=== PATIENT | female | born 1945 | race Caucasian/White ===

== ENCOUNTER → 2019-04-11 00:23 | Outpatient (CLI) | payer MEDICARE, MEDICAID, SELFPAY ==
[2019-04-11 01:01] LABS: Adenovirus F 40/41, stool Not Detected (NotDetected); Astrovirus Not Detected (NotDetected); Campylobacter Not Detected (NotDetected); Clostridium Difficile A/B, PCR Not Detected (NotDetected); Cryptosporidium Not Detected (NotDetected); Cyclospora Cayetanesis Not Detected (NotDetected); Entamoeba histolytica Not Detected (NotDetected); Enteroaggregative E coli Not Detected (NotDetected); Enteropathogenic E coli Not Detected (NotDetected); Enterotoxigenic E coli Not Detected (NotDetected); Giardia lamblia Not Detected (NotDetected); Norovirus Not Detected (NotDetected); Plesimonas Shigalloides, PCR Not Detected (NotDetected); Rotavirus A Not Detected (NotDetected); Salmonella, PCR Not Detected (NotDetected); Sapovirus Not Detected (NotDetected); Shiga-like toxin E coli Not Detected (NotDetected); Shigella Enterovasive E coli Not Detected (NotDetected); Vibrio Cholerae Not Detected (NotDetected); Vibrio, PCR Not Detected (NotDetected); Yersinia Entercolitica, PCR Not Detected (NotDetected)
== END ==
PROVIDERS: PCP Emergency Medicine; Visit Provider Emergency Medicine
DX: R19.7 Diarrhea, unspecified (principal)
CPT/HCPCS: 87275; 87276; 87506

== ENCOUNTER → 2019-08-08 09:52 | Outpatient (CLI) | payer MEDICARE, MEDICAID, SELFPAY ==
--- NOTE | 2019-08-08 09:54 | MM_ITS ---
PROCEDURE: MM DIG SCREENING MAMM BI W/CAD DIGITAL BREAST TOMOSYNTHESIS INCLUDED Patient Age:73Y CLINICAL INDICATION: SCREENING but no hormones but no new complaints. Noncontributory family history. COMPARISON: No exams were available for comparisonPrevious studies over 10 years ago have been purged from [facility].. TECHNIQUE: Standard CC and MLO images were obtained. R2 CAD reviewed. Bilateral digital breast tomosynthesis included. FINDINGS: Generalized fatty replacement. Low-density breast. Of mammography is most optimal in breast of this character, and lower density.. No areas of concern. No dominant mass nor suspicious calcifications.. Previous studies have been purged from [facility]. CAD highlights no significant areas of concern. Scattered benign calcifications bilaterally observed. . Tomosynthesis images show no discrete areas of concern either. Low-density breast IMPRESSION: Unremarkable negative bilateral mammogram. Diffuse the the the the the fatty replacement/low-density breast. No areas concern. Bilateral follow-up 1 year recommended BI-RAD Category: 1 Negative FOLLOW-UP: 1YR 1 Year Follow-up (A letter has been sent to the patient regarding results of the study.) Dictated by: Cordell Castellano MD 08/11/2019 09:50 Electronically signed by Cordell Castellano MD in [place] 08/11/2019 09:50
== END ==
PROVIDERS: PCP Emergency Medicine; Visit Provider Emergency Medicine
DX: Z12.31 Encounter for screening mammogram for malignant neoplasm of breast (principal)
CPT/HCPCS: 77063; 77067

== ENCOUNTER → 2019-10-24 14:29 | Outpatient (CLI) | payer MEDICARE, MEDICAID, SELFPAY ==
[2019-10-24 14:35] LABS: Adenovirus F 40/41, stool Not Detected (NotDetected); Astrovirus Not Detected (NotDetected); Campylobacter Not Detected (NotDetected); Clostridium Difficile A/B, PCR Not Detected (NotDetected); Cryptosporidium Not Detected (NotDetected); Cyclospora Cayetanesis Not Detected (NotDetected); Entamoeba histolytica Not Detected (NotDetected); Enteroaggregative E coli Not Detected (NotDetected); Enteropathogenic E coli Not Detected (NotDetected); Enterotoxigenic E coli Not Detected (NotDetected); Giardia lamblia Not Detected (NotDetected); Norovirus Not Detected (NotDetected); Plesimonas Shigalloides, PCR Not Detected (NotDetected); Rotavirus A Not Detected (NotDetected); Salmonella, PCR Not Detected (NotDetected); Sapovirus Not Detected (NotDetected); Shiga-like toxin E coli Not Detected (NotDetected); Shigella Enterovasive E coli Not Detected (NotDetected); Vibrio Cholerae Not Detected (NotDetected); Vibrio, PCR Not Detected (NotDetected); Yersinia Entercolitica, PCR Not Detected (NotDetected)
== END ==
PROVIDERS: Visit Provider Emergency Medicine
DX: R19.7 Diarrhea, unspecified (principal)
CPT/HCPCS: 87506

== ENCOUNTER 2020-03-05 14:09 | Emergency (ER) | payer MEDICARE, MEDICAID, SELFPAY ==
[2020-03-05 14:10] VITALS: BP 125/90; PULSE 89; RESP 16; TEMP 36.5; O2SAT 98; BMI 31.3
--- NOTE | 2020-03-05 14:29 | XR_ITS ---
PROCEDURE: XR HIP BI W PEL1V CLINICAL INDICATION: fall COMPARISON: No exams were available for comparison FINDINGS: No fracture or dislocation is evident. There is prominent osteophytic spurring right-sided at the L4-5 level. There is a transitional vertebrae lumbosacral junction with unilateral pseudoarthrosis on the left side. Both hips are normally articulated with no significant arthritic change either side. The SI joints and symphysis pubis appear normal. 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 Francisco Shell MD 03/05/2020 15:26 Dr. Francisco Shell MD in [place] 03/05/2020 15:26
--- NOTE | 2020-03-05 14:29 | CT_ITS ---
PROCEDURE: CT LUMBAR SPINE WO CON Referring Doctor: Chavez Engel Patient Age:74Y CLINICAL HISTORY: fall lumbar pain fell 2 days ago with pain low back and coccyx area but of COMPARISON: CR XR HIP BI W PEL1V from 03/05/2020 TECHNIQUE: no IV contrast Axial images obtained with sagittal and coronal reformats. All CT scans at the facility use one or more dose reduction, viz: automated exposure control, ma/kV adjustment per patient size (including targeted exams where dose is matched to indication, i.e. head), or iterative reconstruction technique. FINDINGS: A scanning performed from inferior T10 through S5 sacral vertebra. The coccyx is not included but the sacrum appears intact through this level down to the sacral coccygeal junction. SI joints appear intact with minor degenerative change but L5 is transitional vertebra with sacralization to the left aspect of L5 of there is narrowed L5/S1 disc space due to his transitional nature L4/5.. Degenerative disc space narrowing; diffuse disc bulge with mild posterior ridging. Facet hypertrophy most pronounced to the right. Features combine 2 yield moderate pronounced right recess and right foraminal encroachment . Mild left recess and foraminal encroachment. L3/4. Mild disc space narrowing. Diffuse disc bulge. Mild degenerative anterior listhesis of L3 on L4 3-4 mm here to the left. The diffuse disc bulge most evident towards the left foramen. Prominent facet hypertrophy bilaterally most severe on the left. Combination of features yields moderate central canal stenosis and prominent left foraminal and recess encroachment. Facet hypertrophy indents the thecal sac to the left. Moderate right foraminal encroachment L2/3. Mild diffuse disc bulge There is a minimal inferior endplate fracture/compression fracture at L2. This is most convincing on the axial images, 53 52 51 50. A fracture line can be seen passing along the left aspect of the vertebral body with mild cortical step-off laterally on axial image 51. There also is likely some mild transverse fracture line extending to the posterior cortex on image 53 and 52. I believe we do see some mild edema overlying this fracture on the left on these images as well. . Also note on the sagittal images there is subtle retropulsion at the inferior posterior margin of L2, best seen on sagittal image 34 . This feature does diffusely indent the thecal sac,. Most notable just to the right of midline. Above fracture was not reported on the V preliminary report thus I notified maribel in the ER of these findings and he will have the patient follow-up with orthopedics. L1/2. Mild disc space narrowing posteriorly T12/L1 disc space well maintained T11/12 a degenerative disc space narrowing with scant bulge. T10-11 degenerative disc space narrowing. Anterior marginal osteophytes are most evident lower thoracic spine and minimal at the thoracic Atherosclerotic calcification origin of the renal arteries but no additional retroperitoneal findings transverse processes intact IMPRESSION: 1..Mild acute compression fracture at the inferior aspect of L2 vertebral body . With this there is slight retropulsion of the inferior posterior corner of L2 but this only slightly indents the thecal sac. 2..--Multilevel degenerative changes lumbar spine: .. L3/4. Spinal stenosis and foraminal/recess encroachment most pronounced to the left. Mild degenerative anterolisthesis of L3 on 4. Exuberant facet hypertrophy most pronounced to the left, along with diffuse disc bulge more evident than left yield a left foraminal recess encroachment along with spinal stenosis ..L4/5: Degenerated disc w
[2020-03-05 14:39] VITALS: BP 125/90; PULSE 85; O2SAT 93
[2020-03-05 15:09] VITALS: BP 110/63; PULSE 82
--- NOTE | 2020-03-05 15:39 | PC.NURSE ---
Patient gone to radiology
--- NOTE | 2020-03-05 15:58 | PC.NURSE ---
pt returned from rad
--- NOTE | 2020-03-05 16:13 | HMH.EDFALL ---
ED Disposition Clinical Impression: Chronic back pain Qualifiers: Back pain location: low back pain Back pain laterality: midline Sciatica presence: without sciatica Qualified Code(s): M54.5 - Low back pain; G89.29 - Other chronic pain Disposition: Xfer SNF Condition on Discharge: Good Instructions: DI for Chronic Pain -- Adult Additional Instructions: Recommend Tylenol and ibuprofen for chronic back pain. Would not recommend opiates for managing this pain and further follow-up should be with primary care. Referrals: Zaheer Buchanan MD [Primary Care Provider] - - Critical Care Critical Care Time: No Attestation: On 03/05/20, the high probability of a clinically significant, sudden or life threatening deterioration of the following system(s) required my full and direct attention, intervention and personal management. The time I documented below is in addition to time spent performing reported procedures but includes the following listed in this critical care notation. Medical Decision Making - Paramjit Inquiry Pt receiving controlled substance: No Vital Signs: 03/05/20 14:10 03/05/20 14:39 03/05/20 15:09 Temperature 97.7 F Temperature Source Oral Pulse Rate [Radial] 89 85 82 Respiratory Rate 16 Blood Pressure [Right Arm] 125/90 125/90 110/63 Blood Pressure Mean [Right Arm] 101 101 78 Blood Pressure Source [Right Arm] Automatic Cuff Automatic Cuff Blood Pressure Position [Right Arm] Sitting Sitting Sitting 02 Sat by Pulse Oximetry 98 93 L Oxygen Delivery Method Room Air Room Air Orders (Tests/Meds): ED MEDICATIONS Discontinued Medications Generic Name Dose Route Start Last Admin Trade Name Freq PRN Reason Stop Dose Admin Acetaminophen 650 mg 03/05/20 14:31 03/05/20 15:58 Acetaminophen 325mg Tab PO 03/05/20 14:32 650 mg ONCE ONE Administration Ibuprofen 400 mg 03/05/20 14:31 03/05/20 15:58 Ibuprofen 400 Mg Tablet PO 03/05/20 14:32 400 mg ONCE ONE Administration ORDERS Category Date Time Status CT lumbar spine wo con Stat Cat Scan 03/05/20 14:29 Taken - Radiology Data #1 Image(s): Pelvis, Hip Image Reviewed: Yes I reviewed the patient's radiology image, Yes I have reviewed radiologist's interpretation Preliminary Findings: Normal/NAD - CT Data CT Scan: L-Spine Time Received: 16:[address] Reviewed: Yes: I have viewed the radiologist's interpretation Preliminary Findings: Normal/NAD Medical Decision Narrative: 74-year-old female who presents for reevaluation from a fall that happened on 1221. Patient is well-appearing and nontoxic on initial examination has no compressive symptoms and no focal neurologic deficits. Hip x-rays and pelvic x-rays will be ordered as well as a lumbar spine CT. Patient is given Tylenol and ibuprofen for pain. X-rays were reviewed demonstrating no acute abnormalities. CT spine demonstrates no acute fracture or other abnormalities. Patient will be discharged back to custodial facility. Fall HPI - General Chief Complaint: Fall Stated Complaint: PAIN Time Seen by Provider: 03/05/20 14:15 Mode of Arrival: EMS Source of Information: Patient, EMS Limitations: No Limitations Description of Symptoms (Recalled from ER Triage Doc. by RN): TO ED PER SQUAD WITH C/O FALL 02/27 WITH CONTINUED LATRELL HIP PAIN SINCE NEG. XRAYS. PT OUT OF TYLENOL #3 LAST DOSE 03/03. - History of Present Illness HPI Narrative: 74-year-old fall from nursing facility fell on the was evaluated with x-rays and sent back. She is continued to have severe lower back pain and was sent back for further evaluation including CT scan. Patient states that the pain is sharp and is similar to chronic back pain. Denies head trauma related to the fall denies headache at this time denies fever, chills, body aches. Denies difficulty with urination, weakness of the legs, saddle anesthesia. Has not fallen since that first fall on the . - Related Data
--- NOTE | 2020-03-05 16:44 | PC.NURSE ---
[facility] called to transfer pt back to [facility]
--- NOTE | 2020-03-05 16:44 | PC.NURSE ---
report called to rudy
[2020-03-05 17:11] VITALS: BP 112/70; PULSE 70; RESP 16; TEMP 36.8; O2SAT 98
== END 2020-03-05 17:12 ==
PROVIDERS: Emergency Provider Student in an Organized Health Care Education/Training Program; PCP Emergency Medicine
DX: S32.049A Unspecified fracture of fourth lumbar vertebra, initial encounter for closed fracture (principal); W01.0XXA Fall on same level from slipping, tripping and stumbling without subsequent striking against object, initial encounter; Y92.019 Unspecified place in single-family (private) house as the place of occurrence of the external cause; G89.29 Other chronic pain; E03.9 Hypothyroidism, unspecified; F03.90 Unspecified dementia, unspecified severity, without behavioral disturbance, psychotic disturbance, mood disturbance, and anxiety; E11.9 Type 2 diabetes mellitus without complications; F41.8 Other specified anxiety disorders; I10 Essential (primary) hypertension; E78.5 Hyperlipidemia, unspecified; Z79.899 Other long term (current) drug therapy
CPT/HCPCS: 72131; 73521; 99283

== ENCOUNTER → 2020-03-08 08:39 | Outpatient (POV) | payer MEDICARE, MEDICAID, SELFPAY ==
[2020-03-08 08:51] VITALS: BP 133/78; PULSE 74; RESP 18; O2SAT 98; BMI 31.5
--- NOTE | 2020-03-08 09:16 | HMH.PMCON ---
Assessment and Plan (1) Compression fracture Status: Acute Category: Medical (2) Low back pain Status: Acute Category: Medical Code(s): M54.5 - Low back pain - Assessment and plan all Dx Assessment and Plan for all problems:: Patient recently had a fall. She is having worsening pain in her left low back area and left buttock. The CT scan was performed on her lumbar spine, however, did not review her coccyx. She is having coccygeal pain as well. We will send the patient for an MRI of her lumbar spine along with her coccyx. She is on Plavix therapy if she does need to undergo any type of procedures in the future. She is on Plavix for a history of strokes. Patient and I did discuss that we will not be able to provide her with any type of oral medications. She will need to seek medication management with in her long-term care facility provider recommendation. We did give the patient a position brace for her back today to wear until her next appointment for follow-up of her MRI. She has been encouraged to wear the brace while awake and when out of bed. Patient CT scan did note an L2 compression fracture, however, she is not complaining of any pain in this area. We will see her back to discuss her MRI. She has been instructed to contact clinic if she has any concerns for next morning. The patient and I specifically discussed risk factors for COVID19. These risks include, but are not limited to age greater than 60, heart or lung disease, diabetes, immunosuppression, and travel. We also discussed NSAIDs may worsen COVID19 infection or symptoms. Patient should not use NSAIDs to treat COVID19 signs or symptoms. Patient was also informed that any type of corticosteroid of any form (oral or injection) will decrease the patient's immune system response and may increase the likelihood of COVID19 infection and symptoms. And HPI - Data of Consult Patient: new to practice Consult date: 03/08/20 Requesting Physician: Dinora Patterson APRN Primary Care Provider: Zaheer Buchanan MD - Consult Narrative Reason for consult: Low back pain, left buttock pain History of present illness: Ms. David is a 74 year old female who is a resident of a local long-term care facility. Patient recently had a fall at the long-term care facility. Immediately after, she developed severe left low back pain with radiation into her left buttock. The pain is nonradiating into her lower extremities. Patient says she did not have any type of back pain prior to the fall. She says that she fell on her tailbone . She says that is where most of her pain is at. She does sit in a wheelchair mostlu through the day and says this does worsen her pain. She has difficulty with ambulation. She says her pain is a 9 out of 10 while sitting. She has been taking Tylenol 3 in the facility, however, she will not have enough to get her through the week end. She is accompanied by a employee of the long-term care facility today. Per the long-term care facility employee, Dr. Buchanan is on vacation and cannot prescribe her medication. I did discuss with the employee that someone should be process control tech for the patient through the weekend to discuss a further plan of care for medication management. Unfortunately, the patient and I did discuss that we will not be able to provide her with any type of oral medication. She did have a CT scan in the emergency room. The patient did go to the emergency room following the fall. We will review her CT scan today. CC: Dinora Patterson APRN [facility] History I have reviewed the patient's past medical history: Yes Medical History: Reports:: Anxiety, Cerebrovascular Accident, Dementia, Depression, Hyperlipidemia, Hypertension Denies:: Cancer, Diabetes Mellitus Type 1, Diabetes Mellitus Type 2, MRSA *Have you ever received a pneumonia vaccine?: Yes *Have you received a flu vaccine this season?: Yes Other Medical History: Reports: Cataracts, Hy
== END ==
PROVIDERS: PCP Emergency Medicine; Visit Provider Clinical Nurse Specialist Family Health
DX: T14.8XXA Other injury of unspecified body region, initial encounter; W19.XXXA Unspecified fall, initial encounter; Z79.01 Long term (current) use of anticoagulants
CPT/HCPCS: 99202

== ENCOUNTER → 2020-03-14 09:32 | Outpatient (CLI) | payer MEDICARE, MEDICAID, SELFPAY | PROVIDERS: PCP Emergency Medicine; Visit Provider Clinical Nurse Specialist Family Health | DX: M54.5 Low back pain (principal) ==

== ENCOUNTER → 2020-03-22 10:26 | Outpatient (POV) | payer MEDICARE, MEDICAID, SELFPAY ==
[2020-03-22 11:16] VITALS: BP 138/85; PULSE 89; RESP 18; TEMP 36.9; O2SAT 98; BMI 36.1
--- NOTE | 2020-03-22 14:54 | P.CONS_ITS ---
[facility] Pain Management SOAP Note Subjective:: Patient is a pleasant 74-year-old white female who presents today for follow-up. Patient is having a lot of left hip and back pain. Patient has pain over her SI joint. She has a positive Saul test SI joint compression test Craig's test on the left side along with left hip pain. Patient has no radiation of the pain at this time. Patient does not have low back pain at this time patient had a recent fall and this contributed to her pain. Patient and I discussed a SI joint injection she is interested in pursuing this. She is currently a residential resident. ROS General: no recent weight change, no fever, no sleep disturbances Respiratory: no cough, no shortness of air, no recurring pulmonary infections Cardiovascular/Peripheral Vascular: No chest pain, No palpitations, no edema, no shortness of breath. Gastrointestinal: no new onset incontinence, normal bowel movements reported Genitourinary: no new onset incontinence Musculoskeletal: Back pain, SI joint pain The left side Psychiatric: normal mood/ affect Neurological: [denies new onset weakness in extremities], [denies new onset balance issues] Objective:: Physical Exam General: Alert and oriented x3, no acute distress, pleasant and cooperative, [on room air] Lungs: Resps E/U, Symmetrical chest expansion, Eyes: PERRL Musculoskeletal: Flexion and extension of lumbar spine somewhat guarded secondary to pain, deep tendon reflexes normal, strength in upper and lower extremities [5/5], [abnormal gait noted] Neurological: speech clear, cancer program coordinator equal, no gross sensory deficits Assessment:: Sacroiliitis Plan:: We will schedule the patient for left SI joint injection. I will follow-up with her after her injection reassess her symptoms at that time she has been instructed to call the office if she has any issues prior to her next appointment. Patient was ordered an MRI however she was unable to complete it due to pain. Dr. Delgado has reviewed this note and agrees with this plan of care. This note was dictated using voice recognition software and may contain errors or omissions [facility] History I have reviewed the patient's past medical history: Yes Medical History: Reports:: Anxiety, Cerebrovascular Accident, Dementia, Depression, Hyperlipidemia, Hypertension Denies:: Cancer, Diabetes Mellitus Type 1, Diabetes Mellitus Type 2, MRSA *Have you ever received a pneumonia vaccine?: Yes *Have you received a flu vaccine this season?: Yes Other Medical History: Reports: Cataracts, Hypothyroidism, Thyroid Disease Amputation: No Fractures: No - *Social History Smoking Status: Never smoker Alcohol Intake: never *Occupational Status:: other Housing: house Household Members: other *Travel in the last 8 weeks: None - Psychiatric History Pschychiatric History:: Reports:: Anxiety, Depression Family Hx:: No significant family history
== END ==
PROVIDERS: Visit Provider Clinical Nurse Specialist Family Health
DX: M46.1 Sacroiliitis, not elsewhere classified (principal)
CPT/HCPCS: 99212; G0463

== ENCOUNTER → 2020-04-13 10:06 | Day surgery (SDC) | payer MEDICARE, MEDICAID, SELFPAY ==
[2020-04-13 10:14] VITALS: BP 149/96; PULSE 110; RESP 20; TEMP 36.3; O2SAT 98; BMI 35.2
--- NOTE | 2020-04-13 10:41 | P.PCN_ITS ---
- Procedure Date: 04/13/20 Time: 10:41 Anesthesiologist:: Dylan Delgado MD Complications:: None Pre-procedure Diagnosis:: Sacroiliitis Post-procedure Diagnosis:: Same Indications for Procedure:: Patient is a pleasant 74-year-old white female who we are treating for left- sided hip pain. She is tender over the left SI joint. She does have a positive Craig's test on the left side. She is positive Saul test on left side. She is positive SI joint compression test on left side. Will do left SI joint injection under fluoroscopy today to help with her pain symptoms. Procedure Details:: Left SI joint injection under fluoroscopy Informed consent was obtained and the risks and benefits of the procedure was explained to the patient. Patient was taken to the procedure room. Patient was placed prone on the procedure table. The left hip was prepped using ChloraPrep. The skin and subcutaneous tissues were anesthetized using lidocaine. I placed a 22-gauge spinal needle into the inferior aspect of the left SI joint. Needle placement was confirmed with dye. After this we injected 5 mL bupivacaine 0.25% and Depo-Medrol 40 mg into the left SI joint. The patient tolerated the procedure well with no complication. Plan and Disposition:: We will follow-up with her in 2 weeks. Will reevaluate her symptoms at that time.
[2020-04-13 10:43] VITALS: BP 132/85; PULSE 85; RESP 18
[2020-04-13 10:44] VITALS: BP 128/89; PULSE 85; RESP 18; O2SAT 99
[2020-04-13 10:51] VITALS: BP 140/90; PULSE 99; RESP 18; O2SAT 98
== END | disposition home or self-care (01) ==
PROVIDERS: PCP Emergency Medicine; Visit Provider Anesthesiology
DX: M46.1 Sacroiliitis, not elsewhere classified (principal); I10 Essential (primary) hypertension; E78.5 Hyperlipidemia, unspecified; Z88.8 Allergy status to other drugs, medicaments and biological substances; Z87.448 Personal history of other diseases of urinary system; E07.9 Disorder of thyroid, unspecified
CPT/HCPCS: 27096; G0260; J1040; Q9966

== ENCOUNTER → 2020-05-10 11:30 | Outpatient (POV) | payer MEDICARE, MEDICAID, SELFPAY ==
[2020-05-10 11:46] VITALS: BP 133/78; PULSE 85; RESP 18; O2SAT 98; BMI 43.0
--- NOTE | 2020-05-10 12:04 | HMH.PAINSOAP ---
[facility] Pain Management SOAP Note Subjective:: Patient is a pleasant 74-year-old white female who presents today for follow-up after a left SI joint injection. Patient says that she got up to 70% relief for about a month after the injection. Her pain has returned. She says that the pain is radiating into her left low back left buttock and left hip. She rates her pain a 7 out of 10 today. She would like to follow-up with her repeat Christopher injection. Review of Systems General: No recent weight changes, no fever, no sleep disturbances Respiratory: No cough, no shortness of air, no recurring pulmonary infections Cardiovascular/peripheral vascular: No chest pain, no palpitations, no edema, no shortness of breath Gastrointestinal: No new onset incontinence, normal bowel movements reported Genitourinary: No new onset incontinence Musculoskeletal: Left low back pain radiating into left buttock and left hip and left leg Psychiatric: Normal mood/affect Neurological: [Denies weakness in extremities], [denies balance issues] Objective:: Physical exam General: Alert and oriented x3, no acute distress, pleasant and cooperative, [on room air] Lungs: Respirations even and unlabored, symmetrical chest expansion Eyes: PERRL Musculoskeletal: Flexion and extension of lumbar spine somewhat guarded secondary to pain, deep tendon reflexes normal, strength in upper and lower extremities [5/5], [abnormal gait noted], positive Craig's test, positive compression test, positive distraction test Neurological: Speech clear, prep person equal, no gross sensory deficit Assessment:: Sacroiliitis left side, low back pain Plan:: We will schedule the patient for repeat left SI joint injection. She did get 70% relief for about a month. We will plan to see her back in the clinic after injection to reevaluate her symptoms. She will continue with a home stretching program. She has been instructed to contact clinic if she has any concerns before her next appointment. Risks and benefits of the procedure have been explained to the patient. Patient would like to proceed with the procedure. The patient and I specifically discussed risk factors for COVID19. These risks include, but are not limited to age greater than 60, heart or lung disease, diabetes, immunosuppression, and travel. We also discussed NSAIDs may worsen COVID19 infection or symptoms. Patient should not use NSAIDs to treat COVID19 signs or symptoms. Patient was also informed that any type of corticosteroid of any form (oral or injection) will decrease the patient's immune system response and may increase the likelihood of COVID19 infection and symptoms[address] Dr. Delgado has reviewed this note and agrees with this plan of care. This note was dictated using voice recognition software and make contain errors or omissions. [facility] History I have reviewed the patient's past medical history: Yes Medical History: Reports:: Anxiety, Cerebrovascular Accident, Dementia, Depression, Diabetes Mellitus Type 2, Hyperlipidemia, Hypertension Denies:: Cancer, Diabetes Mellitus Type 1, Internal Pacemaker, MRSA, Seizures *Have you ever received a pneumonia vaccine?: Yes *Have you received a flu vaccine this season?: Yes Other Medical History: Reports: Cataracts, Hypothyroidism, Thyroid Disease Other Surgeries: No: Pacemaker Amputation: No Fractures: No - *Social History Smoking Status: Never smoker Alcohol Intake: never *Occupational Status:: other Housing: assisted living facility Household Members: other *Travel in the last 8 weeks: None - Psychiatric History Pschychiatric History:: Reports:: Anxiety, Depression Family Hx:: No significant family history
== END ==
PROVIDERS: PCP Emergency Medicine; Visit Provider Clinical Nurse Specialist Family Health
DX: M46.1 Sacroiliitis, not elsewhere classified (principal); M54.5 Low back pain
CPT/HCPCS: 99212; G0463

== ENCOUNTER 2020-05-18 10:33 | Day surgery (SDC) | payer MEDICARE, MEDICAID, SELFPAY ==
[2020-05-18 11:37] VITALS: BP 102/67; PULSE 79; RESP 18; TEMP 36.1; O2SAT 93; BMI 28.8
[2020-05-18 12:05] VITALS: BP 125/78; PULSE 74; RESP 18
[2020-05-18 12:06] VITALS: BP 132/78; PULSE 74; RESP 18; O2SAT 98
--- NOTE | 2020-05-18 12:11 | HMH.PMPROC ---
- Procedure Date: 05/18/20 Time: 12:11 Anesthesiologist:: Dylan Delgado MD Complications:: None Pre-procedure Diagnosis:: Sacroiliitis Post-procedure Diagnosis:: Same Indications for Procedure:: This patient is a pleasant 74-year-old white female who we are treating for left-sided hip pain. She is tender over the left SI joint. She is positive Craig's test on the left side. She is positive Saul test on left side. She has positive SI joint compression test on the left side. She has a positive distraction test on the left side. She is done well with previous SI joint injections on the left side. She was 70 to 80% better for a couple months after her last injection. Her pain is now returned we will do a repeat left SI joint injection under fluoroscopy today. Procedure Details:: Left SI joint injection under fluoroscopy Informed consent was obtained and the risks and benefits of the procedure was explained to the patient. Patient was taken to the procedure room. Patient was placed prone on the procedure table. The left hip was prepped using ChloraPrep. The skin and subcutaneous tissues were anesthetized using lidocaine. I placed a 22-gauge spinal needle into the inferior aspect of the left SI joint. Needle placement was confirmed with dye. After this we injected 5 mL bupivacaine 0.25% and Depo-Medrol 40 mg into the left SI joint. The patient tolerated the procedure well with no complication. Plan and Disposition:: We will follow-up with her in 2 weeks. Will reevaluate symptoms at that time.
[2020-05-18 12:35] VITALS: BP 109/64; PULSE 72; RESP 20; O2SAT 93
== END 2020-05-18 12:20 | disposition home or self-care (01) ==
LOC: SC.PAINP 10:35
PROVIDERS: PCP Emergency Medicine; Visit Provider Anesthesiology
DX: M46.1 Sacroiliitis, not elsewhere classified (principal); I10 Essential (primary) hypertension; F32.9 Major depressive disorder, single episode, unspecified; Z86.73 Personal history of transient ischemic attack (TIA), and cerebral infarction without residual deficits; E78.5 Hyperlipidemia, unspecified; K21.9 Gastro-esophageal reflux disease without esophagitis; E07.9 Disorder of thyroid, unspecified
CPT/HCPCS: 27096; G0260; J1040; Q9966

== ENCOUNTER → 2020-06-21 10:43 | Outpatient (POV) | payer MEDICARE, MEDICAID, SELFPAY ==
[2020-06-21 11:23] VITALS: BP 125/71; PULSE 69; RESP 18; TEMP 37; O2SAT 98; BMI 34.4
--- NOTE | 2020-06-21 11:24 | P.CONS_ITS ---
[facility] Pain Management SOAP Note Subjective:: Patient is a pleasant 74-year-old white female who presents today for follow-up after her left SI joint injection. Patient rates her pain a 0 out of 10 she is doing extremely well. Patient states that her pain has resolved since the injection. She states she is resting better. Patient is in a facility for assisted living. ROS General: no recent weight change, no fever, no sleep disturbances Respiratory: no cough, no shortness of air, no recurring pulmonary infections Cardiovascular/Peripheral Vascular: No chest pain, No palpitations, no edema, no shortness of breath. Gastrointestinal: no new onset incontinence, normal bowel movements reported Genitourinary: no new onset incontinence Musculoskeletal: Back pain at times Psychiatric: normal mood/ affect Neurological: [denies new onset weakness in extremities], [denies new onset balance issues] Objective:: Physical Exam General: Alert and oriented x3, no acute distress, pleasant and cooperative, [on room air] Lungs: Resps E/U, Symmetrical chest expansion, Eyes: PERRL Musculoskeletal: Flexion and extension of lumbar spine somewhat guarded secondary to pain, deep tendon reflexes normal, strength in upper and lower extremities [5/5], utilizes wheelchair Neurological: speech clear, switchboard operator helper equal, no gross sensory deficits Assessment:: Sacroiliitis Plan:: We will see the patient back in 3 months reassess her symptoms at that time. I did write notes to her care facility to encourage them to call our office if she needs injections prior to this. Dr. Delgado has reviewed this note and agrees with this plan of care. This note was dictated using voice recognition software and may contain errors or omissions [facility] History I have reviewed the patient's past medical history: Yes Medical History: Reports:: Anxiety, Cerebrovascular Accident, Dementia, Depression, Diabetes Mellitus Type 2, Hyperlipidemia, Hypertension Denies:: Cancer, Diabetes Mellitus Type 1, Internal Pacemaker, MRSA, Seizures *Have you ever received a pneumonia vaccine?: Yes *Have you received a flu vaccine this season?: Yes Other Medical History: Reports: Cataracts, Hypothyroidism, Thyroid Disease Other Surgeries: Yes: No Previous Surgery. No: Pacemaker Amputation: No Fractures: No - *Social History Smoking Status: Never smoker Alcohol Intake: never *Occupational Status:: other Housing: assisted living facility Household Members: caregiver *Travel in the last 8 weeks: None - Psychiatric History Pschychiatric History:: Reports:: Anxiety, Depression Family Hx:: No significant family history
== END ==
PROVIDERS: Visit Provider Clinical Nurse Specialist Family Health
DX: M46.1 Sacroiliitis, not elsewhere classified (principal)
CPT/HCPCS: 99212; G0463

== ENCOUNTER → 2020-08-08 10:48 | Outpatient (CLI) | payer MEDICARE, MEDICAID, SELFPAY ==
--- NOTE | 2020-08-08 10:49 | MM_ITS ---
PROCEDURE INFORMATION: Exam: MG Screening 3D Mammography Exam date and time: 08/08/2020 10:49 AM Age: 74 years old Clinical indication: Encounter for screening mammogram for malignant neoplasm of breast TECHNIQUE: Imaging protocol: Screening tomosynthesis and 2D mammography including computer-aided detection (CAD) when performed. COMPARISON: MG MM DIG SCREENING MAMM BI W/CAD 08/08/2019 9:55 AM FINDINGS: MAMMOGRAPHY: Breast composition: The breasts are almost entirely fatty. Mass: None. Architectural distortion: None. Calcifications: No suspicious calcifications. Asymmetric density: None. Skin thickening: None. Axillary adenopathy: None. IMPRESSION: No mammographic evidence of malignancy. Annual screening is recommended unless otherwise clinically indicated. ASSESSMENT: BI-RADS Category 1: Negative
== END ==
PROVIDERS: PCP Emergency Medicine; Visit Provider Emergency Medicine
DX: Z12.31 Encounter for screening mammogram for malignant neoplasm of breast (principal)
CPT/HCPCS: 77063; 77067

== ENCOUNTER → 2020-09-27 10:10 | Outpatient (POV) | payer MEDICARE, MEDICAID, SELFPAY ==
[2020-09-27 10:36] VITALS: PULSE 70; RESP 18; O2SAT 99; BMI 40.0
--- NOTE | 2020-09-27 13:39 | P.CONS_ITS ---
[facility] Pain Management SOAP Note Subjective:: Patient is a pleasant 75-year-old white female for follow-up. She has been treated in the past in the clinic for left sacroiliitis. Her pain is a 0 out of 10 today. She is doing well with no significant changes. She says that she is much more functional since having her injections. Her injection was performed in June 2020. Review of Systems General: No recent weight changes, no fever, no sleep disturbances Respiratory: No cough, no shortness of air, no recurring pulmonary infections Cardiovascular/peripheral vascular: No chest pain, no palpitations, no edema, no shortness of breath Gastrointestinal: No new onset incontinence, normal bowel movements reported Genitourinary: No new onset incontinence Musculoskeletal: No pain Psychiatric: Normal mood/affect Neurological: [Denies weakness in extremities], [denies balance issues] Objective:: Physical exam General: Alert and oriented x3, no acute distress, pleasant and cooperative, [on room air] Lungs: Respirations even and unlabored, symmetrical chest expansion Eyes: PERRL Musculoskeletal: Flexion and extension of [] spine nonguarded, deep tendon reflexes normal, strength in upper and lower extremities [5/5], [abnormal gait noted] Neurological: Speech clear, vegetable preparer equal, no gross sensory deficit Assessment:: Sacroiliitis left Plan:: Patient is doing well overall. We will plan to follow-up with her in 6 months for reevaluation of symptoms. She has been instructed to contact the clinic if she has any concerns before next appointment. Patient has been instructed to contact the clinic with any concerns before the next appointment. Dr. Delgado has reviewed this note and agrees with this plan of care. This note was dictated using voice recognition software and make contain errors or omissions. [facility] History I have reviewed the patient's past medical history: Yes Medical History: Reports:: Anxiety, Cerebrovascular Accident, Dementia, Depression, Diabetes Mellitus Type 2, Hyperlipidemia, Hypertension Denies:: Cancer, Diabetes Mellitus Type 1, Internal Pacemaker, MRSA, Seizures *Have you ever received a pneumonia vaccine?: Yes *Have you received a flu vaccine this season?: Yes Other Medical History: Reports: Cataracts, Hypothyroidism, Thyroid Disease Other Surgeries: Yes: No Previous Surgery. No: Pacemaker Amputation: No Fractures: No - *Social History Smoking Status: Never smoker Alcohol Intake: never *Occupational Status:: unemployed Housing: assisted living facility Household Members: caregiver *Travel in the last 8 weeks: None - Psychiatric History Pschychiatric History:: Reports:: Anxiety, Depression Family Hx:: No significant family history
== END ==
PROVIDERS: Visit Provider Clinical Nurse Specialist Family Health
DX: M46.1 Sacroiliitis, not elsewhere classified (principal)
CPT/HCPCS: 99212; G0463

== ENCOUNTER 2021-01-07 13:09 | Emergency (ER) | payer MEDICARE, MEDICAID, SELFPAY ==
[2021-01-07 13:09] VITALS: BP 106/45; PULSE 79; RESP 20; TEMP 36.4; O2SAT 98; BMI 28.1
--- NOTE | 2021-01-07 13:14 | CT_ITS ---
PROCEDURE: CT HEAD/BRAIN WO CON CLINICAL INDICATION: trauma Head injury with headache/pain, contusion, abrasion or hematoma COMPARISON: CT HEADWO CT head/brain wo con from 06/25/[address] head/brain wo con from 07/13/2017 TECHNIQUE: Axial images obtained. All CT scans at the facility use one or more dose reduction, viz: automated exposure control, ma/kV adjustment per patient size (including targeted exams where dose is matched to indication, i.e. head), or iterative reconstruction technique. FINDINGS: No midline shift, mass effect, intracranial hemorrhage, hydrocephalus, or extra-axial fluid collection is evident. There is generalized atrophy with hypoattenuation of the periventricular white matter consistent with microangiopathic changes. 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 Old lacunar infarctions involve the left basal ganglia. No acute calvarial fracture. No mastoid effusion or sinus air-fluid level. 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 Dictated by: Shayne Zhao MD 01/07/2021 14:01 Shayne Zhao MD in [facility] 01/07/2021 14:01
--- NOTE | 2021-01-07 13:23 | ECG_ITS ---
APPROVED REPORT Exam: Resting ECG HR:82 bpm ECG Measurements Heart Rate 82 AXES OK 166 P 44 QRSd 88 QRS 50 QT 418 T 72 QTc 488 Conclusion Sinus rhythm with premature atrial complexes with aberrant conduction Low voltage QRS Borderline ECG Electronically signed by : Trent Buchanan MD 01/07/2021 20:20:40
[2021-01-07 13:37] LABS: Basophils # 0.1 K/mm3 (0-0.2); Basophils % 0.7 % (0.1-2.0); Eosinophils # 0.3 K/mm3 (0.0-0.4); Eosinophils % 3.1 % (0.1-12.0); Hematocrit 35.9 % (37.0-47.0); Hemoglobin 11.3 g/dL (12.2-16.2); Lymphocytes # 4.2 K/mm3 (0.7-4.5); Lymphocytes % 44.5 % (10-50); Mean Corpuscular HGB Conc 31.4 g/dL (31.8-35.4); Mean Corpuscular Hemoglobin 29.6 pg (27.0-31.2); Mean Corpuscular Volume 94.2 fl (81-99); Monocytes # 0.4 K/mm3 (0.1-1.0); Monocytes % 4.1 % (1.7-9.3); Neutrophils # 4.5 K/mm3 (1.8-7.8); Neutrophils % 47.7 % (37.0-80.0); Platelet Count 256 K/mm3 (142-424); Red Blood Count 3.81 M/mm3 (4.20-5.40); Red Cell Distribution Width 13.9 % (11.5-17.5); White Blood Count 9.5 K/mm3 (4.8-10.8)
[2021-01-07 13:42] LABS: Chloride 104 mmol/L (98-107); Potassium 4.8 mmoL/L (3.5-5.1)
[2021-01-07 13:43] LABS: Sodium 140 mmol/L (136-145)
[2021-01-07 13:45] LABS: Blood Urea Nitrogen 23 mg/dl (7-17); Creatinine Clearance Estimated 40 mL/min (50-200); Estimated Glomerular Filt Rate 32 ml/min (>60); GFR (African American) 38 ML/MIN (>60)
[2021-01-07 13:46] LABS: Glucose 141 mg/dl (74-100)
[2021-01-07 13:47] LABS: Anion Gap 16.8 mEq/L (5-15); Calcium 8.5 mg/dl (8.4-10.2); Carbon Dioxide 24 mmol/L (22.0-30.0); INR 0.97 (0.9-1.1)
--- NOTE | 2021-01-07 14:09 | HMH.EDGENADL ---
ED Disposition Clinical Impression: Fall Qualifiers: Encounter type: initial encounter Qualified Code(s): W19.XXXA - Unspecified fall, initial encounter Disposition: Home, Self-Care Condition on Discharge: Good Additional Instructions: No acute findings. Possible aneurysm appreciated on CT. You cannot have a contrasted CT study because of your kidney function. Recommend outpatient MRA. Your PCP will have to order this. Referrals: Provider,Referral, [Primary Care Provider] - (1 to 2 days PCP) Time of Disposition: 14:13 - Critical Care Critical Care Time: No Attestation: On 01/07/21, the high probability of a clinically significant, sudden or life threatening deterioration of the following system(s) required my full and direct attention, intervention and personal management. The time I documented below is in addition to time spent performing reported procedures but includes the following listed in this critical care notation. Medical Decision Making - Medical Records Medical records reviewed: Yes: I reviewed the patient's medical records. - Paramjit Inquiry Pt receiving controlled substance: No Vital Signs: 01/07/21 13:09 Temperature 97.6 F Temperature Source Oral Pulse Rate [Left Radial] 79 Respiratory Rate 20 Blood Pressure [Right Arm] 106/45 L Blood Pressure Mean [Right Arm] 65 Blood Pressure Source [Right Arm] Automatic Cuff Blood Pressure Position [Right Arm] Sitting 02 Sat by Pulse Oximetry 98 Oxygen Delivery Method Room Air - Lab Data Lab results reviewed: Yes: I reviewed the patient's lab results. Lab Results 01/07/21 13:30: WBC 9.5, RBC 3.81 L, Hgb 11.3 L, Hct 35.9 L, MCV 94.2, MCH 29.6, MCHC 31.4 L, RDW 13.9, Plt Count 256, MPV 9.0, Neut % (Auto) 47.7, Lymph % (Auto) 44.5, [place] % (Auto) 4.1, Eos % (Auto) 3.1, Baso % (Auto) 0.7, Neut # (Auto) 4.5, Lymph # (Auto) 4.2, [place] # (Auto) 0.4, Eos # (Auto) 0.3, Baso # (Auto) 0.1 01/07/21 13:30: PT 11.0, INR 0.97 01/07/21 13:30: Sodium 140, Potassium 4.8, Chloride 104, Carbon Dioxide 24, Anion Gap 16.8 H, BUN 23 H, Creatinine 1.60 H, Estimated Creat Clear 40, Estimated GFR 32 L, Est GFR ( Amer) 38 L, Glucose 141 H, Calcium 8.5 Result diagrams: 01/07/21 13:30 01/07/21 13:30 - CT Data CT Scan: Head Time Received: 14:[address] Reviewed: Yes: I have viewed the radiologist's interpretation Preliminary Findings: Abnormal Findings Narrative: No acute intracranial finding 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 - ECG Data Tracing #1 I reviewed this ECG and interpreted as documented below: Sinus rhythm with occasional PAC. [address] elevation or depression. Normal intervals. ECG initial impression date: 01/07/21 ECG initial impression time: 13:24 Medical Decision Narrative: 75yo F evaluated for bumping her head on the wall. Patient no acute distress on initial evaluation. CT obtained and reviewed as above. They do recommend a CTA versus MRA. Patient's creatinine function is such that she cannot have a CTA. Patient can have MRA arranged outpatient. No acute findings on today's evaluation. General Adult HPI - General Chief complaint: Head Injury Stated complaint: injury to head Time Seen by Provider: 01/07/21 14:00 Mode of Arrival: EMS Limitations: No Limitations Description of Symptoms (Recalled from ER Triage Doc. by RN): pt hit her head on the wall when getting out of bed at the half-way. Pt denies any issues at this time. No loc - History of Present Illness HPI narrative: 75yo F presents the emergency department from half-way after bumping her head on the wall. Patient reports she stood up bumped her head on the wall and then sat back down in the bed. Denies any headache, visual change, nausea or vomiting. No history of intracranial bleed. Takes Plavix. Denies any other acute concerns at this time. - Related Data Home Medications Medication Instructions Recor
[2021-01-07 14:23] VITALS: BP 118/56; PULSE 80; RESP 20; TEMP 36.4; O2SAT 98
--- NOTE | 2021-01-07 14:27 | PC.NURSE ---
called report to ruyd that pt was returning
== END 2021-01-07 14:26 | disposition home or self-care (01) ==
PROVIDERS: Emergency Provider Family Medicine
DX: S00.90XA Unspecified superficial injury of unspecified part of head, initial encounter (principal); W18.00XA Striking against unspecified object with subsequent fall, initial encounter; Y92.122 Bedroom in nursing home as the place of occurrence of the external cause; F41.8 Other specified anxiety disorders; E78.5 Hyperlipidemia, unspecified; I10 Essential (primary) hypertension; E03.9 Hypothyroidism, unspecified; Z79.01 Long term (current) use of anticoagulants
CPT/HCPCS: 70450; 80048; 85025; 85610; 93005; 99283

== ENCOUNTER → 2021-01-16 15:47 | Outpatient (CLI) | payer MEDICARE, MEDICAID, SELFPAY ==
--- NOTE | 2021-01-16 15:50 | MR_ITS ---
PROCEDURE: MR ANGIO HEAD WO CON CLINICAL INDICATION: BASILAR TIP ANEURYSM COMPARISON: No exams were available for comparison TECHNIQUE: 3D [id number] images are obtained with multi slab reformats. FINDINGS: There is tortuosity with minimal ectasia of the basilar artery. There is no evidence of basilar tip aneurysm. The abnormality noted on the CT scan represents some tortuosity of the left posterior cerebral artery.. There is a small focal area of protrusion involving the posterior aspect of the suprasellar portion of the right internal carotid artery. This measures approximately 2.5 mm in with at its base and 2 mm in AP dimension. 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 This is best demonstrated on the left the right C0 W MIP images. No other significant anomalies are evident. No AVM or major intracranial occlusive process. IMPRESSION: 1. No evidence of basilar tip aneurysm. 2. Small outpouching along the posterior aspect of the suprasellar portion of the right internal carotid artery consistent with a small infundibulum of the PICA. Suggest 6 month follow-up to confirm short term stability. A small aneurysm would be included in the differential diagnosis. Dictated by: Shayne Zhao MD 01/17/2021 07:33 Shayne Zhao MD in [facility] 01/17/2021 07:33
== END ==
PROVIDERS: Visit Provider Emergency Medicine
DX: S09.90XA Unspecified injury of head, initial encounter (principal); W19.XXXA Unspecified fall, initial encounter
CPT/HCPCS: 70544

== ENCOUNTER → 2021-03-07 16:01 | Outpatient (CLI) | payer MEDICARE, MEDICAID, SELFPAY ==
[2021-03-07 16:11] LABS: Adenovirus,PCR Not Detected (NotDetected); Bordetella Pertussis Not Detected (NotDetected); Chlamydophila Pneumoniae, PCR Not Detected (NotDetected); Coronavirus 19, PCR Not Detected (NotDetected); Coronavirus 229E Not Detected (NotDetected); Coronavirus NL63 Not Detected (NotDetected); Coronavirus OC43 Not Detected (NotDetected); Coronovirus HKU1,PCR Not Detected (NotDetected); Human Metapneumovirus Not Detected (NotDetected); Influenza A, PCR Not Detected (NotDetected); Influenza AH1, 2009 Not Detected (NotDetected); Influenza AH1, PCR Not Detected (NotDetected); Influenza AH3,PCR Not Detected (NotDetected); Influenza B, PCR Not Detected (NotDetected); Mycoplasma Pneumoniae, PCR Not Detected (NotDetected); Parainfluenza 1, PCR Not Detected (NotDetected); Parainfluenza 2, PCR Not Detected (NotDetected); Parainfluenza 3, PCR Not Detected (NotDetected); Parainfluenza 4, PCR Not Detected (NotDetected); Respiratory Syncytial Virus Not Detected (NotDetected); Rhinovirus/Enterovirus Not Detected (NotDetected)
== END ==
PROVIDERS: Visit Provider Emergency Medicine
DX: Z20.822 Contact with and (suspected) exposure to COVID-19 (principal)
CPT/HCPCS: 87581; 87632; 87798; C9803; U0003; U0005

== ENCOUNTER → 2021-03-29 13:38 | Outpatient (CLI) | payer MEDICARE, MEDICAID, SELFPAY ==
[2021-03-29 13:45] LABS: Adenovirus,PCR Not Detected (NotDetected); Bordetella Pertussis Not Detected (NotDetected); Chlamydophila Pneumoniae, PCR Not Detected (NotDetected); Coronavirus 229E Not Detected (NotDetected); Coronavirus NL63 Not Detected (NotDetected); Coronavirus OC43 Not Detected (NotDetected); Coronovirus HKU1,PCR Not Detected (NotDetected); Human Metapneumovirus Not Detected (NotDetected); Influenza A, PCR Not Detected (NotDetected); Influenza AH1, 2009 Not Detected (NotDetected); Influenza AH1, PCR Not Detected (NotDetected); Influenza AH3,PCR Not Detected (NotDetected); Influenza B, PCR Not Detected (NotDetected); Mycoplasma Pneumoniae, PCR Not Detected (NotDetected); Parainfluenza 1, PCR Not Detected (NotDetected); Parainfluenza 2, PCR Not Detected (NotDetected); Parainfluenza 3, PCR Not Detected (NotDetected); Respiratory Syncytial Virus Not Detected (NotDetected); Rhinovirus/Enterovirus Not Detected (NotDetected)
[2021-03-29 19:18] LABS: Parainfluenza 4, PCR Detected (NotDetected)
== END ==
PROVIDERS: Visit Provider Emergency Medicine
DX: R55 Syncope and collapse (principal); R53.1 Weakness; B34.8 Other viral infections of unspecified site; R05.9 Cough, unspecified
CPT/HCPCS: 87486; 87581; 87632; 87798

== ENCOUNTER 2021-03-30 09:29 | Observation (INO) | payer MEDICARE, MEDICAID, SELFPAY ==
[2021-03-30] VITALS (12 sets, daily range): BP systolic 80–170; BP diastolic 48–100; PULSE 66–85; RESP 16–24; TEMP 36.7–37.6; O2SAT 92–99; BMI 30.1; BMI 32.3
--- NOTE | 2021-03-30 09:36 | PC.NURSE ---
09:36; MD at bedside.
--- NOTE | 2021-03-30 09:40 | HMH.EDGENADL ---
ED Disposition Clinical Impression: Community acquired pneumonia Disposition: Admitted as Observation Condition on Discharge: Fair - Critical Care Critical Care Time: No Attestation: On 03/30/21, the high probability of a clinically significant, sudden or life threatening deterioration of the following system(s) required my full and direct attention, intervention and personal management. The time I documented below is in addition to time spent performing reported procedures but includes the following listed in this critical care notation. Medical Decision Making - Paramjit Inquiry Pt receiving controlled substance: No Vital Signs: 03/30/21 09:29 03/30/21 10:45 03/30/21 11:00 Temperature 98.3 F Temperature Source Oral Pulse Rate 76 83 Pulse Rate [Right] 81 Respiratory Rate 18 24 20 Blood Pressure 90/48 L 80/56 L Blood Pressure [Right Arm] 170/100 H Blood Pressure Mean 63 Blood Pressure Mean [Right Arm] 123 Blood Pressure Source Blood Pressure Source [Right Arm] Automatic Cuff Blood Pressure Position Blood Pressure Position [Right Arm] Sitting 02 Sat by Pulse Oximetry 97 97 96 Oxygen Delivery Method Room Air 03/30/21 11:30 03/30/21 12:00 03/30/21 12:31 Temperature Temperature Source Pulse Rate 66 80 74 Pulse Rate [Right] Respiratory Rate 16 16 20 Blood Pressure 86/58 L 100/51 L 85/50 L Blood Pressure [Right Arm] Blood Pressure Mean 65 57 58 Blood Pressure Mean [Right Arm] Blood Pressure Source Blood Pressure Source [Right Arm] Blood Pressure Position Blood Pressure Position [Right Arm] 02 Sat by Pulse Oximetry 97 99 98 Oxygen Delivery Method 03/30/21 13:00 03/30/21 13:30 03/30/21 14:41 Temperature 99.6 F Temperature Source Oral Pulse Rate 85 80 Pulse Rate [Right] 85 Respiratory Rate 20 16 21 Blood Pressure 99/71 L 99/61 L Blood Pressure [Right Arm] 99/62 L Blood Pressure Mean 80 70 Blood Pressure Mean [Right Arm] 74 Blood Pressure Source Blood Pressure Source [Right Arm] Automatic Cuff Blood Pressure Position Blood Pressure Position [Right Arm] Supine 02 Sat by Pulse Oximetry 96 92 L Oxygen Delivery Method Room Air 03/30/21 14:43 Temperature 98.3 F Temperature Source Oral Pulse Rate 80 Pulse Rate [Right] Respiratory Rate 16 Blood Pressure 99/60 L Blood Pressure [Right Arm] Blood Pressure Mean Blood Pressure Mean [Right Arm] Blood Pressure Source Automatic Cuff Blood Pressure Source [Right Arm] Blood Pressure Position Sitting Blood Pressure Position [Right Arm] 02 Sat by Pulse Oximetry Oxygen Delivery Method Room Air - Lab Data Lab Results 03/30/21 09:32: Sodium 142, Potassium 3.8, Chloride 106, Carbon Dioxide 25, Anion Gap 14.8, BUN 27 H, Creatinine 1.90 H, Estimated Creat Clear 34, Estimated GFR 26 L, Est GFR ( Amer) 31 L, Glucose 217 H, Calcium 8.1 L, Total Bilirubin 0.2, AST 28, ALT 17, Alkaline Phosphatase 96, Troponin I < 0.01, Total Protein 6.0 L, Albumin 3.4 L, Globulin 2.6, Albumin/Globulin Ratio 1.3 03/30/21 09:32: WBC 9.3, RBC 3.99 L, Hgb 11.6 L, Hct 37.4, MCV 93.8, MCH 29.2, MCHC 31.1 L, RDW 14.4, Plt Count 239, MPV 8.2, Neut % (Auto) 56.4, Lymph % (Auto) 34.9, [place] % (Auto) 4.0, Eos % (Auto) 4.1, Baso % (Auto) 0.7, Neut # (Auto) 5.3, Lymph # (Auto) 3.3, [place] # (Auto) 0.4, Eos # (Auto) 0.4, Baso # (Auto) 0.1 03/30/21 09:32: Lipase 43 03/30/21 09:32: SARS-CoV-2 (PCR) Not detected, Influenza A Untype (PCR) Not detected, Influenza Type B (PCR) Not detected 03/30/21 09:32: Magnesium 1.8 Result diagrams: 03/30/21 09:32 03/30/21 09:32 Orders (Tests/Meds): ED MEDICATIONS Generic Name Dose Route Start Last Admin Trade Name Freq PRN Reason Stop Dose Admin Acetaminophen 650 mg 03/30/21 15:03 Acetaminophen 325mg Tab PO 04/29/21 14:24 Q4HP PRN Fever or Mild Pain Docusate Sodium 100 mg 03/31/21 09:00 Docusate Sodium 100 Mg Capsule PO 04/29/21 14:29
--- NOTE | 2021-03-30 09:46 | CT_ITS ---
PROCEDURE INFORMATION: Exam: CT Head Without Contrast Exam date and time: 03/30/2021 9:46 AM Age: 75 years old Clinical indication: Syncope and collapse TECHNIQUE: Imaging protocol: Computed tomography of the head without contrast. Radiation optimization: All CT scans at this facility use at least one of these dose optimization techniques: automated exposure control; mA and/or kV adjustment per patient size (includes targeted exams where dose is matched to clinical indication); or iterative reconstruction. COMPARISON: CT HEAD/BRAIN WO CON 01/07/2021 1:36 PM FINDINGS: Brain: There are low-attenuation foci in the periventricular and subcortical white matter of both hemispheres. This is a nonspecific finding which likely represents microangiopathic change in a patient of this age. There are chronic infarcts with encephalomalacia in the left frontal lobe and right parietal lobe. There are chronic lacunar infarcts in the basal ganglia bilaterally. There is no evidence of acute territorial infarction, hemorrhage, mass, mass effect, or midline shift. There are no abnormal intra-axial or extra-axial fluid collections. Cerebral ventricles: The sulci, cisterns, and ventricles are prominent, consistent with diffuse volume loss. Paranasal sinuses: There is mucosal thickening and fluid levels in both maxillary sinuses. There is fluid in the sphenoid sinus on the right, and multiple ethmoid air cells. There is fluid in both frontal recesses. Mastoid air cells: Visualized mastoid air cells are well aerated. Bones/joints: Unremarkable. No acute fracture. Soft tissues: Unremarkable. IMPRESSION: 1. No evidence of acute intracranial abnormality. 2. Chronic infarcts with encephalomalacia in the left frontal and right parietal lobes. 3. Chronic lacunar infarcts in the basal ganglia bilaterally. 4. Non-specific white matter change and volume loss as described. 5. Paranasal sinus opacification with air-fluid levels as described. Clinical correlation for acute on chronic sinusitis is recommended. 6. If there is strong clinical concern for acute intracranial abnormality, then an MRI examination of the brain should be considered for further evaluation. However, if there are no deficits on neurological exam, then follow-up imaging could be considered on a nonemergent outpatient basis as clinically warranted.
--- NOTE | 2021-03-30 09:46 | XR_ITS ---
PROCEDURE INFORMATION: Exam: XR Chest Exam date and time: 03/30/2021 9:46 AM Age: 75 years old Clinical indication: Shortness of breath; Additional info: Increased cough, hypoxia TECHNIQUE: Imaging protocol: XR of the chest. Views: 1 view. COMPARISON: CR CXR2 XR chest AP 07/13/2017 9:51 PM FINDINGS: Lungs: Hypoinflation with interstitial prominence , chronic granulomatous disease, and trace basilar airspace disease. Pleural spaces: No pleural effusion. Heart/Mediastinum: No cardiomegaly. Bones/joints: Degenerative change. IMPRESSION: Hypoinflation with interstitial prominence , chronic granulomatous disease, and trace basilar airspace disease.
--- NOTE | 2021-03-30 10:29 | ECG_ITS ---
APPROVED REPORT Exam: Resting ECG HR:84 bpm ECG Measurements Heart Rate 84 AXES VA 168 P 17 QRSd 87 QRS 31 QT 396 T 68 QTc 437 Conclusion SINUS RHYTHM WITH FREQUENT VENTRICULAR PREMATURE COMPLEXEs ISOLATED Q IN III Electronically signed by : Trent Buchanan MD 03/31/2021 14:06:21
[2021-03-30 10:46] LABS: Coronavirus 19, PCR Not Detected (NotDetected); Influenza A, PCR Not Detected (NotDetected); Influenza B, PCR Not Detected (NotDetected)
[2021-03-30 10:48] LABS: Basophils # 0.1 K/mm3 (0-0.2); Basophils % 0.7 % (0.1-2.0); Eosinophils # 0.4 K/mm3 (0.0-0.4); Eosinophils % 4.1 % (0.1-12.0); Hematocrit 37.4 % (37.0-47.0); Hemoglobin 11.6 g/dL (12.2-16.2); Lymphocytes # 3.3 K/mm3 (0.7-4.5); Lymphocytes % 34.9 % (10-50); Mean Corpuscular HGB Conc 31.1 g/dL (31.8-35.4); Mean Corpuscular Hemoglobin 29.2 pg (27.0-31.2); Mean Corpuscular Volume 93.8 fl (81-99); Mean Platelet Volume 8.2 fl (7.4-10.4); Monocytes # 0.4 K/mm3 (0.1-1.0); Neutrophils # 5.3 K/mm3 (1.8-7.8); Neutrophils % 56.4 % (37.0-80.0); Platelet Count 239 K/mm3 (142-424); Red Blood Count 3.99 M/mm3 (4.20-5.40); Red Cell Distribution Width 14.4 % (11.5-17.5); White Blood Count 9.3 K/mm3 (4.8-10.8)
[2021-03-30 10:54] LABS: Chloride 106 mmol/L (98-107); Potassium 3.8 mmoL/L (3.5-5.1); Sodium 142 mmol/L (136-145)
[2021-03-30 10:56] LABS: Lipase 43 U/L (23-300)
[2021-03-30 10:57] LABS: Alanine Aminotransferase 17 U/L (12-78); Albumin Level 3.4 g/dl (3.5-5.0); Albumin/Globulin Ratio 1.3 (1.1-1.8); Alkaline Phosphatase 96 U/L (38-126); Anion Gap 14.8 mEq/L (5-15); Aspartate Amino Transferase 28 U/L (14-36); Bilirubin,Total 0.2 mg/dl (0.2-1.3); Blood Urea Nitrogen 27 mg/dl (7-17); Carbon Dioxide 25 mmol/L (22.0-30.0); Creatinine Clearance Estimated 34 mL/min (50-200); Estimated Glomerular Filt Rate 26 ml/min (>60); GFR (African American) 31 ML/MIN (>60); Globulin 2.6 g/dL (1.3-3.2)
[2021-03-30 10:58] LABS: Calcium 8.1 mg/dl (8.4-10.2); Glucose 217 mg/dl (74-100)
--- NOTE | 2021-03-30 11:08 | PC.NURSE ---
11:09; Patient in CT
[2021-03-30 11:12] LABS: Troponin I < 0.01 ng/ml (0.00-0.034)
--- NOTE | 2021-03-30 11:19 | HMH.ITSTN ---
GFR on blood work was 26-- unable to give contrast-- brain/head CT without was done
[2021-03-30 11:28] LABS: Magnesium 1.8 mg/dl (1.6-2.3)
--- NOTE | 2021-03-30 11:36 | PC.NURSE ---
11:36; Patient on bedpan
--- NOTE | 2021-03-30 11:45 | PC.NURSE ---
11:45; patient is off the bedpan, she was unable to urinate.
--- NOTE | 2021-03-30 12:15 | PC.NURSE ---
12:15; Patient is resting comfortably at this time.
--- NOTE | 2021-03-30 14:02 | PC.NURSE ---
Report given to STEPHANIE Beltre at this time
--- NOTE | 2021-03-30 15:20 | HMH.HP ---
*Admission Date: 03/30/21 *Chief complaint: weakness *History of present illness: 75 yo female presents via ems from [facility] for weakness. Patient reports she was in shower this morning and got lightheaded which she describes as unsteady and then lost consciousness, was lowered slowly to ground by staff. per EMS noted o2 sat 88% on RA, improved on NC. pt states she has been feeling more weak than usual over last few days with increased nasal congestion,n/v and cough.Tested positive for parainfluenza virus yesterday at care home. Pt has w/ hx HTN, HLD, CVA, MDD, DM. Pt admitted for further work up, labs show THERESA, with creatinine 1.9. BUN/Cr ratio>20. CXR with right lower opacity. Will cover pneumonia with antibiotics [facility] History I have reviewed the patient's past medical history: Yes Medical History: Reports:: Anxiety, Cerebrovascular Accident, Dementia, Depression, Diabetes Mellitus Type 2, Hyperlipidemia, Hypertension Denies:: Cancer, Diabetes Mellitus Type 1, Internal Pacemaker, MRSA, Seizures *Have you ever received a pneumonia vaccine?: Yes *Have you received a flu vaccine this season?: Yes Other Medical History: Reports: Cataracts, Hypothyroidism, Thyroid Disease Other Surgeries: Yes: No Previous Surgery. No: Pacemaker Amputation: No Fractures: No - *Social History Smoking Status: Never smoker Alcohol Intake: never *Occupational Status:: unemployed Housing: assisted living facility Household Members: caregiver *Travel in the last 8 weeks: None - Psychiatric History Pschychiatric History:: Reports:: Anxiety, Depression Family Hx:: No significant family history Review of Systems - Review of Systems Review of systems:: pertinent systems reviewed and negative unless documented below - Constitutional Reports body ache(s), Reports fatigue, Reports malaise, Denies fever(s) - Eyes Denies change in vision - ENT Denies dizziness - *Cardiovascular Denies chest pain at rest - *Respiratory Reports chest congestion, Reports cough, Denies shortness of breath - *Gastrointestinal Reports nausea, Reports vomiting, Denies abdominal pain - *Genitourinary Denies urinary urgency - *Musculoskeletal Denies joint pain - Integumentary/Breasts Denies rash - *Neurologic Reports fainting - Psychiatric Denies lack of enjoyment - Endocrine Denies excessive sweating - Hematologic/Lymphatic Denies easy bruising - Allergic/Immunologic Denies GI upset with certain foods Meds Home Medications Medication Instructions Recorded Confirmed Type acetaminophen 500 mg tablet 1,000 mg PO Q6H PRN 05/01/17 06/11/20 History aspirin 81 mg chewable tablet 81 mg PO DAILY tab 05/01/17 06/11/20 History atorvastatin 40 mg tablet 40 mg PO DAILY tab 05/01/17 06/11/20 History bisacodyl 10 mg rectal suppository 10 mg [place] .every 3 days each 05/01/17 06/11/20 History clopidogrel 75 mg tablet 75 mg PO DAILY tab 05/01/17 06/11/20 History donepezil 10 mg tablet 10 mg PO QHS 05/01/17 06/11/20 History glipizide 5 mg tablet 2.5 mg PO BID tab 05/01/17 06/11/20 History guaifenesin 100 mg/5 mL oral liquid 200 mg PO ONCE PRN 05/01/17 06/11/20 History hydrochlorothiazide 25 mg tablet 25 mg PO DAILY tab 05/01/17 06/11/20 History lactulose 10 gram/15 mL oral 30 ml PO QHS PRN 05/01/17 06/11/20 History solution levothyroxine 75 mcg capsule 75 mcg PO DAILY cap 05/01/17 06/11/20 History lisinopril 40 mg tablet 40 mg PO DAILY tab 05/01/17 06/11/20 History loperamide 2 mg capsule 2 mg PO Q4H PRN 05/01/17 06/11/20 History memantine 10 mg tablet 10 mg PO BID 05/01/17 06/11/20 History metformin 500 mg tablet 500 mg PO BID 05/01/17 06/11/20 History mirtazapine 15 mg tablet 15 mg PO QHS 05/01/17 06/11/20 History risperidone 0.5 mg tablet 0.5 mg PO DAILY tab 05/01/17 06/11/20 History sennosides 8.6 mg tablet 8.6 mg PO DAILY tab 05/01/17 06/11/20 History solifenacin 5 mg tablet 5 mg PO DAILY tab 05/01/17 06/11/20 History venlafaxine 150 m
--- NOTE | 2021-03-30 19:18 | PC.NURSE ---
Pt. has rested peacefully since arriving to the floor from the ED. Vitals have been stable, pt. with no complaints at this time. Report given to Sabrina Rosa RN
[2021-03-31 04:00] VITALS: BP 110/59; PULSE 84; RESP 16; TEMP 36.9; O2SAT 93
[2021-03-31 06:00] VITALS: BMI 33.8
[2021-03-31 07:30] LABS: Basophils # 0.1 K/mm3 (0-0.2); Eosinophils # 0.4 K/mm3 (0.0-0.4); Eosinophils % 4.9 % (0.1-12.0); Hematocrit 34.9 % (37.0-47.0); Lymphocytes # 3.2 K/mm3 (0.7-4.5); Lymphocytes % 40.1 % (10-50); Mean Corpuscular HGB Conc 31.4 g/dL (31.8-35.4); Mean Corpuscular Hemoglobin 29.2 pg (27.0-31.2); Mean Corpuscular Volume 93.1 fl (81-99); Mean Platelet Volume 8.3 fl (7.4-10.4); Monocytes # 0.4 K/mm3 (0.1-1.0); Monocytes % 4.8 % (1.7-9.3); Neutrophils # 3.9 K/mm3 (1.8-7.8); Neutrophils % 49.2 % (37.0-80.0); Platelet Count 201 K/mm3 (142-424); Red Blood Count 3.75 M/mm3 (4.20-5.40); Red Cell Distribution Width 14.3 % (11.5-17.5); White Blood Count 7.9 K/mm3 (4.8-10.8)
[2021-03-31 07:45] LABS: Anion Gap 13.1 mEq/L (5-15); Blood Urea Nitrogen 31 mg/dl (7-17); Calcium 8.4 mg/dl (8.4-10.2); Carbon Dioxide 27 mmol/L (22.0-30.0); Chloride 106 mmol/L (98-107); Creatinine Clearance Estimated 34 mL/min (50-200); Estimated Glomerular Filt Rate 24 ml/min (>60); GFR (African American) 30 ML/MIN (>60); Glucose 106 mg/dl (74-100); Potassium 5.1 mmoL/L (3.5-5.1); Sodium 141 mmol/L (136-145)
[2021-03-31 08:00] VITALS: BP 99/63; PULSE 79; RESP 18; TEMP 36.8; O2SAT 95
--- NOTE | 2021-03-31 09:07 | HMH.ACPN2 ---
Internal Medicine - PN: Subj *Date: 03/31/21 *Time: 09:07 Interval history: cough and sob with abn cxr from e[facility] Exam Vital signs and Labs for Last 24 Hours: Temp Pulse Resp BP Pulse Ox 98.5 F 84 16 110/59 L 93 L 03/31/21 04:00 03/31/21 04:00 03/31/21 04:00 03/31/21 04:00 03/31/21 04:00 Laboratory Results - last 24 hr 03/30/21 09:32: Sodium 142, Potassium 3.8, Chloride 106, Carbon Dioxide 25, Anion Gap 14.8, BUN 27 H, Creatinine 1.90 H, Estimated Creat Clear 34, Estimated GFR 26 L, Est GFR ( Amer) 31 L, Glucose 217 H, Calcium 8.1 L, Total Bilirubin 0.2, AST 28, ALT 17, Alkaline Phosphatase 96, Troponin I < 0.01, Total Protein 6.0 L, Albumin 3.4 L, Globulin 2.6, Albumin/Globulin Ratio 1.3 03/30/21 09:32: WBC 9.3, RBC 3.99 L, Hgb 11.6 L, Hct 37.4, MCV 93.8, MCH 29.2, MCHC 31.1 L, RDW 14.4, Plt Count 239, MPV 8.2, Neut % (Auto) 56.4, Lymph % (Auto) 34.9, [place] % (Auto) 4.0, Eos % (Auto) 4.1, Baso % (Auto) 0.7, Neut # (Auto) 5.3, Lymph # (Auto) 3.3, [place] # (Auto) 0.4, Eos # (Auto) 0.4, Baso # (Auto) 0.1 03/30/21 09:32: Lipase 43 03/30/21 09:32: SARS-CoV-2 (PCR) Not detected, Influenza A Untype (PCR) Not detected, Influenza Type B (PCR) Not detected 03/30/21 09:32: Magnesium 1.8 03/31/21 06:50: WBC 7.9, RBC 3.75 L, Hgb 11.0 L, Hct 34.9 L, MCV 93.1, MCH 29.2, MCHC 31.4 L, RDW 14.3, Plt Count 201, MPV 8.3, Neut % (Auto) 49.2, Lymph % (Auto) 40.1, [place] % (Auto) 4.8, Eos % (Auto) 4.9, Baso % (Auto) 1.0, Neut # (Auto) 3.9, Lymph # (Auto) 3.2, [place] # (Auto) 0.4, Eos # (Auto) 0.4, Baso # (Auto) 0.1 03/31/21 06:50: Sodium 141, Potassium 5.1 D, Chloride 106, Carbon Dioxide 27, Anion Gap 13.1, BUN 31 H, Creatinine 2.00 H, Estimated Creat Clear 34, Estimated GFR 24 L, Est GFR ( Amer) 30 L, Glucose 106 H D, Calcium 8.4 I & O for Last 24 hours: Intake & Output 03/28/21 03/29/21 03/30/21 03/31/21 11:59 11:59 11:59 11:59 Intake Total 360 / 360 Output Total 0 / 0 Balance 360 / 360 Weight 181 lb 191 lb 3.2 oz - Constitutional no acute distress, obese - *Routine HEENT Exam Head: Present: normocephalic Eye: Present: EOMI, PERRL ENT: Present: mucous membranes dry - *Routine Neck Exam Absent: JVD - *Routine Respiratory Exam Present: decreased breath sounds - *Routine Cardiovascular Exam Present: RRR - *Routine Abdominal Exam Present: soft - *Routine Extremities Exam Absent: calf tenderness - *Routine Skin Exam Present: intact - *Routine Neurological Exam Present: alert, oriented X3, CN II-XII intact - Routine Psychiatric Exam Present: normal affect Assessment and Plan (1) Acute kidney injury Status: Acute Category: Medical Code(s): N17.9 - Acute kidney failure, unspecified (2) Fall Status: Acute Qualifiers: Encounter type: initial encounter Qualified Code(s): W19.XXXA - Unspecified fall, initial encounter Category: Medical Code(s): W19.XXXA - Unspecified fall, initial encounter (3) Pre-syncope Status: Acute Category: Medical Code(s): R55 - Syncope and collapse (4) Essential (primary) hypertension Status: Chronic Category: Medical Code(s): I10 - Essential (primary) hypertension (5) Hyperlipidemia, unspecified Status: Chronic Qualifiers: Hyperlipidemia type: other hyperlipidemia Category: Medical Code(s): E78.5 - Hyperlipidemia, unspecified (6) Hypothyroidism, unspecified Status: Chronic Qualifiers: Hypothyroidism type: other Qualified Code(s): E03.8 - Other specified hypothyroidism Category: Medical Code(s): E03.9 - Hypothyroidism, unspecified (7) Major depressive disorder, recurrent, unspecified Status: Chronic Category: Medical Code(s): F33.9 - Major depressive disorder, recurrent, unspecified (8) Type 2 diabetes mellitus without complications Status: Chronic Qualifiers: Diabetes mellitus rn documentation insulin use: unspecified rn documentation insulin use status Qualified Code(s): E11.9 - Typ
[2021-03-31 10:24] VITALS: BMI 33.8
[2021-03-31 13:58] VITALS: PULSE 65; PULSE 67; PULSE 69; RESP 18; O2SAT 96
--- NOTE | 2021-03-31 13:58 | PC.NURSE ---
Sputum induced, pt has nonproductive cough. Specimen cup left at bedside.
--- NOTE | 2021-03-31 14:25 | P.CONPHA_ITS ---
[facility] Pharmacy VTE Monitoring - Patient Demographics Admission date: 03/30/21 Report Date: 03/31/21 Time: 14:25 Allergies/Adverse Reactions: Patient Allergies diphenhydramine [From BENADRYL] Allergy (Unknown, Verified 06/11/20 09:43) Height: 1.6 m Weight: 86.7 kg Patient Problems: Current Active Problems Pre-syncope (Acute) Fall (Acute) Community acquired pneumonia (Acute) Acute kidney injury (Acute) Obesity (BMI 30-39.9) (Acute) HCAP (healthcare-associated pneumonia) (Acute) Essential (primary) hypertension (Chronic) Major depressive disorder, recurrent, unspecified (Chronic) Hyperlipidemia, unspecified (Chronic) Type 2 diabetes mellitus without complications (Chronic) Hypothyroidism, unspecified (Chronic) Vascular dementia with behavioral disturbance (Chronic) - VTE Risk Labs: VTE Related Lab Results Hgb 11.0 g/dL (12.2-16.2) L 03/31/21 06:50 Hct 34.9 % (37.0-47.0) L 03/31/21 06:50 Plt Count 201 K/mm3 (142-424) 03/31/21 06:50 BUN 31 mg/dl (7-17) H 03/31/21 06:50 Creatinine 2.00 mg/dl (0.52-1.04) H 03/31/21 06:50 Estimated Creat Clear 34 mL/min (50-200) 03/31/21 06:50 VTE Score: 3 VTE Risk Level: Low Risk - Prophylaxis VTE Prophylaxis Ordered?: Yes Types of VTE Prophylaxis: TEDS Knee High Location of Applied Device: Bilateral Lower Extremeties
[2021-03-31 16:00] VITALS: BP 155/59; PULSE 81; RESP 28; TEMP 36.7; O2SAT 94
--- NOTE | 2021-03-31 16:08 | HMH.PHAINT ---
MEDICATION RECONCILIATION COMPLETED ON PATIENT USING MAR FROM [facility]. -FREDIS NARVAEZ, DICKD
[2021-03-31 20:00] VITALS: BP 105/55; PULSE 87; RESP 20; TEMP 36.6; O2SAT 95
[2021-03-31 20:41] VITALS: PULSE 61; PULSE 66
[2021-04-01] VITALS (10 sets, daily range): BP systolic 108–147; BP diastolic 55–89; PULSE 48–115; RESP 16–18; TEMP 36.6–37.1; O2SAT 91–98; BMI 33.0
[2021-04-01 07:16] LABS: Basophils % 0.2 % (0.1-2.0); Hematocrit 36.7 % (37.0-47.0); Hemoglobin 11.4 g/dL (12.2-16.2); Lymphocytes # 3.5 K/mm3 (0.7-4.5); Lymphocytes % 29.2 % (10-50); Mean Corpuscular HGB Conc 31.1 g/dL (31.8-35.4); Mean Corpuscular Volume 93.3 fl (81-99); Monocytes # 0.1 K/mm3 (0.1-1.0); Monocytes % 0.9 % (1.7-9.3); Neutrophils # 8.3 K/mm3 (1.8-7.8); Neutrophils % 69.7 % (37.0-80.0); Platelet Count 240 K/mm3 (142-424); Red Blood Count 3.94 M/mm3 (4.20-5.40); Red Cell Distribution Width 14.1 % (11.5-17.5); White Blood Count 11.9 K/mm3 (4.8-10.8)
[2021-04-01 07:32] LABS: Anion Gap 16.2 mEq/L (5-15); Blood Urea Nitrogen 43 mg/dl (7-17); Calcium 8.6 mg/dl (8.4-10.2); Carbon Dioxide 21 mmol/L (22.0-30.0); Chloride 108 mmol/L (98-107); Creatinine Clearance Estimated 37 mL/min (50-200); Estimated Glomerular Filt Rate 28 ml/min (>60); GFR (African American) 33 ML/MIN (>60); Glucose 186 mg/dl (74-100); Potassium 5.2 mmoL/L (3.5-5.1); Sodium 140 mmol/L (136-145)
--- NOTE | 2021-04-01 08:11 | SW/DCPLANNER ---
Addendum entered by Kiersten Mueller 04/03/21 10:39: [facility] lee/ [facility] stated they will transport this patient. Addendum entered by Kiersten Mueller 04/03/21 09:33: The plan is for this patient to discharge back to [facility] under I[facility] level of care. No COVID swab is needed prior to discharge. Addendum entered by Kiersten Mueller 04/02/21 10:04: Updated patient information has been faxed to [facility]athi lee/ [facility]. Patient will not require a COVID swab prior to returning. Discharge date is unknown at this time. Original Note: This patient currently resides at [facility]. Per [facility] care. I will continue to follow up with Malathi until patient is medically stable for discharge.
--- NOTE | 2021-04-01 08:12 | CA_ITS ---
APPROVED REPORT EXAM: Comprehensive 2D, Doppler, and color-flow Echocardiogram Group President: Nayana Felder RT(R) Ht: 5 ft 2 in Wt: 186lbs BSA: 1.85 BP: 147/84 mmHg Indications: THERESA, bradycardia, HTN, DM, hyperlipidemia, hx CVA, pre syncope M-Mode Dimensions RVDd 2.85 cm (0.9-2.6) LA Diam 2.94 cm (1.9-4.0) LVDd 5.60 cm (3.5-5.7) Ao Diam 3.48 cm (2.0-3.7) LVDs 4.28 cm (3.5-5.7) IVSd 0.89 cm (0.6-1.1) PWd 0.64 cm (0.6-1.1) EF (Teich) 46.50% FS 23.60% EDV (Teich) 153.70 mL ESV (Teich) 82.20 mL LV Diastology E Decel Time 220.00 (160-240 msec) E/A Ratio 0.9 MED E' 8.80 (< 7 cm/sec) E'/MED E' Ratio 11.67 (>14) LAT E' 10.20 (<10 cm/sec) E/LAT E' Ratio 10.07 (>14) Mitral Valve MV E Max Bakari. 103.00 (40-130 cm/s) MV A Velocity 115.00 (40-130 cm/s) E/A Ratio 0.89 MV Decel. Time 220.00 (160-240 ms) MV PHT 64.00 ms Left Ventricle Left atrium is mildly enlarged, left ventricle is normal size, mild concentric left ventricular hypertrophy, visually estimated ejection fraction 55% with no regional wall motion abnormality, grade 1 diastolic dysfunction seen without tissue Doppler evidence of raise left atrial pressure. Right Ventricle Right atrium and right ventricle are mildly enlarged with normal contractility. Aortic Valve Aortic valve is minimally thickened and fibrosed, there is no aortic stenosis or aortic insufficiency. Mitral Valve Mitral valve grossly normal, there is trace mitral regurgitation. Tricuspid Valve Tricuspid grossly normal, there is trace tricuspid regurgitation, tricuspid regurgitation jet velocity is inadequate for calculation of the right ventricular systolic pressure. Pulmonic Valve Pulmonic valve is poorly visualized. Great Vessels Aortic root is normal size. Inferior vena cava is poorly visualized. Pericardium No significant pericardial effusion noted. Conclusion 1. Mild biatrial enlargement, normal left ventricular size, mild concentric left ventricular hypertrophy, visually estimated ejection fraction 55% with no regional wall motion abnormality, grade 1 diastolic dysfunction seen without tissue Doppler evidence of raise left atrial pressure. 2. Mildly enlarged right ventricle with normal contractility. 3. Trace mitral and tricuspid regurgitation. 4. No significant pericardial effusion noted. 5. Inferior vena cava is poorly visualized. Electronically signed by : George Jimenez MD 04/01/2021 17:19:54
[2021-04-01 08:26] LABS: Creatine Kinase 48 U/L (30-135)
[2021-04-01 08:36] LABS: CKMB Relative Index 1.7 U/L (0-4.0); Creatine Kinase MB 0.8 ng/ml (0.0-2.03)
[2021-04-01 08:44] LABS: Troponin I < 0.01 ng/ml (0.00-0.034)
--- NOTE | 2021-04-01 09:31 | HMH.ACPN2 ---
Internal Medicine - PN: Subj *Date: 04/01/21 *Time: 08:10 Interval history: pt states anxious this am, states she was woke up and was startled, pt coughing states she will be ok once she calms down Exam Vital signs and Labs for Last 24 Hours: Temp Pulse Resp BP Pulse Ox 98.1 F 115 H 18 140/89 95 04/01/21 08:00 04/01/21 08:00 04/01/21 08:00 04/01/21 08:00 04/01/21 08:00 Laboratory Results - last 24 hr 04/01/21 06:19: WBC 11.9 H D, RBC 3.94 L, Hgb 11.4 L, Hct 36.7 L, MCV 93.3, MCH 29.0, MCHC 31.1 L, RDW 14.1, Plt Count 240, MPV 8.0, Neut % (Auto) 69.7, Lymph % (Auto) 29.2, [place] % (Auto) 0.9 L, Eos % (Auto) 0.0 L, Baso % (Auto) 0.2, Neut # (Auto) 8.3 H, Lymph # (Auto) 3.5, [place] # (Auto) 0.1, Eos # (Auto) 0.0, Baso # (Auto) 0.0 04/01/21 06:19: Sodium 140, Potassium 5.2 H, Chloride 108 H, Carbon Dioxide 21 L, Anion Gap 16.2 H, BUN 43 H D, Creatinine 1.80 H, Estimated Creat Clear 37, Estimated GFR 28 L, Est GFR ( Amer) 33 L, Glucose 186 H D, Calcium 8.6 04/01/21 06:19: Total Creatine Kinase 48, CK-MB (CK-2) 0.8, CK-MB (CK-2) Rel Index 1.7, Troponin I < 0.01 I & O for Last 24 hours: Intake & Output 03/29/21 03/30/21 03/31/21 04/01/21 11:59 11:59 11:59 11:59 Intake Total 480 / 480 600 / 600 Output Total 0 / 0 Balance 480 / 480 600 / 600 Weight 181 lb 191 lb 2.252 oz 186 lb 9.6 oz - Constitutional no acute distress, chronically ill appearing - *Routine HEENT Exam Head: Present: normocephalic Eye: Present: PERRL ENT: Present: mucous membranes moist - *Routine Neck Exam Present: supple. Absent: lymphadenopathy - *Routine Respiratory Exam Present: rhonchi - *Routine Cardiovascular Exam Present: RRR - *Routine Abdominal Exam Present: soft, normoactive bowel sounds. Absent: tenderness - *Routine Extremities Exam Absent: cyanosis, clubbing, edema - *Routine Skin Exam Present: warm. Absent: rash - *Routine Neurological Exam Present: alert, oriented X3 - Routine Psychiatric Exam Present: anxious Assessment and Plan (1) Acute kidney injury Status: Acute Category: Medical Code(s): N17.9 - Acute kidney failure, unspecified (2) Fall Status: Acute Qualifiers: Encounter type: initial encounter Qualified Code(s): W19.XXXA - Unspecified fall, initial encounter Category: Medical Code(s): W19.XXXA - Unspecified fall, initial encounter (3) Pre-syncope Status: Acute Category: Medical Code(s): R55 - Syncope and collapse (4) Essential (primary) hypertension Status: Chronic Category: Medical Code(s): I10 - Essential (primary) hypertension (5) Hyperlipidemia, unspecified Status: Chronic Qualifiers: Hyperlipidemia type: other hyperlipidemia Category: Medical Code(s): E78.5 - Hyperlipidemia, unspecified (6) Hypothyroidism, unspecified Status: Chronic Qualifiers: Hypothyroidism type: other Qualified Code(s): E03.8 - Other specified hypothyroidism Category: Medical Code(s): E03.9 - Hypothyroidism, unspecified (7) Major depressive disorder, recurrent, unspecified Status: Chronic Category: Medical Code(s): F33.9 - Major depressive disorder, recurrent, unspecified (8) Type 2 diabetes mellitus without complications Status: Chronic Qualifiers: 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
--- NOTE | 2021-04-01 10:54 | HMH.CNCARD ---
History of Present Illness Consult date: 04/01/21 Requesting physician: Zaheer Buchanan Chief complaint: weakness History of present illness: This is a 75-year-old white female who resides at [facility]. She presented to the emergency department with complaints of weakness and syncope. The patient was in the shower and got lightheaded and very unsteady. The staff had to lower her to the ground. The staff reported that the patient lost consciousness but there is no documentation about how long she lost consciousness. The patient states that she has been feeling more weak than usual. She did have some nasal congestion, nausea, vomiting and cough. She does have an upper respiratory infection with parainfluenza. She denies any chest pain or pressure. She denies any shortness of breath or edema. She denies any fever, chills, diarrhea, PND or orthopnea. Cardiology was consulted because on a pulse oximetry monitor her heart rate was 48 bpm, so cardiology was consulted for bradycardia. At the time of our evaluation the patient was tachycardic with a heart rate of 115. She was placed on a big data analytics lead and was found to be in ventricular bigeminy with a heart rate actually in the 80-90s. The patient states that she does feel fluttering of her heart intermittently but not all of the time. She states it feels as if her heart is skipping beats. [facility] History I have reviewed the patient's past medical history: Yes Medical History: Reports:: Anxiety, Cerebrovascular Accident, Dementia, Depression, Diabetes Mellitus Type 2, Hyperlipidemia, Hypertension Denies:: Cancer, Coronary Artery Disease, Diabetes Mellitus Type 1, Internal Pacemaker, MRSA, Seizures *Have you ever received a pneumonia vaccine?: No *Have you received a flu vaccine this season?: No Other Medical History: Reports: Arthritis, Cataracts, Hypothyroidism, Thyroid Disease Laterality Cases: Bilateral: Cataract Other Surgeries: Yes: No Previous Surgery. No: Pacemaker Amputation: No Fractures: No - *Social History Smoking Status: Never smoker Alcohol Intake: never *Occupational Status:: disabled Housing: skilled nursing Household Members: other *Travel in the last 8 weeks: None - Psychiatric History Pschychiatric History:: Reports:: Anxiety, Depression Family Hx:: No significant family history Meds Home Medications Medication Instructions Recorded Confirmed Type acetaminophen 500 mg tablet 1,000 mg PO Q6HP PRN 05/01/17 03/31/21 History aspirin 81 mg chewable tablet 81 mg PO DAILY tab 05/01/17 03/31/21 History bisacodyl 10 mg rectal suppository 10 mg W[place] DIRECTED PRN each 05/01/17 03/31/21 History clopidogrel 75 mg tablet 75 mg PO DAILY tab 05/01/17 03/31/21 History donepezil 10 mg tablet 10 mg PO HS 05/01/17 03/31/21 History lactulose 10 gram/15 mL oral 30 ml PO DAILYP PRN 05/01/17 03/31/21 History solution levothyroxine 75 mcg capsule 75 mcg PO DAILY cap 05/01/17 03/31/21 History loperamide 2 mg capsule 2 mg PO Q3HP PRN 05/01/17 03/31/21 History memantine 10 mg tablet 10 mg PO BID 05/01/17 03/31/21 History mirtazapine 15 mg tablet 15 mg PO HS 05/01/17 03/31/21 History sennosides 8.6 mg tablet 8.6 mg PO BID tab 05/01/17 03/31/21 History venlafaxine 150 mg 150 mg PO DAILY cap 05/01/17 03/31/21 History capsule,extended release 24 hr Acetaminophen with Codeine 1 tab PO BIDP PRN 03/31/21 03/31/21 History [Acetaminophen w/Codeine #3 Tablet] Atorvastatin Calcium [Lipitor 80mg 80 mg PO HS 03/31/21 03/31/21 History Tab] Fesoterodine Fumarate [Toviaz] 4 mg PO DAILY 03/31/21 03/31/21 History Ibuprofen 200 mg PO Q4HP PRN 03/31/21 03/31/21 History Insulin Detemir [Levemir 100 8 units SQ HS 03/31/21 03/31/21 History units/mL 10mL vial] LORazepam [Lorazepam 1mg Tablet] 0.5 mg PO 1600 03/31/21 03/31/21 History LORazepam [Lorazepam] 1 mg PO 1200,199903/31/21 03/31/21 History Linagliptin [Tradjenta 5mg tablet] 5 mg PO DAILY 03/31/21 03/31/21 History Марина
--- NOTE | 2021-04-01 11:44 | ECG_ITS ---
APPROVED REPORT Exam: Resting ECG HR:93 bpm ECG Measurements Heart Rate 93 AXES IL 191 P 11 QRSd 77 QRS 22 QT 337 T 20 QTc 388 Conclusion SINUS RHYTHM WITH FREQUENT ECTOPIC PREMATURE COMPLEXES LOW QRS VOLTAGE IN PRECORDIAL LEADS [QRS DEFLECTION < 1.0 mV IN CHEST LEADS] Old anterior changes ABNORMAL RHYTHM ECG UNCONFIRMED REPORT Electronically signed by : Trent Buchanan MD 04/01/2021 18:33:49
--- NOTE | 2021-04-01 12:48 | HMH.SLDYSPHA ---
Speech & Language Evaluation Speech/Language Dysphagia Evaluation Start: 04/01/21 12:35 Freq: ONCE Status: Active Protocol: Document 04/01/21 12:35 JAK (Rec: 04/01/21 12:48 JAK [id number]) Dysphagia Assess/Goals/Plan Assessment Date of Evaluation: 04/01/21 Evaluation Type Initial Certification Assessment/Problems Dysphagia Does Patient Qualify for Service No Qualify/Failure Comment Pt showed no overt signs of dysphagia. Diet modifications were made due to lack of dentition. Recommendations PHYSICIAN CERTIFICATION: The specified therapy services are required, authorized, and reviewed every 30 days. Diet Recommendations Chopped meats with gravy/sauce Liquid Type Recommendations Normal/Thin SL Swallow Guidelines Standard Aspiration Prec. Dysphagia Swallow Precautions/Strategies Sitting Upright (90 deg),Small Bites and Sips,Alternate Liquids/Solids Plan Pt/Guardian verbally ack understanding Yes: Rn notified of dx/prognosis/goals Pt/Guardian verbally ack understanding Yes of/consent to tx prog G -code Required No Speech & Language HPI Language Primary Language Kosovan General Information General Current Food Consistancy Regular,Thin Liquids Dentition Upper Only Oxygen Status Room Air Facial Symmetry Symmetrical Patient Orientation Person,Place,Time,Situation Ability to Follow Directions Excellent Communication Ability No Impairment Dysphagia:Food Presentation Evaluation Food Type Mechanical Soft,Regular,Liquid ,Pudding Dysphagia Evaluation Summary Pt was given the following consistencies; thins via straw and open cup, pudding, puree, mech soft, and regular. No overt signs of dysphagia at this time. Diet recommendations were made for a regular diet with chopped meats with gravy/sauce with thin liquids due to lack of dentition. Stroke Dysphagia Assessment PHYSICIAN CERTIFICATION: I certify the specified therapy services for Elizabeth David are required, authorized, and reviewed every 30 days.
[2021-04-02] VITALS (9 sets, daily range): BP systolic 100–128; BP diastolic 50–76; PULSE 55–84; RESP 18–28; TEMP 36.4–36.8; O2SAT 90–98; BMI 34.3
[2021-04-02 07:19] LABS: Basophils # 0.1 K/mm3 (0-0.2); Basophils % 0.9 % (0.1-2.0); Eosinophils # 0.1 K/mm3 (0.0-0.4); Eosinophils % 0.5 % (0.1-12.0); Hematocrit 35.7 % (37.0-47.0); Hemoglobin 10.9 g/dL (12.2-16.2); Lymphocytes # 3.3 K/mm3 (0.7-4.5); Lymphocytes % 30.1 % (10-50); Mean Corpuscular HGB Conc 30.5 g/dL (31.8-35.4); Mean Corpuscular Hemoglobin 28.5 pg (27.0-31.2); Mean Corpuscular Volume 93.3 fl (81-99); Mean Platelet Volume 7.8 fl (7.4-10.4); Monocytes # 0.2 K/mm3 (0.1-1.0); Monocytes % 2.2 % (1.7-9.3); Neutrophils # 7.3 K/mm3 (1.8-7.8); Neutrophils % 66.3 % (37.0-80.0); Platelet Count 231 K/mm3 (142-424); Red Blood Count 3.82 M/mm3 (4.20-5.40); Red Cell Distribution Width 14.5 % (11.5-17.5); White Blood Count 10.9 K/mm3 (4.8-10.8)
[2021-04-02 07:43] LABS: Anion Gap 11.6 mEq/L (5-15); Blood Urea Nitrogen 43 mg/dl (7-17); Calcium 8.6 mg/dl (8.4-10.2); Carbon Dioxide 23 mmol/L (22.0-30.0); Chloride 113 mmol/L (98-107); Creatinine Clearance Estimated 42 mL/min (50-200); Estimated Glomerular Filt Rate 32 ml/min (>60); GFR (African American) 38 ML/MIN (>60); Glucose 169 mg/dl (74-100); Potassium 4.6 mmoL/L (3.5-5.1); Sodium 143 mmol/L (136-145)
--- NOTE | 2021-04-02 09:25 | HMH.ACPN2 ---
Internal Medicine - PN: Subj *Date: 04/02/21 *Time: 09:25 Interval history: 75-year-old female patient resting quietly in bed she denies any chest pain or shortness of breath during the night. Her only complaint today is she is requesting a diet Pepsi, diet Pepsi was treated for her she was very appreciative. Current oxygenation status 95% on room air. After being started on bisoprolol 5 mg daily for ventricular bigeminy her heart rate is 60s to 70s and she denies any chest pain. Exam Vital signs and Labs for Last 24 Hours: Temp Pulse Resp BP Pulse Ox 97.6 F 84 19 120/58 L 98 04/02/21 12:00 04/02/21 17:17 04/02/21 12:00 04/02/21 12:00 04/02/21 12:00 Laboratory Results - last 24 hr 04/02/21 06:40: WBC 10.9 H, RBC 3.82 L, Hgb 10.9 L, Hct 35.7 L, MCV 93.3, MCH 28.5, MCHC 30.5 L, RDW 14.5, Plt Count 231, MPV 7.8, Neut % (Auto) 66.3, Lymph % (Auto) 30.1, [place] % (Auto) 2.2, Eos % (Auto) 0.5, Baso % (Auto) 0.9, Neut # (Auto) 7.3, Lymph # (Auto) 3.3, [place] # (Auto) 0.2, Eos # (Auto) 0.1, Baso # (Auto) 0.1 04/02/21 06:40: Sodium 143, Potassium 4.6, Chloride 113 H, Carbon Dioxide 23, Anion Gap 11.6, BUN 43 H, Creatinine 1.60 H, Estimated Creat Clear 42, Estimated GFR 32 L, Est GFR ( Amer) 38 L, Glucose 169 H, Calcium 8.6 04/02/21 06:40: Total Bilirubin 0.3, Direct Bilirubin 0.3, Conjugated Bilirubin 0.0, Indirect Bilirubin 0.0, Unconjugated Bilirubin 0.0, AST 38 H D, ALT 22 D, Alkaline Phosphatase 74, Total Protein 5.8 L, Albumin 3.3 L, Triglycerides 133, Cholesterol 122 L, LDL Cholesterol Direct 56.98 L, VLDL Cholesterol 27, HDL Cholesterol 37 L, Cholesterol/HDL Ratio 3.3 I & O for Last 24 hours: Intake & Output 03/30/21 03/31/21 04/01/21 04/02/21 23:59 23:59 23:59 23:59 Intake Total 360 / 360 720 / 720 1920 / 1920 480 / 480 Output Total 0 / 0 0 / 0 Balance 360 / 360 720 / 720 1920 / 1920 480 / 480 Weight 182 lb 9 oz 191 lb 2.252 oz 186 lb 9.6 oz 193 lb 14.4 oz - Constitutional no acute distress - *Routine HEENT Exam Head: Present: normocephalic Eye: Present: EOMI ENT: Present: mucous membranes moist - *Routine Neck Exam Present: trachea midline. Absent: tracheal deviation - *Routine Respiratory Exam Present: CTA bilaterally. Absent: accessory muscle use - *Routine Cardiovascular Exam Present: RRR - *Routine Abdominal Exam Present: soft, normoactive bowel sounds. Absent: tenderness, firm - *Routine Extremities Exam Present: full ROM, pulses intact. Absent: cyanosis, clubbing, calf tenderness - *Routine Skin Exam Present: intact, warm. Absent: cyanosis, erythema - *Routine Neurological Exam Present: alert, oriented X3. Absent: motor deficit - Routine Psychiatric Exam Present: normal affect, normal thought process. Absent: auditory hallucinations Assessment and Plan (1) PVCs (premature ventricular contractions) Status: Acute Category: Medical Code(s): I49.3 - Ventricular premature depolarization (2) Ventricular bigeminy Status: Acute Category: Medical Code(s): I49.8 - Other specified cardiac arrhythmias (3) Syncope Status: Acute Category: Medical Code(s): R55 - Syncope and collapse (4) Acute kidney injury Status: Acute Category: Medical Code(s): N17.9 - Acute kidney failure, unspecified (5) Essential (primary) hypertension Status: Chronic Category: Medical Code(s): I10 - Essential (primary) hypertension (6) Hyperlipidemia, unspecified Status: Chronic Qualifiers: Hyperlipidemia type: other hyperlipidemia Qualified Code(s): E78.49 - Other hyperlipidemia Category: Medical Code(s): E78.5 - Hyperlipidemia, unspecified (7) Hypothyroidism, unspecified Status: Chronic Qualifiers: Hypothyroidism type: other Qualified Code(s): E03.8 - Other specified hypothyroidism Category: Medical Code(s): E03.9 - Hypothyroidism, unspecified (8) Major depressive disorder, recurrent, unspecified Status: Chronic
--- NOTE | 2021-04-02 10:06 | HMH.ACPN2 ---
Internal Medicine - PN: Subj *Date: 04/02/21 *Time: 10:06 Exam Vital signs and Labs for Last 24 Hours: Temp Pulse Resp BP Pulse Ox 97.9 F 55 L 21 128/73 95 04/02/21 08:00 04/02/21 08:00 04/02/21 08:00 04/02/21 08:00 04/02/21 08:00 Laboratory Results - last 24 hr 04/02/21 06:40: WBC 10.9 H, RBC 3.82 L, Hgb 10.9 L, Hct 35.7 L, MCV 93.3, MCH 28.5, MCHC 30.5 L, RDW 14.5, Plt Count 231, MPV 7.8, Neut % (Auto) 66.3, Lymph % (Auto) 30.1, [place] % (Auto) 2.2, Eos % (Auto) 0.5, Baso % (Auto) 0.9, Neut # (Auto) 7.3, Lymph # (Auto) 3.3, [place] # (Auto) 0.2, Eos # (Auto) 0.1, Baso # (Auto) 0.1 04/02/21 06:40: Sodium 143, Potassium 4.6, Chloride 113 H, Carbon Dioxide 23, Anion Gap 11.6, BUN 43 H, Creatinine 1.60 H, Estimated Creat Clear 42, Estimated GFR 32 L, Est GFR ( Amer) 38 L, Glucose 169 H, Calcium 8.6 I & O for Last 24 hours: Intake & Output 03/30/21 03/31/21 04/01/21 04/02/21 23:59 23:59 23:59 23:59 Intake Total 360 / 360 720 / 720 1920 / 1920 240 / 240 Output Total 0 / 0 0 / 0 Balance 360 / 360 720 / 720 1920 / 1920 240 / 240 Weight 82.809 kg 86.7 kg 84.64 kg 87.952 kg Assessment and Plan (1) Ventricular bigeminy Status: Acute Category: Medical Code(s): I49.8 - Other specified cardiac arrhythmias (2) Syncope Status: Acute Category: Medical Code(s): R55 - Syncope and collapse (3) Acute kidney injury Status: Acute Category: Medical Code(s): N17.9 - Acute kidney failure, unspecified (4) Essential (primary) hypertension Status: Chronic Category: Medical Code(s): I10 - Essential (primary) hypertension (5) Hyperlipidemia, unspecified Status: Chronic Qualifiers: Hyperlipidemia type: other hyperlipidemia Category: Medical Code(s): E78.5 - Hyperlipidemia, unspecified (6) Hypothyroidism, unspecified Status: Chronic Qualifiers: Hypothyroidism type: other Qualified Code(s): E03.8 - Other specified hypothyroidism Category: Medical Code(s): E03.9 - Hypothyroidism, unspecified (7) Major depressive disorder, recurrent, unspecified Status: Chronic Category: Medical Code(s): F33.9 - Major depressive disorder, recurrent, unspecified (8) Type 2 diabetes mellitus without complications Status: Chronic Qualifiers: 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 Qualified Code(s): E11.9 - Type 2 diabetes mellitus without complications Category: Medical Code(s): E11.9 - Type 2 diabetes mellitus without complications (9) Vascular dementia with behavioral disturbance Status: Chronic Category: Medical Code(s): F01.51 - Vascular dementia with behavioral disturbance (10) Obesity (BMI 30-39.9) Status: Acute Category: Medical Code(s): E66.9 - Obesity, unspecified (11) HCAP (healthcare-associated pneumonia) Status: Acute Category: Medical Code(s): J18.9 - Pneumonia, unspecified organism The patient's infection will respond to the chosen ABx?: Yes (NO SPECIMANS PENDING, EMPIRIC PNEUMONIA COVERAGE) Is the patient receiving the right drug, dose, and route?: Yes Could a more targeted ABx be ordered?: No
--- NOTE | 2021-04-02 10:25 | HMH.PNCARD ---
Subjective Date: 04/02/21 Time: 10:00 Principal diagnosis: ventricular bigeminy/frequent PVCs Interval history: History of present illness: This is a 75-year-old white female who resides at [facility]. She presented to the emergency department with complaints of weakness and syncope. The patient was in the shower and got lightheaded and very unsteady. The staff had to lower her to the ground. The staff reported that the patient lost consciousness but there is no documentation about how long she lost consciousness. The patient states that she has been feeling more weak than usual. She did have some nasal congestion, nausea, vomiting and cough. She does have an upper respiratory infection with parainfluenza. She denies any chest pain or pressure. She denies any shortness of breath or edema. She denies any fever, chills, diarrhea, PND or orthopnea. Cardiology was consulted because on a pulse oximetry monitor her heart rate was 48 bpm, so cardiology was consulted for bradycardia. At the time of our evaluation the patient was tachycardic with a heart rate of 115. She was placed on a property assessment monitor and was found to be in ventricular bigeminy with a heart rate actually in the 80-90s. The patient states that she does feel fluttering of her heart intermittently but not all of the time. She states it feels as if her heart is skipping beats. [facility] History Exam Vital signs and Labs for Last 24 Hours: Temp Pulse Resp BP Pulse Ox 97.9 F 55 L 21 128/73 95 04/02/21 08:00 04/02/21 08:00 04/02/21 08:00 04/02/21 08:00 04/02/21 08:00 Laboratory Results - last 24 hr 04/02/21 06:40: WBC 10.9 H, RBC 3.82 L, Hgb 10.9 L, Hct 35.7 L, MCV 93.3, MCH 28.5, MCHC 30.5 L, RDW 14.5, Plt Count 231, MPV 7.8, Neut % (Auto) 66.3, Lymph % (Auto) 30.1, [place] % (Auto) 2.2, Eos % (Auto) 0.5, Baso % (Auto) 0.9, Neut # (Auto) 7.3, Lymph # (Auto) 3.3, [place] # (Auto) 0.2, Eos # (Auto) 0.1, Baso # (Auto) 0.1 04/02/21 06:40: Sodium 143, Potassium 4.6, Chloride 113 H, Carbon Dioxide 23, Anion Gap 11.6, BUN 43 H, Creatinine 1.60 H, Estimated Creat Clear 42, Estimated GFR 32 L, Est GFR ( Amer) 38 L, Glucose 169 H, Calcium 8.6 I & O for Last 24 hours: Intake & Output 03/30/21 03/31/21 04/01/21 04/02/21 23:59 23:59 23:59 23:59 Intake Total 360 / 360 720 / 720 1920 / 1920 240 / 240 Output Total 0 / 0 0 / 0 Balance 360 / 360 720 / 720 1920 / 1920 240 / 240 Weight 182 lb 9 oz 191 lb 2.252 oz 186 lb 9.6 oz 193 lb 14.4 oz Narrative: Telemetry strip shows sinus rhythm with PVCs. echo shows: 1. Mild biatrial enlargement, normal left ventricular size, mild concentric left ventricular hypertrophy, visually estimated ejection fraction 55% with no regional wall motion abnormality, grade 1 diastolic dysfunction seen without tissue Doppler evidence of raise left atrial pressure. 2. Mildly enlarged right ventricle with normal contractility. 3. Trace mitral and tricuspid regurgitation. 4. No significant pericardial effusion noted. 5. Inferior vena cava is poorly visualized. - Constitutional no acute distress, obese - *Routine HEENT Exam Head: Present: normocephalic, atraumatic Eye: Present: EOMI, PERRL ENT: Present: mucous membranes moist - *Routine Neck Exam Present: supple, full ROM, normal carotid upstroke. Absent: JVD, carotid bruit, lymphadenopathy - *Routine Respiratory Exam Present: CTA bilaterally - *Routine Cardiovascular Exam Present: RRR, Normal S1, Normal S2. Absent: murmur - *Routine Abdominal Exam Present: soft, normoactive bowel sounds. Absent: tenderness, distended - *Routine Extremities Exam Present: full ROM, pulses intact, normal capillary refill. Absent: cyanosis, clubbing, edema - *Routine Skin Exam Present: intact, warm. Absent: erythema, rash - *Routine Neurological Exam Present: alert, oriented X3, CN II-XII intact. Absent: sensory deficit, motor deficit Progress Note: A&P (1) P
[2021-04-02 11:07] LABS: Alanine Aminotransferase 22 U/L (12-78); Albumin Level 3.3 g/dl (3.5-5.0); Alkaline Phosphatase 74 U/L (38-126); Aspartate Amino Transferase 38 U/L (14-36); Bilirubin,Direct 0.3 mg/dl (0.0-0.4); Bilirubin,Total 0.3 mg/dl (0.2-1.3); Chol/HDL Ratio 3.3 (1-3.5); Cholesterol 122 mg/dl (140-200); HDL Cholesterol 37 mg/dl (40-60); Total Protein,Serum 5.8 g/dl (6.3-8.2); Triglycerides 133 mg/dl (30-150); VLDL Cholesterol 27 mg/dL (0-40)
--- NOTE | 2021-04-02 11:24 | HMH.PTEV ---
Physical Therapy Evaluation Rehab PT IP Evaluation Start: 04/02/21 10:15 Freq: .once Status: Active Protocol: Document 04/02/21 11:21 MELISSA (Rec: 04/02/21 11:24 MELISSA [id number]) Subjective/History History History 75 yo female presents via ems from [facility] for weakness. Patient reports she was in shower this morning and got lightheaded which she describes as unsteady and then lost consciousness, was lowered slowly to ground by staff. per EMS noted o2 sat 88 % on RA, improved on NC. pt states she has been feeling more weak than usual over last few days with increased nasal congestion,n/v and cough .Tested positive for parainfluenza virus yesterday at [facility]. Pt has w/ hx HTN, HLD, CVA, MDD, DM. Subjective Subjective Pt reports she needs to walk Rehab PT IP Eval Objective Appearance Patient Behavior Appropriate,Cooperative Patient Orientation Place,Name,Birthday Difficulty following instructions none Speech Pattern Appropriate Ambulation Patient Able to Ambulate Yes Ambulation Observation IP General Gait Pattern Observation No Deviations/Normal Ambulation Distance (feet) 75 Ambulation Assistive Device Rolling Walker Ambulation Ability Supervision/Stand by Balance Ability to Arise Able, uses arms to help Sitting Balance Steady, safe Standing Balance Steady, wide stance Dynamic Sitting Balance Ability Good Dynamic Standing Balance Ability Fair Transfers Chair Transfer Ability Independent Sit to Stand Chair Transfer Ability Supervision/Stand by Rehab PT IP prob,goals,plan Problems Date of Evaluation: 04/02/21 Rehab Potential Rehab Potential Innapropriate for Skilled Therapy Discharge Plan PT Discharge Plan Pt functionally safe to return to [facility] once medically stable - no skilled therapy needs at this time G -code Required Yes Eval Complexity Eval Charge Codes 55532 - Low Complexity G Codes PT Current Status Mobility PT Current Status Modifier CJ-At least 20% but less than 40%
[2021-04-02 11:26] LABS: Direct LDL Cholesterol 56.98 mg/dL (100-129)
--- NOTE | 2021-04-02 12:01 | HMH.OTEV ---
OT Inpatient Evaluation Rehab OT IP Evaluation Start: 04/02/21 10:16 Freq: ONCE Status: Complete Protocol: Document 04/02/21 11:55 [facility] (Rec: 04/02/21 12:01 [facility] [id number]) Rehab OT IP Assessment Subjective History Pt oriented x 3 on arrival. Pt agreeable to engage in therapy evaluation. Pt was admitted via ED on 03/30/20 due to weakness and SOB. The following information was copied from history and physical: 75 yo female presents via ems from [facility] for weakness. Patient reports she was in shower this morning and got lightheaded which she describes as unsteady and then lost consciousness, was lowered slowly to ground by staff. per EMS noted o2 sat 88 % on RA, improved on NC. pt states she has been feeling more weak than usual over last few days with increased nasal congestion,n/v and cough .Tested positive for parainfluenza virus yesterday at senior living. Pt has w/ hx HTN, HLD, CVA, MDD, DM. Pt admitted for further work up, labs show THERESA, with creatinine 1.9. BUN/Cr ratio>20. CXR with right lower opacity. Will cover pneumonia with antibiotics Pt reports prior to the hospital she lived at [facility]. Pt claims she was independent with all ADLs such as dressing, bathing, and feeding. Pt reports she depends on employees for completion of all IADLs. Pt does not use a walker during ambulation. Subjective I am doing fine I think. Pt resting in chair on arrival . Pt engaged in lower body dressing by kapil
[2021-04-03] VITALS: PULSE 80
[2021-04-03 04:00] VITALS: PULSE 60
[2021-04-03 04:09] VITALS: BP 109/59; PULSE 60; RESP 22; TEMP 36.7; O2SAT 94
[2021-04-03 05:00] VITALS: BMI 32.9
[2021-04-03 05:24] VITALS: PULSE 86; PULSE 88; O2SAT 97
--- NOTE | 2021-04-03 06:58 | PC.NURSE ---
Pt was initially very anxious at the beginning of the shift, she ambulated with staff to [facility] and tolerated well. Pt was able to sleep well during the night. Denies any n/v/d, soa, or dyspnea. Pt can have episode of confusion and anxiety but was able to be redirected.
[2021-04-03 07:30] LABS: Basophils # 0.1 K/mm3 (0-0.2); Basophils % 0.4 % (0.1-2.0); Hematocrit 33.3 % (37.0-47.0); Hemoglobin 10.3 g/dL (12.2-16.2); Lymphocytes # 4.1 K/mm3 (0.7-4.5); Lymphocytes % 27.1 % (10-50); Mean Corpuscular HGB Conc 31.1 g/dL (31.8-35.4); Mean Corpuscular Hemoglobin 28.8 pg (27.0-31.2); Mean Corpuscular Volume 92.9 fl (81-99); Mean Platelet Volume 8.1 fl (7.4-10.4); Monocytes # 0.5 K/mm3 (0.1-1.0); Monocytes % 3.5 % (1.7-9.3); Neutrophils # 10.4 K/mm3 (1.8-7.8); Platelet Count 245 K/mm3 (142-424); Red Blood Count 3.58 M/mm3 (4.20-5.40); Red Cell Distribution Width 14.2 % (11.5-17.5)
[2021-04-03 07:31] LABS: MANUAL DIFFERENTIAL MANUAL DIFFERENTIAL (MANUAL DIFF)
[2021-04-03 07:41] LABS: Blood Urea Nitrogen 42 mg/dl (7-17); Calcium 8.3 mg/dl (8.4-10.2); Carbon Dioxide 24 mmol/L (22.0-30.0); Chloride 112 mmol/L (98-107); Creatinine Clearance Estimated 42 mL/min (50-200); Estimated Glomerular Filt Rate 32 ml/min (>60); GFR (African American) 38 ML/MIN (>60); Glucose 222 mg/dl (74-100); Sodium 140 mmol/L (136-145)
[2021-04-03 08:00] VITALS: BP 160/74; PULSE 69; RESP 16; TEMP 36.6; O2SAT 98
[2021-04-03 08:20] LABS: Lymphocytes % 23 % (10-50); Monocytes % 4 % (2-9); Neutrophils % 72 % (42-76); Total Cells Counted 100
[2021-04-03 08:21] LABS: Anisocytosis 1+; Hypochromasia 1+; Macrocytosis 1+; Platelet Estimate Normal
--- NOTE | 2021-04-03 09:37 | HMH.DCSUM ---
General - General Admission date:: 03/30/21 Discharge date: 04/03/21 HPI HPI: 75 yo female presents via ems from [facility] for weakness. Patient reports she was in shower this morning and got lightheaded which she describes as unsteady and then lost consciousness, was lowered slowly to ground by staff. per EMS noted o2 sat 88% on RA, improved on NC. pt states she has been feeling more weak than usual over last few days with increased nasal congestion,n/v and cough.[facility]. Pt has w/ hx HTN, HLD, CVA, MDD, DM. Pt admitted for further work up, labs show THERESA, with creatinine 1.9. BUN/Cr ratio>20. CXR with right lower opacity. Will cover pneumonia with antibiotics Hospital Course Hospital Course: echo:Conclusion 1. Mild biatrial enlargement, normal left ventricular size, mild concentric left ventricular hypertrophy, visually estimated ejection fraction 55% with no regional wall motion abnormality, grade 1 diastolic dysfunction seen without tissue Doppler evidence of raise left atrial pressure. 2. Mildly enlarged right ventricle with normal contractility. 3. Trace mitral and tricuspid regurgitation. 4. No significant pericardial effusion noted. 5. Inferior vena cava is poorly visualized. Abnormal Lab Results 04/02/21 06:40: AST 38 H D, Total Protein 5.8 L, Albumin 3.3 L, Cholesterol 122 L, LDL Cholesterol Direct 56.98 L, HDL Cholesterol 37 L 04/03/21 06:38: WBC 15.0 H D, RBC 3.58 L, Hgb 10.3 L, Hct 33.3 L, MCHC 31.1 L, Eos % (Auto) 0.0 L, Neut # (Auto) 10.4 H 04/03/21 06:38: Chloride 112 H, BUN 42 H, Creatinine 1.60 H, Estimated GFR 32 L, Est GFR ( Amer) 38 L, Glucose 222 H D, Calcium 8.3 L Ordering Physician: Nicolas Pritchard MD Date of Service: 03/30/21 Procedure(s): XR chest portable Accession Number(s): [id number] cc: Provider,Referral MD; Nilo Berkowitz MD~ PROCEDURE INFORMATION: Exam: XR Chest Exam date and time: 03/30/2021 9:46 AM Age: 75 years old Clinical indication: Shortness of breath; Additional info: Increased cough, hypoxia TECHNIQUE: Imaging protocol: XR of the chest. Views: 1 view. COMPARISON: CR CXR2 XR chest AP 07/13/2017 9:51 PM FINDINGS: Lungs: Hypoinflation with interstitial prominence , chronic granulomatous disease, and trace basilar airspace disease. Pleural spaces: No pleural effusion. Heart/Mediastinum: No cardiomegaly. Bones/joints: Degenerative change. IMPRESSION: Hypoinflation with interstitial prominence , chronic granulomatous disease, and trace basilar airspace disease . Ordering Physician: Nicolas Pritchard MD Date of Service: 03/30/21 Procedure(s): CT head/brain wo con Accession Number(s): [id number] cc: Jose Mullen MD; Provider,Hafsa FUENTES; Nicolas Pritchard MD~ PROCEDURE INFORMATION: Exam: CT Head Without Contrast Exam date and time: 03/30/2021 9:46 AM Age: 75 years old Clinical indication: Syncope and collapse TECHNIQUE: Imaging protocol: Computed tomography of the head without contrast. Radiation optimization: All CT scans at this facility use at least one of these dose optimization techniques: automated exposure control; mA and/or kV adjustment per patient size (includes targeted exams where dose is matched to clinical indication); or iterative reconstruction. COMPARISON: CT HEAD/BRAIN WO CON 01/07/2021 1:36 PM FINDINGS: Brain: There are low-attenuation foci in the periventricular and subcortical white matter of both hemispheres. This is a nonspecific finding which likely represents microangiopathic change in a patient of this age. There are chronic infarcts with encephalomalacia in the left frontal lobe and right parietal lobe. There are chronic lacunar infarcts in the basal ganglia bilaterally. There is no evidence of acute territorial infarction, hemorrhage, mass, mass effect, or midline shift. There are no abnormal intra-ax
--- NOTE | 2021-04-03 10:33 | PC.NURSE ---
report called to rudy
== END 2021-04-03 13:30 ==
LOC: ER 09:44 → 2ND 13:08
PROVIDERS: Nurse Practitioner Family; Admitting Provider Emergency Medicine; Emergency Provider Student in an Organized Health Care Education/Training Program; Visit Provider Emergency Medicine
DX: N17.9 Acute kidney failure, unspecified (principal); Z79.899 Other long term (current) drug therapy; E03.9 Hypothyroidism, unspecified; I10 Essential (primary) hypertension; E78.5 Hyperlipidemia, unspecified; E11.9 Type 2 diabetes mellitus without complications; R55 Syncope and collapse; F33.9 Major depressive disorder, recurrent, unspecified; F01.51 Vascular dementia, unspecified severity, with behavioral disturbance; Z79.4 Long term (current) use of insulin; I49.3 Ventricular premature depolarization; J18.9 Pneumonia, unspecified organism; Z20.822 Contact with and (suspected) exposure to COVID-19
CPT/HCPCS: G0378; 36415; 70450; 71045; 80048; 80053; 80061; 80076; 82550; 82553; 83690; 83735; 84484; 85007; 85025; 92610; 93005; 93306; 94640; 96365; 96367; 96375; 97161; 97166; 99284; C9803; J0456; J0696; J2405; U0003; U0005

== ENCOUNTER → 2021-04-11 04:34 | Outpatient (REF) | payer MEDICARE, MEDICAID, SELFPAY ==
[2021-04-11 05:04] LABS: Basophils # 0.4 K/mm3 (0-0.2); Basophils % 3.2 % (0.1-2.0); Eosinophils # 0.4 K/mm3 (0.0-0.4); Eosinophils % 3.5 % (0.1-12.0); Hematocrit 35.2 % (37.0-47.0); Hemoglobin 10.8 g/dL (12.2-16.2); Lymphocytes # 3.2 K/mm3 (0.7-4.5); Lymphocytes % 29.6 % (10-50); Mean Corpuscular HGB Conc 30.8 g/dL (31.8-35.4); Monocytes # 0.5 K/mm3 (0.1-1.0); Monocytes % 4.1 % (1.7-9.3); Neutrophils # 6.5 K/mm3 (1.8-7.8); Neutrophils % 59.5 % (37.0-80.0); Platelet Count 261 K/mm3 (142-424); Red Blood Count 3.74 M/mm3 (4.20-5.40)
[2021-04-11 05:10] LABS: Chloride 113 mmol/L (98-107); Potassium 4.4 mmoL/L (3.5-5.1); Sodium 140 mmol/L (136-145)
[2021-04-11 05:13] LABS: Anion Gap 7.4 mEq/L (5-15); Blood Urea Nitrogen 17 mg/dl (7-17); Carbon Dioxide 24 mmol/L (22.0-30.0); Estimated Glomerular Filt Rate 40 ml/min (>60); GFR (African American) 49 ML/MIN (>60)
[2021-04-11 05:14] LABS: Calcium 8.2 mg/dl (8.4-10.2); Glucose 81 mg/dl (74-100)
== END ==
LOC: LAB.DROPOF 04:34
PROVIDERS: Visit Provider Emergency Medicine
DX: I10 Essential (primary) hypertension (principal); E78.5 Hyperlipidemia, unspecified; E03.9 Hypothyroidism, unspecified
CPT/HCPCS: 80048; 85025

== ENCOUNTER → 2021-04-14 06:11 | Outpatient (CLI) | payer MEDICARE, MEDICAID, SELFPAY ==
[2021-04-14 14:22] LABS: Basophils # 0.1 K/mm3 (0-0.2); Basophils % 0.8 % (0.1-2.0); Eosinophils # 0.3 K/mm3 (0.0-0.4); Eosinophils % 3.5 % (0.1-12.0); Hematocrit 34.7 % (37.0-47.0); Hemoglobin 10.8 g/dL (12.2-16.2); Lymphocytes # 3.8 K/mm3 (0.7-4.5); Lymphocytes % 42.3 % (10-50); Mean Corpuscular Hemoglobin 29.1 pg (27.0-31.2); Mean Corpuscular Volume 93.8 fl (81-99); Mean Platelet Volume 8.9 fl (7.4-10.4); Monocytes # 0.4 K/mm3 (0.1-1.0); Monocytes % 4.7 % (1.7-9.3); Neutrophils # 4.4 K/mm3 (1.8-7.8); Neutrophils % 48.7 % (37.0-80.0); Platelet Count 229 K/mm3 (142-424); Red Cell Distribution Width 14.8 % (11.5-17.5)
[2021-04-14 14:37] LABS: Chloride 110 mmol/L (98-107); Potassium 4.6 mmoL/L (3.5-5.1); Sodium 139 mmol/L (136-145)
[2021-04-14 14:40] LABS: Anion Gap 8.6 mEq/L (5-15); Blood Urea Nitrogen 20 mg/dl (7-17); Carbon Dioxide 25 mmol/L (22.0-30.0); Estimated Glomerular Filt Rate 37 ml/min (>60); GFR (African American) 45 ML/MIN (>60)
[2021-04-14 14:41] LABS: Glucose 82 mg/dl (74-100)
== END ==
PROVIDERS: PCP Emergency Medicine; Visit Provider Emergency Medicine
DX: I10 Essential (primary) hypertension (principal)
CPT/HCPCS: 80048; 85025

== ENCOUNTER → 2021-04-30 07:56 | Outpatient (CLI) | payer MEDICARE, MEDICAID, SELFPAY ==
--- NOTE | 2021-04-30 | CA_ITS ---
APPROVED REPORT Exam: Pharmacologic Technologist: iN Chandler, Ht: 5 ft 7 in Wt: 230 lbs BSA: 2.15 m2 HR: 49 bpm BP: 144/59 mmHg Rhythm: MARKED SINUS JUDIT, LATERAL T WAVE ABNS Medical History Medical History: HTN, Hyperlipidemia, Diabetes Medications: Lorazepam,,,,, Levothyroxine,,,,, Aspirin,,,,, Losartan,,,,, Atorvastatin,,,,, CloPIdogrel,,,,, Acetaminophen,,,,, DONEPEZIL,,,,, BisOPROLOL,,,,, Lactulose,,,,, Quetiapine,,,,, MeLATONIN,,,,, Allergies: DIPHENHYDRAMINE Cardiac Risk Factors: HTN, Hyperlipidemia, Diabetes Stress Test Details Test: LEXISCAN HR Resting HR: 49 bpm Max Heart Rate (APMHR): 147.819273 bpm Max HR Achieved: 71 bpm Target HR (85% APMHR): 124.496326 bpm % of APMHR: 48.30 Recovery HR: 58 bpm BP Resting BP: 144/59 mmHg Max BP: 148/59 mmHg Recovery BP: 138.0/67.0 mmHg ECG Resting ECG: MARKED SINUS JUDIT, LATERAL T WAVE ABNS Clinical Exercise duration: 04:03 min Highest Stage Achieved: Stress ECG Conclusion MILD SOA, NO CP. MODERATELY FREQUENT PVCS. NO SIGNIFICANT CHANGES. UNREMARKABLE LEXISCAN STRESS. MYOVIEW IMAGES REPORTED SEPARATELY. Electronically signed by : George Jimenez MD 05/01/2021 11:53:15
--- NOTE | 2021-04-30 08:02 | NM_ITS ---
APPROVED REPORT Exam: Nuclear Stress Test Indication: SOB, Syncope, HTN, DM Patient Location: Outpatient Stress Tech: Ni Chandler NM Tech:Bozena Bhatt, ARRT, RT (R)(N) Ht: 5 ft 7 in Wt: 230 lbs Bra Size: C HR: 49 bpm BP: 144/59 mmHg BSA: 2.15 m2 BMI: 36.0 History: SOB, Syncope, HTN, DM Procedure: Patient received a 0.4 mg of intravenous Lexiscan, resting heart rate 49 bpm, resting blood pressure 144/59 mmHg, with Lexiscan maximum heart rate achived was 71 bpm which is Less than 85 % of the maximum predicted heart rate and blood pressure was 148/59 mmHg. With Lexiscan, patient denied any complaint of chest pain. Electrocardiogram Resting electrocardiogram shows sinus rhythm, with Lexiscan there is less than 1.[address] segment depression noted from the baseline EKG. The EKG portion of the Lexiscan is nondiagnostic. Cardiac Stress and Resting SPECT Images: Cardiac Stress and Resting SPECT images were obtained using technetium 99m Myoview 30.0 mCi stress and 10.27 mCi at rest. Patient unable to lay on stomach for prone images. Gated SPECT for analysis of segmental wall motion and calculation of the ejection fraction also done. Cardiac stress and resting SPECT visual a fixed defect involving the inferior and inferior apical wall consistent with area of myocardial scarring, compared right ejection fraction is 41% with moderate inferior and apical wall hypokinesis. Right ventricle is normal size and contractility. Conclusion: 1. The EKG portion of the Lexiscan is nondiagnostic. 2. Scintigraphic evidence of myocardial scarring involving the inferior and apical wall without significant sondra-infarct ischemia, computer derived ejection fraction is 41% with segmental wall motion abnormality described above, right ventricle is normal size and contractility. 3. Abnormal Lexiscan Myoview study. Electronically signed by : George Jimenez MD 05/01/2021 17:36:11
--- NOTE | 2021-04-30 09:50 | HMH.ITSHM ---
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 []WUETIAPINE LORAZEPAM INSULIN ATORVASTATIN VENLAFAXINE ONDANSETRON MIRTAZAPINE MEMANTINE MELATONIN LOSARTAN LOPERAMIDE LINAGLIPTIN LEVOTHYROXINE LACTULOSE GUAIFENESIN FESOTERODINE DONEPEZIL CLOPIDOGREL BISOPROLOL BISACODYL ASA
== END ==
PROVIDERS: PCP Emergency Medicine; Visit Provider Urology
DX: E66.9 Obesity, unspecified (principal); I10 Essential (primary) hypertension; I49.3 Ventricular premature depolarization; I49.8 Other specified cardiac arrhythmias; R06.00 Dyspnea, unspecified; R55 Syncope and collapse; Z68.28 Body mass index [BMI] 28.0-28.9, adult
CPT/HCPCS: 78452; 93017; A9502; J2785

== ENCOUNTER → 2021-05-06 06:45 | Outpatient (REF) | payer MEDICARE, MEDICAID, SELFPAY | LOC: LAB.DROPOF 06:45 | PROVIDERS: Visit Provider Emergency Medicine | DX: U07.1 COVID-19 (principal) ==

== ENCOUNTER → 2021-05-06 06:52 | Outpatient (REF) | payer MEDICARE, MEDICAID, SELFPAY ==
[2021-05-06 08:13] LABS: Basophils # 0.1 K/mm3 (0-0.2); Basophils % 0.4 % (0.1-2.0); Eosinophils # 0.2 K/mm3 (0.0-0.4); Eosinophils % 1.5 % (0.1-12.0); Hematocrit 36.4 % (37.0-47.0); Hemoglobin 11.7 g/dL (12.2-16.2); Lymphocytes # 3.5 K/mm3 (0.7-4.5); Mean Corpuscular HGB Conc 32.3 g/dL (31.8-35.4); Mean Corpuscular Hemoglobin 29.1 pg (27.0-31.2); Mean Corpuscular Volume 90.4 fl (81-99); Mean Platelet Volume 7.8 fl (7.4-10.4); Monocytes # 0.6 K/mm3 (0.1-1.0); Monocytes % 4.8 % (1.7-9.3); Neutrophils # 8.3 K/mm3 (1.8-7.8); Neutrophils % 65.3 % (37.0-80.0); Platelet Count 206 K/mm3 (142-424); Red Blood Count 4.03 M/mm3 (4.20-5.40); Red Cell Distribution Width 14.2 % (11.5-17.5); White Blood Count 12.6 K/mm3 (4.8-10.8)
[2021-05-06 08:28] LABS: Chloride 106 mmol/L (98-107); Potassium 5.2 mmoL/L (3.5-5.1); Sodium 138 mmol/L (136-145)
[2021-05-06 08:31] LABS: Anion Gap 12.2 mEq/L (5-15); Blood Urea Nitrogen 34 mg/dl (7-17); Calcium 7.6 mg/dl (8.4-10.2); Carbon Dioxide 25 mmol/L (22.0-30.0); Estimated Glomerular Filt Rate 28 ml/min (>60); GFR (African American) 33 ML/MIN (>60); Glucose 100 mg/dl (74-100)
== END ==
LOC: LAB.DROPOF 06:52
PROVIDERS: Nurse Practitioner Family; Visit Provider Emergency Medicine
DX: E78.2 Mixed hyperlipidemia (principal); I10 Essential (primary) hypertension; I20.8 Other forms of angina pectoris; I49.3 Ventricular premature depolarization; I49.8 Other specified cardiac arrhythmias; I63.9 Cerebral infarction, unspecified; R06.02 Shortness of breath; R94.39 Abnormal result of other cardiovascular function study; Z01.812 Encounter for preprocedural laboratory examination; U07.1 COVID-19
CPT/HCPCS: 80048; 85025; C9803; U0003; U0005

== ENCOUNTER → 2021-05-22 12:24 | Outpatient (CLI) | payer MEDICARE, MEDICAID, SELFPAY ==
[2021-05-22 13:20] LABS: Basophils % 0.5 % (0.1-2.0); Eosinophils # 0.3 K/mm3 (0.0-0.4); Eosinophils % 3.8 % (0.1-12.0); Hematocrit 35.6 % (37.0-47.0); Lymphocytes # 2.5 K/mm3 (0.7-4.5); Lymphocytes % 33.8 % (10-50); Mean Corpuscular HGB Conc 30.9 g/dL (31.8-35.4); Mean Corpuscular Hemoglobin 28.8 pg (27.0-31.2); Mean Corpuscular Volume 93.2 fl (81-99); Mean Platelet Volume 8.2 fl (7.4-10.4); Monocytes # 0.4 K/mm3 (0.1-1.0); Neutrophils # 4.2 K/mm3 (1.8-7.8); Neutrophils % 56.8 % (37.0-80.0); Platelet Count 237 K/mm3 (142-424); Red Blood Count 3.82 M/mm3 (4.20-5.40); Red Cell Distribution Width 15.2 % (11.5-17.5); White Blood Count 7.4 K/mm3 (4.8-10.8)
[2021-05-22 13:37] LABS: Anion Gap 10.6 mEq/L (5-15); Blood Urea Nitrogen 28 mg/dl (7-17); Calcium 8.1 mg/dl (8.4-10.2); Carbon Dioxide 27 mmol/L (22.0-30.0); Chloride 108 mmol/L (98-107); Estimated Glomerular Filt Rate 32 ml/min (>60); GFR (African American) 38 ML/MIN (>60); Glucose 113 mg/dl (74-100); Potassium 4.6 mmoL/L (3.5-5.1); Sodium 141 mmol/L (136-145)
== END ==
LOC: LAB 12:25 → LAB.DROPOF 12:52
PROVIDERS: PCP Emergency Medicine; Visit Provider Emergency Medicine
DX: Z01.812 Encounter for preprocedural laboratory examination (principal); U07.1 COVID-19
CPT/HCPCS: 80048; 85025; C9803; U0003; U0005

== ENCOUNTER 2021-05-24 08:33 | Day surgery (SDC) | payer MEDICARE, MEDICAID, SELFPAY ==
[2021-05-24] VITALS (12 sets, daily range): BP systolic 99–131; BP diastolic 48–75; PULSE 51–57; RESP 18; TEMP 36.6; O2SAT 95–98; BMI 28.3
--- NOTE | 2021-05-24 07:06 | IR_ITS ---
APPROVED REPORT Patient Location: Outpatient PROCEDURES Catheter placement in the right subclavian artery Right subclavian artery retrograde angiogram Selective coronary angiogram INDICATION Abnormal Myoview, Angina pectoris Informed consent was obtained prior to the procedure. COMPLICATIONS None Estimated Blood Loss: Less than 10 mls TECHNIQUE One percent lidocaine used to anesthetize the right anterior aspect of the wrist. The right radial artery was accessed via the Seldinger technique. A 6 Canadian sheath was placed in the right radial artery. 2.5 mg of verapamil, 800 mcg of nitroglycerin, 1mg Lidocaine and 5000 U Heparin were given through the arterial sheath. The papa catheter and a 6 Canadian JL 3 guide catheter were also used to perform selective coronary angiogram. Retrograde angiography was performed due to significant tortuosity through the subclavian artery. This was a difficult case via radial procedure as the tortuosity continued to twist the catheter. Eventually the procedure was successfully performed and retrograde angiography was performed performed to determine if the tortuosity had an atheromatous component to it. At the end of the procedure the sheath was removed good hemostasis was achieved using Traclet band, patient was transferred to the postop holding area in stable condition. ANGIOGRAPHIC RESULTS The left main artery Normal BREANNA II flow The left anterior descending artery Normal BREANNA II flow The circumflex artery Normal BREANNA II flow The right coronary artery Dominant normal BREANNA II flow The APRTIDA ventriculogram reveals Not performed The left ventricular end-diastolic pressure Not measured The innominate artery is large widely patent with significant tortuosity into the right subclavian artery with no evidence of atherosclerosis IMPRESSION Normal coronary arteries accompanied by slow flow PLAN 1. Treatment of endothelial dysfunction as evidenced by BREANNA II flow throughout the coronary arteries 2. Formal echocardiogram to better evaluate ejection fraction Electronically signed by : Stu Santiago MD 05/24/2021 12:39:35
== END 2021-05-24 14:11 | disposition home or self-care (01) ==
LOC: CATHLAB 08:36
PROVIDERS: PCP Emergency Medicine; Visit Provider Internal Medicine
DX: I25.118 Atherosclerotic heart disease of native coronary artery with other forms of angina pectoris (principal); E78.2 Mixed hyperlipidemia; I10 Essential (primary) hypertension; I49.3 Ventricular premature depolarization; I49.8 Other specified cardiac arrhythmias; R06.02 Shortness of breath; R94.39 Abnormal result of other cardiovascular function study
CPT/HCPCS: 36225; 99152; 99153; C1725; C1769; J1644; Q9967

== ENCOUNTER → 2021-08-09 10:18 | Outpatient (CLI) | payer MEDICARE, MEDICAID, SELFPAY ==
--- NOTE | 2021-08-09 10:22 | MM_ITS ---
PROCEDURE INFORMATION: Exam: MG Bilateral Screening 3D Mammography Exam date and time: 08/09/2021 10:25 AM Age: 75 years old Clinical indication: Screening mammogram. TECHNIQUE: Imaging protocol: Bilateral Screening tomosynthesis and 2D mammography including computer-aided detection (CAD) when performed. Limited assessment due to difficulty positioning the patient in a wheelchair COMPARISON: 1. MG MM DIG SCREENING MAMM BI W/CAD 08/08/2020 10:57 AM 2. MG MM DIG SCREENING MAMM BI W/CAD 08/08/2019 9:55 AM FINDINGS: MAMMOGRAPHY: Breast composition: There are scattered areas of fibroglandular density. Mass: None. Architectural distortion: No new or suspicious architectural distortion. Calcifications: No new or suspicious calcifications are present Asymmetric density: No new or suspicious asymmetric density is present Skin thickening: None. Axillary adenopathy: None. IMPRESSION: No mammographic evidence of malignancy. Recommend annual screening mammography unless otherwise clinically indicated. ASSESSMENT: BI-RADS category 1: Negative
== END ==
PROVIDERS: PCP Emergency Medicine; Visit Provider Emergency Medicine
DX: Z12.31 Encounter for screening mammogram for malignant neoplasm of breast (principal)
CPT/HCPCS: 77063; 77067

== ENCOUNTER → 2022-08-19 10:09 | Outpatient (CLI) | payer MEDICARE, MEDICAID, SELFPAY ==
--- NOTE | 2022-08-19 10:10 | MM_ITS ---
PROCEDURE INFORMATION: Exam: MG Bilateral Screening 3D Mammography Exam date and time: 08/19/2022 10:09 AM Age: 76 years old Clinical indication: Screening examination TECHNIQUE: Imaging protocol: Bilateral Screening tomosynthesis and 2D mammography including computer-aided detection (CAD) when performed. COMPARISON: 1. MG MM DIG SCREENING MAMM BI W/CAD 08/09/2021 10:25 AM 2. MG MM DIG SCREENING MAMM BI W/CAD 08/08/2020 10:57 AM FINDINGS: MAMMOGRAPHY: Breast composition: The breasts are almost entirely fatty. Mass: None. Architectural distortion: None. Calcifications: No suspicious calcifications. Asymmetric density: None. Skin thickening: None. Axillary adenopathy: None. IMPRESSION: No mammographic evidence of malignancy. Annual screening is recommended unless otherwise clinically indicated. ASSESSMENT: BI-RADS Category 1: Negative
== END ==
PROVIDERS: PCP Emergency Medicine; Visit Provider Emergency Medicine
DX: Z12.31 Encounter for screening mammogram for malignant neoplasm of breast (principal)
CPT/HCPCS: 77063; 77067

== ENCOUNTER 2023-04-24 15:43 | Outpatient (CLI) | payer MEDICARE, MEDICAID, SELFPAY ==
[2023-04-24 19:42] LABS: Microscopic, Urine URINE MICROSCOPIC (MICROSCOPIC)
[2023-04-24 20:27] LABS: Appearance,Urine SL CLOUDY (Clear); Bilirubin,Urine Negative (Negative); Blood, Urine Negative (Negative); Color,Urine YELLOW (Yellow); Glucose,Urine (UA) 1+ (Negative); Ketones,Urine Negative (Negative); Leukocyte Esterase,Urine 1+ (Negative); Nitrate,Urine POSITIVE (Negative); Protein,Urine TRACE (Negative); Specific Gravity, Urine 1.025 (1.005-1.030); Urobilinogen,Urine 0.2 EU/dl (0.2)
[2023-04-24 21:14] LABS: Bacteria,Urine 3+ /lpf; RBC,Urine Occasional #/hpf (0-3)
== END 2023-04-24 23:59 ==
PROVIDERS: PCP Internal Medicine; Visit Provider Internal Medicine
DX: R30.0 Dysuria (principal); N39.0 Urinary tract infection, site not specified
CPT/HCPCS: 81001; 87086

== ENCOUNTER 2023-06-04 09:48 | Outpatient (CLI) | payer MEDICARE, MEDICAID, SELFPAY ==
[2023-06-04 10:12] LABS: Basophils # 0.1 K/mm3 (0-0.2); Basophils % 0.4 % (0.1-2.0); Eosinophils # 0.2 K/mm3 (0.0-0.4); Hematocrit 42.1 % (37.0-47.0); Hemoglobin 12.9 g/dL (12.2-16.2); Lymphocytes # 2.9 K/mm3 (0.7-4.5); Lymphocytes % 24.6 % (10-50); Mean Corpuscular HGB Conc 30.6 g/dL (31.8-35.4); Mean Corpuscular Hemoglobin 28.1 pg (27.0-31.2); Mean Corpuscular Volume 91.7 fl (81-99); Mean Platelet Volume 8.2 fl (7.4-10.4); Monocytes # 0.4 K/mm3 (0.1-1.0); Monocytes % 3.4 % (1.7-9.3); Neutrophils # 8.1 K/mm3 (1.8-7.8); Neutrophils % 69.6 % (37.0-80.0); Platelet Count 295 K/mm3 (142-424); Red Blood Count 4.59 M/mm3 (4.20-5.40); Red Cell Distribution Width 15.4 % (11.5-17.5); White Blood Count 11.6 K/mm3 (4.8-10.8)
[2023-06-04 11:09] LABS: Chloride 106 mmol/L (98-107); Potassium 4.2 mmoL/L (3.5-5.1); Sodium 141 mmol/L (136-145)
[2023-06-04 11:11] LABS: Blood Urea Nitrogen 19 mg/dl (7-17); Estimated Glomerular Filt Rate 37 ml/min (>60); GFR (African American) 44 ML/MIN (>60)
[2023-06-04 11:12] LABS: Alanine Aminotransferase 19 U/L (12-78); Albumin Level 3.3 g/dl (3.5-5.0); Alkaline Phosphatase 153 U/L (38-126); Anion Gap 11.2 mEq/L (5-15); Aspartate Amino Transferase 22 U/L (14-36); Bilirubin,Direct 0.2 mg/dl (0.0-0.4); Bilirubin,Total 0.2 mg/dl (0.2-1.3); Calcium 8.7 mg/dl (8.4-10.2); Carbon Dioxide 28 mmol/L (22.0-30.0); Cholesterol 122 mg/dl (140-200); Glucose 239 mg/dl (74-100); Total Protein,Serum 5.4 g/dl (6.3-8.2); Triglycerides 118 mg/dl (30-150); VLDL Cholesterol 24 mg/dL (0-40)
[2023-06-04 11:13] LABS: Chol/HDL Ratio 2.4 (1-3.5); HDL Cholesterol 50 mg/dl (40-60)
[2023-06-04 11:23] LABS: Direct LDL Cholesterol 53.31 mg/dL (100-129)
[2023-06-04 11:27] LABS: Free T4 (Free Thyroxine) 0.81 ng/dl (0.78-2.19)
[2023-06-04 11:43] LABS: Thyroid Stimulating Hormone 4.26 uIU/mL (0.465-4.68)
== END 2023-06-04 23:59 ==
LOC: LAB 09:48
PROVIDERS: PCP Internal Medicine; Visit Provider Nurse Practitioner Family
DX: E78.2 Mixed hyperlipidemia; I10 Essential (primary) hypertension; R06.00 Dyspnea, unspecified; K21.9 Gastro-esophageal reflux disease without esophagitis
CPT/HCPCS: 36415; 80048; 80061; 80076; 84439; 84443; 85025

== ENCOUNTER 2023-07-09 08:34 | Emergency (ER) | payer MEDICARE, MEDICAID, SELFPAY ==
[2023-07-09 08:34] VITALS: BP 111/67; PULSE 77; RESP 20; TEMP 36.6; O2SAT 96; BMI 30.9
[2023-07-09 09:00] VITALS: BP 117/64; PULSE 72; RESP 21; O2SAT 96
--- NOTE | 2023-07-09 09:06 | CT_ITS ---
FINAL REPORT TECHNIQUE: Thin section axial CT with sagittal reconstruction without contrast were obtained of the cervical spine. This study was performed with techniques to keep radiation doses as low as reasonably achievable, (ALARA). Individualized dose reduction techniques using automated exposure control or adjustment of mA and/or kV according to the patient's size were employed. CLINICAL HISTORY: fall COMPARISON: None FINDINGS: No fracture is seen. Alignment is normal. There is moderate diffuse degenerative disc disease and facet arthropathy. There is bony neuroforaminal narrowing at multiple levels in the mid and lower cervical spine. IMPRESSION: No fracture or malalignment Reviewed, Interpreted and Dictated by Ning Rojas MD Transcribed by Ling Ontiveros Authenticated and . [facility]
--- NOTE | 2023-07-09 09:06 | CT_ITS ---
FINAL REPORT CLINICAL HISTORY: fall COMPARISON: 03/30/2021 FINDINGS: There are old right parietal and left frontal cortical infarcts. There are small chronic lacunar infarcts of the left basal ganglia and thalamus. Advanced atrophy and chronic microvascular changes are noted. No cortical edema is present. There is no mass or hemorrhage. Ventricles are normal. Bone windows show no skull fracture or obvious obstructive lesion. IMPRESSION: Chronic changes without acute findings. Reviewed, Interpreted and Dictated by Ning Rojas MD Transcribed by Ling Ontiveros Authenticated and [facility]
--- NOTE | 2023-07-09 09:08 | ED_ITS ---
Discharge Plan Disposition Patient Disposition: [facility] Chief Complaint: Fall Prescriptions Prescriptions: No Action Tradjenta 5 mg tablet 5 mg PO DAILY levothyroxine 75 mcg tablet 75 mcg PO DAILY quetiapine 300 mg tablet extended release 24 hr 300 mg PO DAILY donepezil 10 mg tablet 10 mg PO HS venlafaxine 150 mg capsule,extended release 24hr 150 mg PO DAILY clopidogrel 75 mg tablet 75 mg PO DAILY acetaminophen [Tylenol Extra Strength] 500 mg tablet 1,000 mg PO Q6HP PRN (Reason: PAIN/FEVER) bisacodyl 10 mg suppository 10 mg SC DIRECTED PRN (Reason: Constipation) Rx Instructions: EVERY 3 DAYS NEEDED aspirin 81 mg tablet,chewable 81 mg PO DAILY memantine 10 mg tablet 10 mg PO BID loperamide 2 mg capsule 2 mg PO Q3HP PRN (Reason: Diarrhea) acetaminophen-codeine 300-30 mg tablet 1 tab PO BID PRN (Reason: Moderate Pain) Qty: 60 2RF guaifenesin [Robafen] 100 mg/5 mL liquid 200 mg PO QIDP PRN (Reason: cough) sennosides-docusate sodium [Senexon-S] 8.6-50 mg tablet 2 tab-cap PO DAILY PRN clonazepam 1 mg tablet 1 mg PO BID insulin glargine [Basaglar KwikPen U-100 Insulin] 100 unit/mL (3 mL) insulin pen 8 unit SQ HS Qty: 15 3RF atorvastatin 80 MG tablet 80 mg PO HS ondansetron HCl 4 MG tablet 4 mg PO Q6HP PRN (Reason: Nausea And Vomiting) melatonin 3 MG tablet 3 mg PO HS bisoprolol fumarate 5 MG tablet 5 mg PO DAILY 30 Days Qty: 30 0RF Referrals Follow up/Referrals: Provider,Referral, MD [Primary Care Provider] - See instructions Activity Restrictions/Add. Instructions Additional Instructions/Restrictions: At this time it was felt you are safe to be discharged home. If new or worsening symptoms please do not hesitate to return the emergency department. If symptoms persist please follow-up with your family doctor as you are able. Clinical Impressions Clinical Impression: Fall Discharge ED Provider: Ramon Mcguire General Adult HPI General Chief complaint: Fall Stated complaint: Fall Time Seen by Provider: 07/09/23 08:40 Mode of Arrival: EMS Source of Information: Patient, EMS and Medical Record Limitations: No Limitations Description of Symptoms (Recalled from ER Triage Doc. by RN): c/o bilateral hip, head and arm pain per long term nurse, nurse reports that pt fell out of bed again, no loc or bleeding. Pt states that she has upper back pain, no other pain at this time. PT states she was eating breakfast and was trying to get pick something up and the next thing she knows she is on the floor. History of Present Illness HPI narrative: Patient is a 77-year-old female with past medical history of multiple comorbidities who presents to the emergency department for evaluation of traumatic injury sustained in a fall at her long-term care facility. Patient fell out of her bed which is at a low height at baseline onto the ground striking her head, no loss of consciousness reported, patient is saying that her neck is a little sore however she does not hurt in any of her extremities, no other acute complaints at this time. Per chart review patient is not anticoagulated. 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 05/01/17 06/04/23 donepezil 10 mg tablet 10 mg PO HS DEMENTIA 05/01/17 06/04/23 loperamide 2 mg capsule 2 mg PO Q3HP PRN Diarrhea 05/01/17 06/04/23 memantine 10 mg tablet 10 mg PO BID DEMENTIA 05/01/17 06/04/23 venlafaxine 150 mg 150 mg PO DAILY MOOD 05/01/17 06/04/23 capsule,extended release 24 hr atorvastatin 80 mg tablet 80 mg PO HS Cholesterol 03/31/21 06/04/23 melatonin 3 mg tablet 3 mg PO HS SLEEP 03/31/21 06/04/23 ondansetron HCl 4 mg tablet 4 mg PO Q6HP PRN Nausea And 03/31/21 06/04/23 Vomiting linagliptin 5 mg tablet (Tradjenta) 5 mg PO DAILY 04/17/21 06/04/23 levothyroxine 75 mcg tablet 75 mcg PO DAILY 06/05/22 06/04/23 guaifenesin 100 mg/5 mL oral 200 mg PO QIDP PRN cough 02/13/23 06/04/23 liquid (Robafen) sennosides 8.6 mg-docusate sodium 2 tab-cap PO DAILY PRN 02/13/23 06/04/23 50 mg tablet (Senexon-S) clonazepam 1 mg tablet 1 mg PO BID 04/07/23 06/04/23 quetiapine 300 mg tablet,extended 300 mg PO DAILY 06/04/23 06/04/23 release 24 hr Previous Rx's Medication Instructions Recorded bisoprolol fumarate 5 mg tablet 5 mg PO DAILY 30 days #30 tabs 04/03/21 acetaminophen 300 mg-codeine 30 mg 1 tab PO BID PRN Moderate Pain #60 01/27/23 tablet tabs insulin glargine 100 unit/mL (3 8 unit (0.08 mL) SQ HS #15 mL 06/23/23 mL) subcutaneous pen (Basaglar KwikPen U-100 Insulin) Allergies Allergy/AdvReac Type Severity Reaction Status Date / Time diphenhydramine Allergy Unknown Verified 06/04/23 09:19 [From BENADRYL] [facility] Disclaimer: The information contained in this section may have been updated after the patient was seen, as this information can be updated by other users. Medical History Dementia Abnormal cardiovascular stress test Atypical angina Abnormal electrocardiogram [ECG] [EKG] Essential (primary) hypertension Syncope HCAP (healthcare-associated pneumonia) Obesity (BMI 30-39.9) Acute kidney injury Community acquired pneumonia Low back pain Compression fracture Chronic back pain Major depressive disorder, recurrent, unspecified Dizziness, nonspecific Pre-syncope Hypertension Sinusitis CVA (cerebral vascular accident) Hyperlipidemia, unspecified Type 2 diabetes mellitus without complications Unspecified cataract Social History Smoking Status: Never smoker second hand exposure: No alcohol intake: never substance use type: denies use current occupational status: retired Travel in the last 8 weeks: None household members: other housing: long term current occupational exposures/hazards: No caffeine: No ROS Obtained: Yes Systems reviewed as appropriate & no additional complaints except as documented Physical Exam General General appearance: alert and in no apparent distress Head Head exam: atraumatic and normocephalic Eye Eye exam: Present PERRL and EOMI ENT ENT exam: Present mucous membranes moist Neck Neck exam: Present normal inspection and tenderness (Diffuse cervical posterior) Chest Chest inspection: Present normal inspection and symmetric chest wall rise Respiratory Respiratory exam: Present normal lung sounds bilaterally; Absent respiratory distress Cardiovascular Cardiovascular exam: Present regular rate and normal rhythm Abdominal Exam Abdominal exam: Present soft; Absent tenderness Extremities Exam Extremities exam: Present normal inspection and other (No signs of trauma, no tenderness in all extremities, patient is able to range freely all joints.) Neurological Exam Neurological exam: Present alert; Absent motor sensory deficit Psychiatric Psychiatric exam: Present normal affect Skin Skin exam: Present warm and dry Medical Decision Making Paramjit Inquiry Pt receiving controlled substance: No Vital Signs: 07/09/23 08:34 07/09/23 09:00 Temperature 97.9 F Temperature Source Oral Pulse Rate 72 Pulse Rate [Left Radial] 77 Respiratory Rate 20 21 Blood Pressure 117/64 Blood Pressure [Right Arm] 111/67 Blood Pressure Mean [Right Arm] 81 Blood Pressure Source [Right Arm] Automatic Cuff Blood Pressure Position [Right Arm] Sitting 02 Sat by Pulse Oximetry 96 96 Oxygen Delivery Method Room Air Room Air Orders (Tests/Meds): ORDERS Category Date Time Status CT cervical spine wo con Stat Cat Scan 07/09/23 09:[address] head/brain wo con Stat Cat Scan 07/09/23 09:06 Completed Medical Decision Narrative: In summary patient is a 77-year-old female past medical history described above who presents emergency department for evaluation of traumatic injury sustained in a fall. Patient is hemodynamically stable nontoxic-appearing upon arrival, afebrile. Based on history and physical exam limited trauma survey will be conducted with noncontrasted CT scan of the head and cervical spine. Fingerstick will be obtained. CT imaging reviewed by me, no acute abnormality. Upon repeat evaluation patient was well-appearing, was cervical collar cleared. Patient is appropriate for discharge at this time and was given return precautions. Critical Care Critical Care Time Critical Care Time: No
--- NOTE | 2023-07-09 09:14 | PC.NURSE ---
GLUCOSE IS 128
[2023-07-09 10:00] VITALS: BP 113/68; RESP 18; O2SAT 96
[2023-07-09 10:30] VITALS: BP 123/64; PULSE 63; RESP 19; O2SAT 96
--- NOTE | 2023-07-09 10:57 | PC.NURSE ---
report called to [facility], spoke with [facility] nurse taking care of pt at that facility
--- NOTE | 2023-07-09 11:02 | PC.NURSE ---
[facility] notified of pt transfer back to [facility]
[2023-07-09 11:32] VITALS: BP 131/64; PULSE 69; RESP 20; TEMP 36.6; O2SAT 95
== END 2023-07-09 11:34 ==
PROVIDERS: Emergency Provider Emergency Medicine
DX: Z04.3 Encounter for examination and observation following other accident (principal); W06.XXXA Fall from bed, initial encounter
CPT/HCPCS: 70450; 72125; 99285

== ENCOUNTER 2023-08-17 16:28 | Emergency (ER) | payer MEDICARE, MEDICAID, SELFPAY ==
[2023-08-17 16:29] VITALS: BP 121/61; PULSE 73; RESP 16; TEMP 36.7; O2SAT 96; BMI 30.4
--- NOTE | 2023-08-17 16:31 | ED_ITS ---
<Statement entered by Ramon Mcguire MD - 08/17/23 21:22> I was consulted by the GLADIS, and we discussed the complexity of the problems being addressed. I approved the treatment and management plan for this patient's care in the emergency department, thus performing a substantive portion of the medical decision making. Ramon Mcguire MD Discharge Plan Disposition Patient Disposition: Home, Self-Care Condition: Good Prescriptions Prescriptions: No Action Tradjenta 5 mg tablet 5 mg PO DAILY levothyroxine 75 mcg tablet 75 mcg PO DAILY quetiapine 300 mg tablet extended release 24 hr 300 mg PO DAILY donepezil 10 mg tablet 10 mg PO HS venlafaxine 150 mg capsule,extended release 24hr 150 mg PO DAILY clopidogrel 75 mg tablet 75 mg PO DAILY acetaminophen [Tylenol Extra Strength] 500 mg tablet 1,000 mg PO Q6HP PRN (Reason: PAIN/FEVER) bisacodyl 10 mg suppository 10 mg NV DIRECTED PRN (Reason: Constipation) Rx Instructions: EVERY 3 DAYS NEEDED aspirin 81 mg tablet,chewable 81 mg PO DAILY memantine 10 mg tablet 10 mg PO BID loperamide 2 mg capsule 2 mg PO Q3HP PRN (Reason: Diarrhea) guaifenesin [Robafen] 100 mg/5 mL liquid 200 mg PO QIDP PRN (Reason: cough) sennosides-docusate sodium [Senexon-S] 8.6-50 mg tablet 2 tab-cap PO DAILY PRN clonazepam 1 mg tablet 1 mg PO BID insulin glargine [Basaglar KwikPen U-100 Insulin] 100 unit/mL (3 mL) insulin pen 8 unit SQ HS Qty: 15 3RF acetaminophen-codeine 300-30 mg tablet 1 tab PO BID PRN (Reason: Moderate Pain) Qty: 60 2RF calcium carbonate [Calcium Antacid] 200 mg calcium (500 mg) tablet,chewable 200 mg PO BID Qty: 180 3RF atorvastatin 80 MG tablet 80 mg PO HS ondansetron HCl 4 MG tablet 4 mg PO Q6HP PRN (Reason: Nausea And Vomiting) melatonin 3 MG tablet 3 mg PO HS bisoprolol fumarate 5 MG tablet 5 mg PO DAILY 30 Days Qty: 30 0RF Referrals Follow up/Referrals: Provider,Referral, MD [Primary Care Provider] - See instructions Activity Restrictions/Add. Instructions Additional Instructions/Restrictions: You may take Tylenol alternating every 4 hours with Motrin as needed for symptoms of pain. Follow-up with your PCP or return to ER for any worsening signs or symptoms. Clinical Impressions Clinical Impression: Lymphadenopathy Contusion of face Qualifiers: Encounter type: initial encounter Qualified Code(s): S00.83XA - Contusion of other part of head, initial encounter Accidental fall Qualifiers: Encounter type: initial encounter Qualified Code(s): W19.XXXA - Unspecified fall, initial encounter Instructions Patient Instructions: Contusion Discharge ED Provider: Ramon Mcguire General Adult HPI <COOPER Amaral - Last Filed: 08/17/23 19:35> General Chief complaint: Fall Stated complaint: Fall Time Seen by Provider: 08/17/23 16:31 History of Present Illness HPI narrative: Patient presents for evaluation after an accidental fall. Patient had a unwitnessed fall and notified staff of her fall. Patient is a resident of [facility] and she tells me that she was trying to reach for something on the ground and lost her balance and fell forward striking her face. She denies loss of consciousness neck pain back pain chest pain arm pain and has not no numbness or tingling of the extremities. She does have a sore forehead and has a visible hematoma. She denies chest pain shortness of breath fever chills hemoptysis hematochezia melena nausea vomit diarrhea. 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 05/01/17 07/28/23 donepezil 10 mg tablet 10 mg PO HS DEMENTIA 05/01/17 07/28/23 loperamide 2 mg capsule 2 mg PO Q3HP PRN Diarrhea 05/01/17 07/28/23 memantine 10 mg tablet 10 mg PO BID DEMENTIA 05/01/17 07/28/23 venlafaxine 150 mg 150 mg PO DAILY MOOD 05/01/17 07/28/23 capsule,extended release 24 hr atorvastatin 80 mg tablet 80 mg PO HS Cholesterol 03/31/21 07/28/23 melatonin 3 mg tablet 3 mg PO HS SLEEP 03/31/21 07/28/23 ondansetron HCl 4 mg tablet 4 mg PO Q6HP PRN Nausea And 03/31/21 07/28/23 Vomiting linagliptin 5 mg tablet (Tradjenta) 5 mg PO DAILY 04/17/21 07/28/23 levothyroxine 75 mcg tablet 75 mcg PO DAILY 06/05/22 07/28/23 guaifenesin 100 mg/5 mL oral 200 mg PO QIDP PRN cough 02/13/23 07/28/23 liquid (Robafen) sennosides 8.6 mg-docusate sodium 2 tab-cap PO DAILY PRN 02/13/23 07/28/23 50 mg tablet (Senexon-S) clonazepam 1 mg tablet 1 mg PO BID 04/07/23 07/28/23 quetiapine 300 mg tablet,extended 300 mg PO DAILY 06/04/23 07/28/23 release 24 hr Previous Rx's Medication Instructions Recorded bisoprolol fumarate 5 mg tablet 5 mg PO DAILY 30 days #30 tabs 04/03/21 insulin glargine 100 unit/mL (3 8 unit (0.08 mL) SQ HS #15 mL 06/23/23 mL) subcutaneous pen (Basaglar KwikPen U-100 Insulin) acetaminophen 300 mg-codeine 30 mg 1 tab PO BID PRN Moderate Pain #60 07/29/23 tablet tabs calcium carbonate (Calcium Antacid) 200 mg PO BID #180 tabs 08/05/23 Allergies Allergy/AdvReac Type Severity Reaction Status Date / Time diphenhydramine Allergy Unknown Verified 07/28/23 14:45 [From BENADRAFI] [facility] <COOPER Amaral - Last Filed: 08/17/23 19:35> [facility] Disclaimer: The information contained in this section may have been updated after the patient was seen, as this information can be updated by other users. Medical History Dementia Abnormal cardiovascular stress test Atypical angina Abnormal electrocardiogram [ECG] [EKG] Essential (primary) hypertension Syncope HCAP (healthcare-associated pneumonia) Obesity (BMI 30-39.9) Acute kidney injury Community acquired pneumonia Low back pain Compression fracture Chronic back pain Major depressive disorder, recurrent, unspecified Dizziness, nonspecific Pre-syncope Hypertension Sinusitis CVA (cerebral vascular accident) Hyperlipidemia, unspecified Type 2 diabetes mellitus without complications Unspecified cataract Social History Smoking Status: Former smoker second hand exposure: No alcohol intake: never substance use type: denies use current occupational status: retired Travel in the last 8 weeks: None household members: other housing: long term current occupational exposures/hazards: No caffeine: No <COOPER Amaral - Last Filed: 08/17/23 19:35> ROS Obtained: Yes Systems reviewed as appropriate & no additional complaints except as documented Physical Exam <COOPER Amaral - Last Filed: 08/17/23 19:35> General General appearance: alert and in no apparent distress Head Head exam: other (Patient has a hematoma in the center of the forehead and also more smaller 1 to the right side without any evidence of deformity) Eye Eye exam: Present normal appearance, PERRL and EOMI (No pain with extraocular movement) ENT ENT exam: Present normal exam and normal oropharynx Neck Neck exam: Present normal inspection; Absent tenderness Chest Chest inspection: Present normal inspection Respiratory Respiratory exam: Present normal lung sounds bilaterally Cardiovascular Cardiovascular exam: Present regular rate and normal rhythm Abdominal Exam Abdominal exam: Present soft and normal bowel sounds; Absent tenderness Extremities Exam Extremities exam: Present normal inspection; Absent tenderness Back Exam Back exam: Present normal inspection; Absent tenderness Neurological Exam Neurological exam: Present alert Psychiatric Psychiatric exam: Present normal affect and normal mood Medical Decision Making <COOPER Amaral - Last Filed: 08/17/23 19:35> Medical Records Medical records reviewed: Yes I reviewed the patient's medical records. Paramjit Inquiry Pt receiving controlled substance: No Vital Signs: 08/17/23 16:29 Temperature 98.0 F Temperature Source Oral Pulse Rate [Radial] 73 Respiratory Rate 16 Blood Pressure [Right Arm] 121/61 Blood Pressure Mean [Right Arm] 81 Blood Pressure Source [Right Arm] Automatic Cuff Blood Pressure Position [Right Arm] Supine 02 Sat by Pulse Oximetry 96 Oxygen Delivery Method Room Air Lab Data Lab results reviewed: Yes I reviewed the patient's lab results. Lab Results 08/17/23 16:47: WBC 9.4, RBC 4.51, Hgb 12.7, Hct 40.2, MCV 89.2, MCH 28.2, MCHC 31.6 L, RDW 15.7, Plt Count 282, MPV 7.9, Neut % (Auto) 54.4, Lymph % (Auto) 37.6, [place] % (Auto) 4.7, Eos % (Auto) 2.6, Baso % (Auto) 0.7, Neut # (Auto) 5.1, Lymph # (Auto) 3.5, [place] # (Auto) 0.4, Eos # (Auto) 0.2, Baso # (Auto) 0.1, Sodium 139, Potassium 4.3, Chloride 104, Carbon Dioxide 30, Anion Gap 9.3, BUN 25 H, Creatinine 1.40 H, Estimated Creat Clear 50, Estimated GFR 37 L, Est GFR ( Amer) 44 L, Glucose 133 H, Calcium 8.8, Magnesium 1.8, Total Bilirubin 0.2, AST 25, ALT 15, Alkaline Phosphatase 117, Troponin I < 0.01, Total Protein 5.9 L, Albumin 3.5, Globulin 2.4, Albumin/Globulin Ratio 1.5 08/17/23 16:47 08/17/23 16:47 Orders (Tests/Meds): ED MEDICATIONS Discontinued Medications Generic Name Dose Route Start Last Admin Trade Name Freq PRN Reason Stop Dose Admin Acetaminophen 1,000 mg 08/17/23 16:32 08/17/23 16:50 Acetaminophen 1,000mg/100ml Vial IV 08/17/23 16:33 1,000 mg ONCE ONE Administration Lactated Ringer's 1,000 mls @ 999 mls/hr 08/17/23 16:32 08/17/23 16:51 Lactated Ringer's 1000 Ml Bag IV 08/17/23 17:32 999 mls/hr .Q1H1M ONE Administration Iopamidol 180 ml 08/17/23 17:43 08/17/23 17:44 Iopamidol-370 (76%);100ml Bottle IV 08/17/23 17:44 180 ml ONCE ONE Administration Sodium Chloride 10 ml 08/17/23 17:43 08/17/23 17:44 Sodium Chloride 0.9% 10ml Syr (Rad Only) IV 08/17/23 17:44 10 ml ONCE ONE Administration Sodium Chloride 50 ml 08/17/23 17:43 08/17/23 17:44 0.9 % Sodium Chloride 50 Ml Vial IV 08/17/23 17:44 50 ml ONCE ONE Administration ORDERS Category Date Time Status CT angio abdomen pelvis Stat Cat Scan 08/17/23 16:[address] angio chest - dissection Stat Cat Scan 08/17/23 16:[address] angio head Stat Cat Scan 08/17/23 16:[address] angio neck Stat Cat Scan 08/17/23 16:[address] bony pelvis Stat Cat Scan 08/17/23 16:[address] cervical spine wo con Stat Cat Scan 08/17/23 16:[address] facial bones wo con Stat Cat Scan 08/17/23 16:[address] head/brain wo con Stat Cat Scan 08/17/23 16:[address] lumbar spine wo con Stat Cat Scan 08/17/23 16:[address] thoracic spine wo con Stat Cat Scan 08/17/23 16:33 Completed CBC w/Auto Diff [Complete Blood Count Auto Diff] Stat Lab 08/17/23 16:47 Completed CMP [Comprehensive Metabolic Panel] Stat Lab 08/17/23 16:47 Completed Magnesium Stat Lab 08/17/23 16:47 Completed Trop I [Troponin I] Stat Lab 08/17/23 16:47 Completed Troponin I Q3H Lab 08/17/23 19:45 Ordered Troponin I Q3H Lab 08/17/23 22:45 Ordered UA [Urinalysis and Microscopic] Stat Lab 08/17/23 16:32 Ordered Medical Decision Narrative: In summary patient is a 77-year-old female who presents to the emergency department for evaluation of a fall. Patient is hemodynamically stable upon arrival, afebrile. Physical exam is remarkable for a hematoma in the center of her forehead near the hairline and on the right side of her forehead. Differential diagnosis includes contusion versus skull fracture versus closed head injury versus C-spine injury etc. Initial workup will be conducted with hematologic labs and trauma scans. Initial interventions include Toradol Tylenol. Initial workup reviewed by me shows her hematologic labs are nonactionable and her imaging does not show any acute processes via my informal read. Upon repeat evaluation patient reports no worsening symptoms and is still mentating at her baseline.. Given this patient is appropriate for discharge back to [facility] Please follow-up with your PCP for further evaluation of the pelvic lymphadenopathy lymphadenopathy <Ramon Mcguire MD - Last Filed: 08/17/23 18:23> Vital Signs: 08/17/23 16:29 Temperature 98.0 F Temperature Source Oral Pulse Rate [Radial] 73 Respiratory Rate 16 Blood Pressure [Right Arm] 121/61 Blood Pressure Mean [Right Arm] 81 Blood Pressure Source [Right Arm] Automatic Cuff Blood Pressure Position [Right Arm] Supine 02 Sat by Pulse Oximetry 96 Oxygen Delivery Method Room Air Lab Data Lab Results 08/17/23 16:47: WBC 9.4, RBC 4.51, Hgb 12.7, Hct 40.2, MCV 89.2, MCH 28.2, MCHC 31.6 L, RDW 15.7, Plt Count 282, MPV 7.9, Neut % (Auto) 54.4, Lymph % (Auto) 37.6, [place] % (Auto) 4.7, Eos % (Auto) 2.6, Baso % (Auto) 0.7, Neut # (Auto) 5.1, Lymph # (Auto) 3.5, [place] # (Auto) 0.4, Eos # (Auto) 0.2, Baso # (Auto) 0.1, Sodium 139, Potassium 4.3, Chloride 104, Carbon Dioxide 30, Anion Gap 9.3, BUN 25 H, Creatinine 1.40 H, Estimated Creat Clear 50, Estimated GFR 37 L, Est GFR ( Amer) 44 L, Glucose 133 H, Calcium 8.8, Magnesium 1.8, Total Bilirubin 0.2, AST 25, ALT 15, Alkaline Phosphatase 117, Troponin I < 0.01, Total Protein 5.9 L, Albumin 3.5, Globulin 2.4, Albumin/Globulin Ratio 1.5 Orders (Tests/Meds): ED MEDICATIONS Discontinued Medications Generic Name Dose Route Start Last Admin Trade Name Freq PRN Reason Stop Dose Admin Acetaminophen 1,000 mg 08/17/23 16:32 08/17/23 16:50 Acetaminophen 1,000mg/100ml Vial IV 08/17/23 16:33 1,000 mg ONCE ONE Administration Lactated Ringer's 1,000 mls @ 999 mls/hr 08/17/23 16:32 08/17/23 16:51 Lactated Ringer's 1000 Ml Bag IV 08/17/23 17:32 999 mls/hr .Q1H1M ONE Administration Iopamidol 180 ml 08/17/23 17:43 08/17/23 17:44 Iopamidol-370 (76%);100ml Bottle IV 08/17/23 17:44 180 ml ONCE ONE Administration Sodium Chloride 10 ml 08/17/23 17:43 08/17/23 17:44 Sodium Chloride 0.9% 10ml Syr (Rad Only) IV 08/17/23 17:44 10 ml ONCE ONE Administration Sodium Chloride 50 ml 08/17/23 17:43 08/17/23 17:44 0.9 % Sodium Chloride 50 Ml Vial IV 08/17/23 17:44 50 ml ONCE ONE Administration ORDERS Category Date Time Status CT angio abdomen pelvis Stat Cat Scan 08/17/23 16:[address] angio chest - dissection Stat Cat Scan 08/17/23 16:[address] angio head Stat Cat Scan 08/17/23 16:[address] angio neck Stat Cat Scan 08/17/23 16:[address] bony pelvis Stat Cat Scan 08/17/23 16:[address] cervical spine wo con Stat Cat Scan 08/17/23 16:[address] facial bones wo con Stat Cat Scan 08/17/23 16:[address] head/brain wo con Stat Cat Scan 08/17/23 16:[address] lumbar spine wo con Stat Cat Scan 08/17/23 16:[address] thoracic spine wo con Stat Cat Scan 08/17/23 16:33 Completed CBC w/Auto Diff [Complete Blood Count Auto Diff] Stat Lab 08/17/23 16:47 Completed CMP [Comprehensive Metabolic Panel] Stat Lab 08/17/23 16:47 Completed Magnesium Stat Lab 08/17/23 16:47 Completed Trop I [Troponin I] Stat Lab 08/17/23 16:47 Completed Troponin I Q3H Lab 08/17/23 19:45 Ordered Troponin I Q3H Lab 08/17/23 22:45 Ordered UA [Urinalysis and Microscopic] Stat Lab 08/17/23 16:32 Ordered ECG Data Tracing #1: Independently interpreted by me, rate 72, rhythm is regular, axis is normal, no ST elevation in anatomical contiguous leads. QTc 476. Critical Care <COOPER Amaral - Last Filed: 08/17/23 19:35> Critical Care Time Critical Care Time: No
--- NOTE | 2023-08-17 16:33 | CT_ITS ---
PROCEDURE INFORMATION: Exam: CT Pelvis Without Contrast; Skeletal Exam date and time: 08/17/2023 5:39 PM Age: 77 years old Clinical indication: Injury or trauma; Fall; Blunt trauma (contusions or hematomas); Bilateral; Pelvic region; Additional info: Trauma, critical injury suspected TECHNIQUE: Imaging protocol: Computed tomography of the pelvis without contrast. Exam focused on the skeleton. Radiation optimization: All CT scans at this facility use at least one of these dose optimization techniques: automated exposure control; mA and/or kV adjustment per patient size (includes targeted exams where dose is matched to clinical indication); or iterative reconstruction. COMPARISON: CR XR HIP BI W PEL1V 03/05/2020 2:52 PM FINDINGS: Bones/joints: Diffuse osteopenia. No visible fracture or dislocation. Sacrum is unremarkable. Sacrococcygeal junction is intact. Femoral heads are well seated in the acetabula. Pubic rami are intact. Sacroiliac joints and pubic symphysis are congruent. Soft tissues: Unremarkable. Lymph nodes: Bilateral pelvic lymphadenopathy. IMPRESSION: 1. No visible fracture or dislocation. 2. Bilateral pelvic lymphadenopathy.
--- NOTE | 2023-08-17 16:33 | CT_ITS ---
PROCEDURE INFORMATION: Exam: CT Cervical Spine Without Contrast Exam date and time: 08/17/2023 5:32 PM Age: 77 years old Clinical indication: Injury or trauma; Fall; Blunt trauma; Additional info: Trauma, critical injury suspected TECHNIQUE: Imaging protocol: Computed tomography of the cervical spine without contrast. Radiation optimization: All CT scans at this facility use at least one of these dose optimization techniques: automated exposure control; mA and/or kV adjustment per patient size (includes targeted exams where dose is matched to clinical indication); or iterative reconstruction. COMPARISON: CT CERVICAL SPINE WO CON 07/09/2023 9:29 AM FINDINGS: Bones: No cervical spine fracture or listhesis. Moderate multilevel degenerative disc disease. Mild multilevel facet arthropathy. Mild multilevel neural foraminal stenosis. Mild C6-C7 spinal canal stenosis. Osteopenia. Lungs: Lung apices are normal. Soft tissues: Unremarkable. IMPRESSION: No cervical spine fracture or listhesis.
--- NOTE | 2023-08-17 16:33 | CT_ITS ---
PROCEDURE INFORMATION: Exam: CTA Chest With Contrast Exam date and time: 08/17/2023 5:47 PM Age: 77 years old Clinical indication: Injury or trauma; Fall; Blunt trauma (contusions or hematomas); Additional info: Trauma, critical injury suspected TECHNIQUE: Imaging protocol: Computed tomographic angiography of the chest with contrast. Exam focused on the arteries. 3D rendering (Not supervised by radiologist): MIP and/or 3D reconstructed images were created by the technologist. Radiation optimization: All CT scans at this facility use at least one of these dose optimization techniques: automated exposure control; mA and/or kV adjustment per patient size (includes targeted exams where dose is matched to clinical indication); or iterative reconstruction. Contrast material: ISO 370; Contrast volume: 80 ml; Contrast route: INTRAVENOUS (IV); COMPARISON: 1. CR XR CHEST PORTABLE 03/30/2021 9:50 AM 2. CR CXR2 XR chest AP 07/13/2017 9:51 PM 3. DX CXR2 XR chest AP 06/25/2017 1:21 PM FINDINGS: Pulmonary arteries: Normal. No pulmonary emboli. Aorta: Unremarkable. No aortic aneurysm. No aortic dissection. Lungs: Parenchymal consolidations at the bases could be on the basis of atelectasis but underlying infection is not completely excluded. There are scattered calcified granulomas in the lungs which most likely reflect prior granulomatous disease. Pleural spaces: Small right pleural effusion. Heart: Unremarkable. No cardiomegaly. No pericardial effusion. Lymph nodes: Unremarkable. No enlarged lymph nodes. Gallbladder and bile ducts: The patient is status post cholecystectomy. Pancreas: There is fatty replacement of the pancreas. Intraperitoneal space: Please see the dedicated interpretation of abdomen and pelvis for findings in that region. Bones/joints: Old inferolateral right rib fractures are noted. Soft tissues: Unremarkable. Other findings: Motion artifact mildly limits evaluation. IMPRESSION: 1. No acute traumatic injury is identified. 2. Small right pleural effusion. 3. Parenchymal consolidations at the bases could be on the basis of atelectasis but underlying infection is not completely excluded. 4. Please see the dedicated interpretation of abdomen and pelvis for findings in that region.
--- NOTE | 2023-08-17 16:33 | CT_ITS ---
PROCEDURE INFORMATION: Exam: CTA Neck With Contrast Exam date and time: 08/17/2023 5:42 PM Age: 77 years old Clinical indication: Injury or trauma; Fall; Blunt trauma; Head; Additional info: Trauma, critical injury suspected TECHNIQUE: Imaging protocol: Computed tomographic angiography of the neck with contrast. Exam focused on the cervical segments of the vasculature. 3D rendering (Not supervised by radiologist): MIP and/or 3D reconstructed images were created by the technologist. Radiation optimization: All CT scans at this facility use at least one of these dose optimization techniques: automated exposure control; mA and/or kV adjustment per patient size (includes targeted exams where dose is matched to clinical indication); or iterative reconstruction. Contrast material: ISO 370; Contrast volume: 100 ml; Contrast route: INTRAVENOUS (IV); COMPARISON: 1. CT CERVICAL SPINE WO CON 08/17/2023 5:[address] CERVICAL SPINE WO CON 07/09/2023 9:29 AM FINDINGS: Right common carotid artery: There is atherosclerotic disease of the right carotid bulb without significant stenosis of the internal carotid artery. Right internal carotid artery: No stenosis of the extracranial segment. No dissection or occlusion. Right external carotid artery: No occlusion or stenosis of the origin. Left common carotid artery: There is atherosclerotic disease of the left carotid bulb without significant stenosis of the internal carotid artery. Left internal carotid artery: No stenosis of the extracranial segment. No dissection or occlusion. Left external carotid artery: No occlusion or stenosis of the origin. Right vertebral artery: No stenosis. No dissection or occlusion. Left vertebral artery: No stenosis. No dissection or occlusion. Aorta: Ectatic but nonaneurysmal ascending thoracic aorta. Lymph nodes: There are mildly prominent but nonenlarged and nonspecific retroperitoneal nodes. Mildly prominent nodes in the central mesentery, nonspecific. Soft tissues: Normal. No significant soft tissue swelling. Bones/joints: No acute fracture. IMPRESSION: Atherosclerotic disease of the carotid bulbs without significant stenosis of the internal carotid arteries. No evidence for acute arterial injury. REFERENCES: NASCET CRITERIA. The degree of stenosis in the cervical segment of the internal carotid artery is based on NASCET criteria. Normal is no stenosis. Mild is less than 50% stenosis. Moderate is 50-69% stenosis. Severe is 70% to 99% stenosis. Total occlusion is no detectable patent lumen.
--- NOTE | 2023-08-17 16:33 | CT_ITS ---
PROCEDURE INFORMATION: Exam: CT Thoracic Spine Without Contrast Exam date and time: 08/17/2023 5:34 PM Age: 77 years old Clinical indication: Injury or trauma; Fall; Blunt trauma (contusions or hematomas); Additional info: Trauma, critical injury suspected TECHNIQUE: Imaging protocol: Computed tomography of the thoracic spine without contrast. Radiation optimization: All CT scans at this facility use at least one of these dose optimization techniques: automated exposure control; mA and/or kV adjustment per patient size (includes targeted exams where dose is matched to clinical indication); or iterative reconstruction. COMPARISON: CT CERVICAL SPINE WO CON 08/17/2023 5:32 PM FINDINGS: Bones/joints: Diffuse osteopenia. There is preservation of vertebral alignment. There is preservation of vertebral body heights. Anterior flowing osteophytes. Facet joints are aligned. No acute fracture. Soft tissues: Unremarkable. Lungs: Bibasilar subsegmental atelectasis noted. Pleural spaces: Small right pleural effusion. Heart: Cardiomegaly attributable to multi cardiac chamber enlargement. IMPRESSION: No acute fracture. No traumatic subluxation.
--- NOTE | 2023-08-17 16:33 | CT_ITS ---
PROCEDURE INFORMATION: Exam: CT Maxillofacial Without Contrast Exam date and time: 08/17/2023 5:28 PM Age: 77 years old Clinical indication: Injury or trauma; Fall; Blunt trauma (contusions or hematomas); Forehead; Additional info: Trauma, critical injury suspected TECHNIQUE: Imaging protocol: Computed tomography of the face without contrast. Radiation optimization: All CT scans at this facility use at least one of these dose optimization techniques: automated exposure control; mA and/or kV adjustment per patient size (includes targeted exams where dose is matched to clinical indication); or iterative reconstruction. COMPARISON: CT HEAD/BRAIN WO CON 07/09/2023 9:27 AM FINDINGS: Orbital cavities: Orbits are normal. Globes are unremarkable. Paranasal sinuses: Mild right maxillary sinus mucosal thickening. Bones: No acute fracture. Soft tissues: Mild right frontal scalp soft tissue swelling. IMPRESSION: Mild right frontal scalp soft tissue swelling. No fractures.
--- NOTE | 2023-08-17 16:33 | CT_ITS ---
PROCEDURE INFORMATION: Exam: CTA Abdomen and Pelvis With Contrast Exam date and time: 08/17/2023 5:47 PM Age: 77 years old Clinical indication: Injury or trauma; Fall; Blunt trauma; Other: Abd; Additional info: Trauma, critical injury suspected TECHNIQUE: Imaging protocol: Computed tomographic angiography of the abdomen and pelvis with contrast. Exam focused on the arteries. 3D rendering (Not supervised by radiologist): MIP and/or 3D reconstructed images were created by the technologist. Radiation optimization: All CT scans at this facility use at least one of these dose optimization techniques: automated exposure control; mA and/or kV adjustment per patient size (includes targeted exams where dose is matched to clinical indication); or iterative reconstruction. Contrast material: ISO 370; Contrast volume: 80 ml; Contrast route: INTRAVENOUS (IV); COMPARISON: CT BONY PELVIS 08/17/2023 5:39 PM FINDINGS: Tubes, catheters and devices: Status post atrial septal device closure Lungs: Bibasilar subsegmental atelectasis noted. no pulmonary contusion or laceration. No suspicious pulmonary lesions. Pleural spaces: Small right pleural effusion. Pulmonary arteries: No evidence of filling defects to suggest pulmonary emboli. Aorta: Click RY normal ascending aorta measures 4 point 3.6 cm. No intraluminal flap.Cardiomegaly attributable to multi cardiac chamber enlargement. Celiac trunk and mesenteric arteries: No occlusion or significant stenosis. Renal arteries: No occlusion or significant stenosis. Right iliac arteries: No occlusion or significant stenosis. Left iliac arteries: No occlusion or significant stenosis. Liver: No focal hepatic lesions. Gallbladder and bile ducts: There has been a cholecystectomy. Pancreas: No peripancreatic fluid stranding. No main pancreatic ductal dilation. Spleen: No splenomegaly. Adrenal glands: The adrenal glands are normal. Kidneys and ureters: Nephrograms are symmetric. No nephrolithiasis or hydroureteronephrosis on either side. No solid lesions. There is a simple cyst in the right kidney. Stomach and bowel: No bowel wall thickening or distention. Scattered colonic diverticula without acute inflammatory change. Appendix: No evidence of appendicitis. Intraperitoneal space: There is no evidence of free intraperitoneal or pelvic fluid. Lymph nodes: No evidence of mediastinal or hilar lymphadenopathy. Indeterminate retroperitoneal and pelvic lymphadenopathy. Urinary bladder: Unremarkable. No mass. Reproductive: Unremarkable as visualized. Bones/joints: No acute osseous abnormality. No acute rib fracture. Soft tissues: Unremarkable. Other findings: The RV/LV ratio is less than 1. IMPRESSION: 1. No acute traumatic injury in the chest abdomen or pelvis. 2. No evidence of filling defects to suggest pulmonary emboli. 3. Indeterminate retroperitoneal and pelvic lymphadenopathy.
--- NOTE | 2023-08-17 16:33 | CT_ITS ---
PROCEDURE INFORMATION: Exam: CT Lumbar Spine Without Contrast Exam date and time: 08/17/2023 5:36 PM Age: 77 years old Clinical indication: Injury or trauma; Fall; Blunt trauma (contusions or hematomas); Additional info: Trauma, critical injury suspected TECHNIQUE: Imaging protocol: Computed tomography of the lumbar spine without contrast. Radiation optimization: All CT scans at this facility use at least one of these dose optimization techniques: automated exposure control; mA and/or kV adjustment per patient size (includes targeted exams where dose is matched to clinical indication); or iterative reconstruction. COMPARISON: CT LUMBAR SPINE WO CON 03/05/2020 3:45 PM FINDINGS: Bones/joints: Anterolisthesis of L4 over L5, likely degenerative. There is preservation of vertebral body heights. Facet joints are aligned. No acute fracture. L1-L2: No significant disc bulge or herniation. No severe spinal canal stenosis. No significant neural foraminal narrowing. L2-L3: No significant disc bulge or herniation. No severe spinal canal stenosis. No significant neural foraminal narrowing. L3-L4: No significant disc bulge or herniation. No severe spinal canal stenosis. No significant neural foraminal narrowing. L4-L5: :Diffuse disc bulge and facet arthropathy noted. There is mild spinal canal stenosis. There is moderate bilateral neural foraminal narrowing. L5-S1: No significant spinal canal stenosis. There is moderate bilateral neural foraminal narrowing. Lymph nodes: There are nonspecific prominent retroperitoneal lymph nodes. Soft tissues: Unremarkable. IMPRESSION: 1. No acute fracture. No traumatic subluxation. 2. There are nonspecific prominent retroperitoneal lymph nodes.
--- NOTE | 2023-08-17 16:33 | CT_ITS ---
PROCEDURE INFORMATION: Exam: CTA Head With Contrast, Arteriography Exam date and time: 08/17/2023 5:42 PM Age: 77 years old Clinical indication: Injury or trauma; Fall; Blunt trauma; Head; Additional info: Trauma, critical injury suspected TECHNIQUE: Imaging protocol: Computed tomographic angiography of the head with contrast. Exam focused on the arteries. 3D rendering (Not supervised by radiologist): MIP and/or 3D reconstructed images were created by the technologist. Radiation optimization: All CT scans at this facility use at least one of these dose optimization techniques: automated exposure control; mA and/or kV adjustment per patient size (includes targeted exams where dose is matched to clinical indication); or iterative reconstruction. Contrast material: ISO 370; Contrast volume: 100 ml; Contrast route: INTRAVENOUS (IV); COMPARISON: 1. CT HEAD/BRAIN WO CON 08/17/2023 5:42 PM 2. MR ANGIO HEAD WO CON 01/16/2021 4:00 PM FINDINGS: ANTERIOR CIRCULATION: Right internal carotid artery: Intracranial segment is patent with no significant stenosis. No aneurysm. Right middle cerebral artery: No occlusion or significant stenosis. No aneurysm. Right anterior cerebral artery: No occlusion or significant stenosis. No aneurysm. Left internal carotid artery: Intracranial segment is patent with no significant stenosis. No aneurysm. Left middle cerebral artery: No occlusion or significant stenosis. No aneurysm. Left anterior cerebral artery: No occlusion or significant stenosis. No aneurysm. POSTERIOR CIRCULATION: Right vertebral artery: No occlusion or significant stenosis. No aneurysm. Left vertebral artery: No occlusion or significant stenosis. No aneurysm. Basilar artery: No occlusion or significant stenosis. No aneurysm. Right posterior cerebral artery: No occlusion or significant stenosis. No aneurysm. Left posterior cerebral artery: No occlusion or significant stenosis. No aneurysm. Brain: The brain parenchyma appears unremarkable, with no signs of acute intracranial hemorrhage or significant mass effect. There is hypodensity in the subcortical and periventricular white matter which is technically nonspecific but most often related to chronic microvascular disease. Cerebral ventricles: Mild ventricular enlargement consistent with age-related cerebral atrophy is noted. Paranasal sinuses: Paranasal sinuses show age-appropriate mucosal thickening. Bones/joints: There are no skull fractures or bony lesions. Soft tissues: Unremarkable. IMPRESSION: 1. Presumably age-related and chronic changes without acute intracranial abnormality. 2. No acute intracranial vascular anomaly.
--- NOTE | 2023-08-17 16:33 | CT_ITS ---
PROCEDURE INFORMATION: Exam: CT Head Without Contrast Exam date and time: 08/17/2023 5:42 PM Age: 77 years old Clinical indication: Injury or trauma; Fall; Blunt trauma (contusions or hematomas); Additional info: Trauma, critical injury suspected TECHNIQUE: Imaging protocol: Computed tomography of the head without contrast. Radiation optimization: All CT scans at this facility use at least one of these dose optimization techniques: automated exposure control; mA and/or kV adjustment per patient size (includes targeted exams where dose is matched to clinical indication); or iterative reconstruction. COMPARISON: CT ANGIO HEAD 08/17/2023 5:42 PM FINDINGS: Brain: Left posterior frontal lobe and right parietal lobe encephalomalacia. Old left basal ganglia lacunar infarct. Old left caudate head lacunar infarct. Moderate supratentorial white matter hypodensities are likely the sequela of chronic small vessel ischemic disease. Moderate atrophy. No hemorrhage, edema, or mass effect. Cerebral ventricles: Ventriculomegaly secondary to atrophy is unchanged. Paranasal sinuses: Visualized sinuses are unremarkable. No fluid levels. Mastoid air cells: Visualized mastoid air cells are well aerated. Bones: Unremarkable. No acute fracture. Soft tissues: Right frontal scalp soft tissue swelling. IMPRESSION: 1. Right frontal scalp soft tissue swelling. 2. No acute intracranial findings. 3. Chronic changes are unchanged.
[2023-08-17] MEDS: ACETAMINOPHEN 1,000MG/100ML VIAL 1000 MG IV (16:50)
[2023-08-17] MEDS: LACTATED RINGERS 1000ML 1,000 ML 999 ML IV (16:51)
[2023-08-17 17:18] LABS: Basophils # 0.1 K/mm3 (0-0.2); Basophils % 0.7 % (0.1-2.0); Eosinophils # 0.2 K/mm3 (0.0-0.4); Eosinophils % 2.6 % (0.1-12.0); Hematocrit 40.2 % (37.0-47.0); Hemoglobin 12.7 g/dL (12.2-16.2); Lymphocytes # 3.5 K/mm3 (0.7-4.5); Lymphocytes % 37.6 % (10-50); Mean Corpuscular HGB Conc 31.6 g/dL (31.8-35.4); Mean Corpuscular Hemoglobin 28.2 pg (27.0-31.2); Mean Corpuscular Volume 89.2 fl (81-99); Mean Platelet Volume 7.9 fl (7.4-10.4); Monocytes # 0.4 K/mm3 (0.1-1.0); Monocytes % 4.7 % (1.7-9.3); Neutrophils # 5.1 K/mm3 (1.8-7.8); Neutrophils % 54.4 % (37.0-80.0); Platelet Count 282 K/mm3 (142-424); Red Blood Count 4.51 M/mm3 (4.20-5.40); Red Cell Distribution Width 15.7 % (11.5-17.5); White Blood Count 9.4 K/mm3 (4.8-10.8)
[2023-08-17 17:23] LABS: Chloride 104 mmol/L (98-107); Sodium 139 mmol/L (136-145)
[2023-08-17 17:24] LABS: Potassium 4.3 mmoL/L (3.5-5.1)
[2023-08-17 17:26] LABS: Alanine Aminotransferase 15 U/L (12-78); Alkaline Phosphatase 117 U/L (38-126); Anion Gap 9.3 mEq/L (5-15); Aspartate Amino Transferase 25 U/L (14-36); Bilirubin,Total 0.2 mg/dl (0.2-1.3); Blood Urea Nitrogen 25 mg/dl (7-17); Calcium 8.8 mg/dl (8.4-10.2); Carbon Dioxide 30 mmol/L (22.0-30.0); Creatinine Clearance Estimated 50 mL/min (50-200); Estimated Glomerular Filt Rate 37 ml/min (>60); GFR (African American) 44 ML/MIN (>60); Glucose 133 mg/dl (74-100)
[2023-08-17 17:27] LABS: Albumin Level 3.5 g/dl (3.5-5.0); Albumin/Globulin Ratio 1.5 (1.1-1.8); Globulin 2.4 g/dL (1.3-3.2); Magnesium 1.8 mg/dl (1.6-2.3); Total Protein,Serum 5.9 g/dl (6.3-8.2)
[2023-08-17 17:44] LABS: Troponin I < 0.01 ng/ml (0.00-0.034)
[2023-08-17] MEDS: 0.9 % SODIUM CHLORIDE 50 ML VIAL IV (17:44)
[2023-08-17] MEDS: SODIUM CHLORIDE 0.9% 10ML SYR (RAD ONLY) 10 ML IV (17:44)
[2023-08-17] MEDS: IOPAMIDOL-370 (76%);100ML BOTTLE 180 ML IV (17:44)
--- NOTE | 2023-08-17 17:59 | ECG_ITS ---
APPROVED REPORT Exam: Resting ECG HR:72 bpm ECG Measurements Heart Rate 72 AXES ME 192 P 42 QRSd 95 QRS 55 QT 452 T 63 QTc 476 Conclusion SINUS RHYTHM WITH SINUS ARRHYTHMIA LOW QRS VOLTAGE IN EXTREMITY LEADS [QRS DEFLECTION < 0.5 mV IN LIMB LEADS] PROLONGED QT INTERVAL ABNORMAL ECG Electronically signed by : ENZO DELACRUZ, 08/17/2023 22:28:42
--- NOTE | 2023-08-17 19:09 | PC.NURSE ---
Report called to Courtney Miranda RN at [facility].
--- NOTE | 2023-08-17 19:40 | PC.NURSE ---
Pt is resting at this time. Pt is calling out however when this RN goes into the room, she states she doesn't want or need anything. Pt is waiting for transport back to [place].
--- NOTE | 2023-08-17 19:45 | PC.NURSE ---
After passing a swallow test, pt is eating a popsicle and drinking water.
[2023-08-17 20:58] VITALS: BP 161/80; PULSE 80; RESP 18; TEMP 36.6; O2SAT 95
== END 2023-08-17 21:00 | disposition home or self-care (01) ==
PROVIDERS: Physician Assistant; Emergency Provider Emergency Medicine
DX: S00.83XA Contusion of other part of head, initial encounter (principal); R59.0 Localized enlarged lymph nodes; W19.XXXA Unspecified fall, initial encounter; E11.65 Type 2 diabetes mellitus with hyperglycemia; I10 Essential (primary) hypertension; E78.5 Hyperlipidemia, unspecified; Z79.4 Long term (current) use of insulin; Z79.84 Long term (current) use of oral hypoglycemic drugs
CPT/HCPCS: 70450; 70486; 70496; 70498; 71275; 72125; 72128; 72131; 72192; 74174; 80053; 83735; 84484; 85025; 93005; 96361; 96374; 99285; J0131; J7120; Q9967

== ENCOUNTER 2023-08-19 09:43 | Observation (INO) | payer MEDICARE, MEDICAID, SELFPAY ==
[2023-08-19] VITALS (12 sets, daily range): BP systolic 110–167; BP diastolic 59–91; PULSE 62–95; RESP 14–21; TEMP 36.3–36.7; O2SAT 92–97; BMI 31.3
[2023-08-19] MEDS: NALOXONE 2MG/2ML SYRINGE 0.400000000000000022 MG IV (10:20)
--- NOTE | 2023-08-19 10:26 | CT_ITS ---
FINAL REPORT CLINICAL HISTORY: [facility] COMPARISON: 08/17/2023 FINDINGS: Axial images of the head were obtained without contrast. Coronal reformatted images were also obtained. This study was performed with techniques to keep radiation doses as low as reasonably achievable (ALARA). Individualized dose reduction techniques using automated exposure control or adjustment of mA and/or kV according to the patient's size were employed. There is generalized age-appropriate atrophy. Periventricular low-attenuation areas are seen consistent with moderate chronic ischemic changes. There is no evidence of intracranial hemorrhage or mass. There is a chronic left periventricular lacunar infarct. Right parietal encephalomalacia is identified. Findings are stable since previous. There is no evidence of acute infarct. There is no evidence of shift of the midline structures. No skull abnormality is seen on the bone window images. IMPRESSION: Atrophy and moderate periventricular chronic ischemic changes. No acute intracranial abnormality identified. Reviewed, Interpreted and Dictated by Epifanio Ayala III, MD Transcribed by Sandra Rodriguez Authenticated and [facility]
--- NOTE | 2023-08-19 10:28 | XR_ITS ---
FINAL REPORT CLINICAL HISTORY: dyspnea FINDINGS: SINGLE-VIEW CHEST The patient is rotated to the right. There is cardiomegaly. The mediastinum is normal. There is bibasilar atelectasis or pneumonia. There is no pneumothorax. IMPRESSION: Bibasilar atelectasis or pneumonia. Reviewed, Interpreted and Dictated by Epifanio Ayala III, MD Transcribed by Sandra Rodriguez Authenticated and . [facility]
--- NOTE | 2023-08-19 10:35 | ECG_ITS ---
APPROVED REPORT Exam: Resting ECG HR:73 bpm ECG Measurements Heart Rate 73 AXES [place] 129 P 46 QRSd 93 QRS 68 QT 432 T 90 QTc 457 Conclusion SINUS RHYTHM WITH FREQUENT VENTRICULAR PREMATURE COMPLEXES ABNORMAL RHYTHM ECG UNCONFIRMED REPORT Electronically signed by : Noel Cano, 08/19/2023 15:38:59
[2023-08-19] MEDS: RINGERS SOLUTION,LACTATED 500 ML 999 ML IV (10:44)
[2023-08-19 10:45] LABS: Basophils # 0.1 K/mm3 (0-0.2); Basophils % 0.6 % (0.1-2.0); Eosinophils # 0.2 K/mm3 (0.0-0.4); Eosinophils % 1.4 % (0.1-12.0); Hematocrit 42.2 % (37.0-47.0); Hemoglobin 13.2 g/dL (12.2-16.2); Lymphocytes # 2.4 K/mm3 (0.7-4.5); Lymphocytes % 20.7 % (10-50); Mean Corpuscular HGB Conc 31.3 g/dL (31.8-35.4); Mean Corpuscular Hemoglobin 28.2 pg (27.0-31.2); Mean Corpuscular Volume 90.4 fl (81-99); Mean Platelet Volume 7.4 fl (7.4-10.4); Monocytes # 0.4 K/mm3 (0.1-1.0); Monocytes % 3.7 % (1.7-9.3); Neutrophils # 8.5 K/mm3 (1.8-7.8); Neutrophils % 73.7 % (37.0-80.0); Platelet Count 257 K/mm3 (142-424); Red Blood Count 4.67 M/mm3 (4.20-5.40); Red Cell Distribution Width 15.6 % (11.5-17.5); White Blood Count 11.6 K/mm3 (4.8-10.8)
[2023-08-19 10:45] LABS: VBG Base Excess -0.4 mmol/L (-2.4-2.3); VBG HCO3 25.2 mmol/L (23-30); VBG Oxygen Saturation 73.4 % (50-70); VBG PCO2 46.2 mmol/L (35-51); VBG PH 7.35 mmol/L (7.31-7.41); VBG PO2 34.7 mmol/L (28-40); VBG Total CO2 26.6 mmol/L (23-27)
[2023-08-19] MEDS: LACTATED RINGERS 1000ML 500 ML 999 ML IV (10:45)
[2023-08-19 10:46] LABS: Chloride 104 mmol/L (98-107); Potassium 4.3 mmoL/L (3.5-5.1); Sodium 140 mmol/L (136-145)
--- NOTE | 2023-08-19 10:46 | HMH.EDGENADL ---
Discharge Plan Disposition Patient Disposition: Admitted Chief Complaint: Weakness Prescriptions Prescriptions: No Action Tradjenta 5 mg tablet 5 mg PO DAILY levothyroxine 75 mcg tablet 75 mcg PO DAILY quetiapine 300 mg tablet extended release 24 hr 300 mg PO DAILY donepezil 10 mg tablet 10 mg PO HS venlafaxine 150 mg capsule,extended release 24hr 150 mg PO DAILY clopidogrel 75 mg tablet 75 mg PO DAILY acetaminophen [Tylenol Extra Strength] 500 mg tablet 1,000 mg PO Q6HP PRN (Reason: PAIN/FEVER) bisacodyl 10 mg suppository 10 mg LA DIRECTED PRN (Reason: Constipation) Rx Instructions: EVERY 3 DAYS NEEDED aspirin 81 mg tablet,chewable 81 mg PO DAILY memantine 10 mg tablet 10 mg PO BID loperamide 2 mg capsule 2 mg PO Q3HP PRN (Reason: Diarrhea) guaifenesin [Robafen] 100 mg/5 mL liquid 200 mg PO QIDP PRN (Reason: cough) sennosides-docusate sodium [Senexon-S] 8.6-50 mg tablet 2 tab-cap PO DAILY PRN clonazepam 1 mg tablet 1 mg PO BID insulin glargine [Basaglar KwikPen U-100 Insulin] 100 unit/mL (3 mL) insulin pen 8 unit SQ HS Qty: 15 3RF acetaminophen-codeine 300-30 mg tablet 1 tab PO BID PRN (Reason: Moderate Pain) Qty: 60 2RF calcium carbonate [Calcium Antacid] 200 mg calcium (500 mg) tablet,chewable 200 mg PO BID Qty: 180 3RF atorvastatin 80 MG tablet 80 mg PO HS ondansetron HCl 4 MG tablet 4 mg PO Q6HP PRN (Reason: Nausea And Vomiting) melatonin 3 MG tablet 3 mg PO HS bisoprolol fumarate 5 MG tablet 5 mg PO DAILY 30 Days Qty: 30 0RF Referrals Follow up/Referrals: Provider,Referral, MD [Primary Care Provider] - See instructions Clinical Impressions Clinical Impression: Acute encephalopathy, Acute UTI Instructions Patient Instructions: DI for Altered Mental Status Discharge ED Provider: Clifton [facility] Adult HPI General Chief complaint: Weakness Stated complaint: AMS Time Seen by Provider: 08/19/23 10:10 Mode of Arrival: EMS Source of Information: Patient and EMS Limitations: No Limitations Description of Symptoms (Recalled from ER Triage Doc. by RN): 77 yo F presents to ED via EMS for lethargy. pt does not have any complaints. pt reports that she is just sleepy. pt is alert and orientated. History of Present Illness HPI narrative: Patient is a 77-year-old female presents today with altered mental status. She is very lethargic and somnolent and history is limited from her. She was recently in the emergency department after a fall and had obando traumatic scans which were unremarkable. detention states that she has been lethargic off of her baseline today. She is able to answer some questions and denies any specific complaints. She is on aspirin and Plavix. There is no evidence of any hemorrhaging on her head CT scan recently. No other specific complaints from intermediate or EMS. Related Data Home Medications Medication Instructions Recorded Confirmed acetaminophen 500 mg tablet 1,000 mg PO Q6HP PRN PAIN/FEVER 05/01/17 07/28/23 (Tylenol Extra Strength) aspirin 81 mg chewable tablet 81 mg PO DAILY Heart disease 05/01/17 07/28/23 bisacodyl 10 mg rectal suppository 10 mg LA DIRECTED PRN 05/01/17 07/28/23 Constipation clopidogrel 75 mg tablet 75 mg PO DAILY PLATELET INHIBITOR 05/01/17 07/28/23 donepezil 10 mg tablet 10 mg PO HS DEMENTIA 05/01/17 07/28/23 loperamide 2 mg capsule 2 mg PO Q3HP PRN Diarrhea 05/01/17 07/28/23 memantine 10 mg tablet 10 mg PO BID DEMENTIA 05/01/17 07/28/23 venlafaxine 150 mg 150 mg PO DAILY MOOD 05/01/17 07/28/23 capsule,extended release 24 hr atorvastatin 80 mg tablet 80 mg PO HS Cholesterol 03/31/21 07/28/23 melatonin 3 mg tablet 3 mg PO HS SLEEP 03/31/21 07/28/23 ondansetron HCl 4 mg tablet 4 mg PO Q6HP PRN Nausea And 03/31/21 07/28/23 Vomiting linagliptin 5 mg tablet (Tradjenta) 5 mg PO DAILY 04/17/21 07/28/23 levothyroxine 75 mcg tablet 75 mcg PO DAILY 06/05/22 07/28/23 guaifenesin 100 mg/5 mL oral 200 mg PO QIDP PRN cough 02/13/23 07/28/23 liquid (Robafen) sennosides 8.6 mg-docusate sodium 2 tab-cap PO DAILY PRN 02/13/23 07/28/23 50 mg tablet (Senexon-S) clonazepam 1 mg tablet 1 mg PO BID 04/07/23 07/28/23 quetiapine 300 mg tablet,extended 300 mg PO DAILY 06/04/23 07/28/23 release 24 hr Previous Rx's Medication Instructions Recorded bisoprolol fumarate 5 mg tablet 5 mg PO DAILY 30 days #30 tabs 04/03/21 insulin glargine 100 unit/mL (3 8 unit (0.08 mL) SQ HS #15 mL 06/23/23 mL) subcutaneous pen (Basaglar KwikPen U-100 Insulin) acetaminophen 300 mg-codeine 30 mg 1 tab PO BID PRN Moderate Pain #60 07/29/23 tablet tabs calcium carbonate (Calcium Antacid) 200 mg PO BID #180 tabs 08/05/23 Allergies Allergy/AdvReac Type Severity Reaction Status Date / Time diphenhydramine Allergy Unknown Verified 07/28/23 14:45 [From [facility]] [facility] Disclaimer: The information contained in this section may have been updated after the patient was seen, as this information can be updated by other users. Medical History Dementia Abnormal cardiovascular stress test Atypical angina Abnormal electrocardiogram [ECG] [EKG] Essential (primary) hypertension Syncope HCAP (healthcare-associated pneumonia) Obesity (BMI 30-39.9) Acute kidney injury Community acquired pneumonia Low back pain Compression fracture Chronic back pain Major depressive disorder, recurrent, unspecified Dizziness, nonspecific Pre-syncope Hypertension Sinusitis CVA (cerebral vascular accident) Hyperlipidemia, unspecified Type 2 diabetes mellitus without complications Unspecified cataract Social History Smoking Status: Former smoker second hand exposure: No alcohol intake: never substance use type: denies use current occupational status: retired Travel in the last 8 weeks: None household members: other housing: intermediate current occupational exposures/hazards: No caffeine: No ROS Obtained: Yes All systems reviewed & no additional complaints except as documented Physical Exam General General appearance: lethargic Head Head exam: other (Ecchymosis on the frontal aspect of her forehead) Eye Eye exam: Present other (Pinpoint pupils) Respiratory Respiratory exam: Present normal lung sounds bilaterally; Absent respiratory distress Cardiovascular Cardiovascular exam: Present regular rate and normal rhythm Abdominal Exam Abdominal exam: Present soft; Absent distention or tenderness Neurological Exam Neurological exam: Present alert and oriented X3 Expanded Neurological Exam Coma scale eye opening: To voice Coma scale motor response: Localizes to pain Coma scale verbal response: Confused Coma scale total: 12 Medical Decision Making Paramjit Inquiry Pt receiving controlled substance: No Vital Signs: 08/19/23 09:43 08/19/23 09:52 08/19/23 10:00 Temperature 97.4 F L Temperature Source Oral Pulse Rate 72 64 Pulse Rate [Left Radial] 95 H Respiratory Rate 18 14 17 Blood Pressure 112/72 128/66 Blood Pressure [Right Arm] 131/77 Blood Pressure Mean [Right Arm] 95 02 Sat by Pulse Oximetry 95 94 L 93 L Oxygen Delivery Method Room Air 08/19/23 10:30 08/19/23 11:28 08/19/23 11:31 Temperature Temperature Source Pulse Rate 70 65 81 Pulse Rate [Left Radial] Respiratory Rate 17 15 16 Blood Pressure 142/69 H 167/82 H 142/77 H Blood Pressure [Right Arm] Blood Pressure Mean [Right Arm] 02 Sat by Pulse Oximetry 96 94 L Oxygen Delivery Method Lab Data Lab results reviewed: Yes I reviewed the patient's lab results. Lab Results 08/19/23 09:40: WBC 11.6 H, RBC 4.67, Hgb 13.2, Hct 42.2, MCV 90.4, MCH 28.2, MCHC 31.3 L, RDW 15.6, Plt Count 257, MPV 7.4, Neut % (Auto) 73.7, Lymph % (Auto) 20.7, [place] % (Auto) 3.7, Eos % (Auto) 1.4, Baso % (Auto) 0.6, Neut # (Auto) 8.5 H, Lymph # (Auto) 2.4, [place] # (Auto) 0.4, Eos # (Auto) 0.2, Baso # (Auto) 0.1, Sodium 140, Potassium 4.3, Chloride 104, Carbon Dioxide 30, Anion Gap 10.3, BUN 24 H, Creatinine 1.40 H, Estimated Creat Clear 50, Estimated GFR 37 L, Est GFR ( Amer) 44 L, Glucose 206 H, Calcium 9.2, Total Bilirubin 0.2, AST 27, ALT 18, Alkaline Phosphatase 112, Troponin I < 0.01, Total Protein 6.0 L, Albumin 3.6, Globulin 2.4, Albumin/Globulin Ratio 1.5, TSH 3.77 08/19/23 10:25: Urine Opiates Screen Positive H, Urine Methadone Screen Negative, Ur Barbituates Screen Negative, Ur Phencyclidine Scrn Negative, Ur Amphetamines Screen Negative, U Benzodiazepines Scrn Negative, Urine Cocaine Screen Negative, U Marijuana (THC) Screen Negative 08/19/23 10:29: Urine Color Yellow, Urine Appearance Cloudy, Urine pH 5.5, Ur Specific [place] >= 1.030, Urine Protein 1+, Urine Glucose (UA) Negative, Urine Ketones Negative, Urine Blood Trace-i, Urine Nitrate Positive, Urine Bilirubin Negative, Urine Urobilinogen 0.2, Ur Leukocyte Esterase 1+ A, Urine RBC 3-5, Urine WBC 20-50, Ur Squamous Epith Cells 3-5, Urine Bacteria Trace 08/19/23 10:38: VBG pH 7.35, VBG pCO2 46.2, VBG pO2 34.7, VBG HCO3 25.2, VBG Total CO2 26.6, VBG O2 Saturation 73.4 H, VBG Base Excess -0.4, VBG Lactic Acid 2.9 H 08/19/23 10:53: Ammonia < 9 L 08/19/23 09:40 08/19/23 09:40 Orders (Tests/Meds): ED MEDICATIONS Generic Name Dose Route Start Last Admin Trade Name Freq PRN Reason Stop Dose Admin Ceftriaxone Sodium 1 gm/ 50 mls @ 100 mls/hr 08/19/23 11:30 08/19/23 11:33 Sodium Chloride IV 08/29/23 11:29 100 mls/hr Q24H AD Administration Discontinued Medications Generic Name Dose Route Start Last Admin Trade Name Freq PRN Reason Stop Dose Admin Lactated Ringer's 500 mls @ 999 mls/hr 08/19/23 10:30 08/19/23 10:45 Lactated Ringer's 1000 Ml Bag IV 08/19/23 11:00 999 mls/hr .Q31M AD Administration Lactated Ringer's 500 mls @ 999 mls/hr 08/19/23 10:42 08/19/23 10:44 Lactated Ringer's 500ml IV 08/19/23 11:12 999 mls/hr .Q31M ONE Administration Ceftriaxone Sodium 1 gm/ 50 mls @ 100 mls/hr 08/19/23 11:14 08/19/23 11:29 Sodium Chloride IV 08/19/23 11:43 Not Given ONCE ONE Naloxone HCl 0.4 mg 08/19/23 10:17 08/19/23 10:19 Naloxone 0.4mg/Ml Vial IV 08/19/23 10:18 Not Given ONCE ONE Naloxone HCl 0.4 mg 08/19/23 10:18 08/19/23 10:20 Naloxone 2mg/2ml Syringe IV 08/19/23 10:19 0.4 mg ONCE ONE Administration ORDERS Category Date Time Status CT head/brain wo con Stat Cat Scan 08/19/23 10:26 Taken CXR --portable [XR chest portable] Stat Exams 08/19/23 10:28 Taken Ammonia Stat Lab 08/19/23 10:53 Completed CBC w/Auto Diff [Complete Blood Count Auto Diff] Stat Lab 08/19/23 09:40 Completed CMP [Comprehensive Metabolic Panel] Stat Lab 08/19/23 09:40 Completed Lactate Venous Stat Lab 08/19/23 10:38 Ordered TSH [Thyroid Stimulating Hormone] Stat Lab 08/19/23 09:40 Completed Trop I [Troponin I] Stat Lab 08/19/23 09:40 Completed Troponin I Q3H Lab 08/19/23 13:30 Ordered Troponin I Q3H Lab 08/19/23 16:30 Ordered UA [Urinalysis and Microscopic] Stat Lab 08/19/23 10:29 Completed UDS [Drug Screen,Urine] Stat Lab 08/19/23 10:25 Completed Blood Culture Stat Micro 08/19/23 10:55 Received Urine Culture Stat Micro 08/19/23 10:29 Received Venous Blood Gas Stat RT 08/19/23 10:38 Completed ECG Data Tracing #1: I reviewed this ECG and interpreted as documented below: Ventricular rate of 73 frequent PVCs otherwise sinus rhythm no acute ischemic changes noted there is normal axis no significant conduction abnormality Medical Decision Narrative: 77-year-old female presented today with altered mental status very broad differential including stroke, intracranial hemorrhaging and delayed hemorrhaging from recent trauma, infection including urinary tract infection bacteremia pneumonia, metabolic abnormalities etc. Broad workup has been initiated and is pending. CT head performed which I personally interpreted shows no intracranial abnormality chest x-ray also performed which I first interpreted shows no acute cardiopulmonary abnormality Labs unremarkable reassessment patient remained stable Patient has urinary tract infection no evidence of sepsis or shock. Rocephin given I spoke with Dr. Shannon with hospital medicine who agreed admit the patient further evaluation and management. Critical Care Critical Care Time Critical Care Time: Yes Attestation: On 08/19/23, the high probability of a clinically significant, sudden or life threatening deterioration of the following system(s) required my full and direct attention, intervention and personal management. The time I documented below is in addition to time spent performing reported procedures but includes the following listed in this critical care notation. Total Time Total Critical Care Time: 35
[2023-08-19 10:47] LABS: Lactate Venous 2.9 mmol/L (0.4-2.0)
[2023-08-19 10:48] LABS: Blood Urea Nitrogen 24 mg/dl (7-17); Creatinine Clearance Estimated 50 mL/min (50-200); Estimated Glomerular Filt Rate 37 ml/min (>60); GFR (African American) 44 ML/MIN (>60)
[2023-08-19 10:49] LABS: Alanine Aminotransferase 18 U/L (12-78); Albumin Level 3.6 g/dl (3.5-5.0); Albumin/Globulin Ratio 1.5 (1.1-1.8); Alkaline Phosphatase 112 U/L (38-126); Anion Gap 10.3 mEq/L (5-15); Aspartate Amino Transferase 27 U/L (14-36); Bilirubin,Total 0.2 mg/dl (0.2-1.3); Calcium 9.2 mg/dl (8.4-10.2); Carbon Dioxide 30 mmol/L (22.0-30.0); Globulin 2.4 g/dL (1.3-3.2); Glucose 206 mg/dl (74-100)
[2023-08-19 10:52] LABS: Microscopic, Urine URINE MICROSCOPIC (MICROSCOPIC)
[2023-08-19 11:00] LABS: Appearance,Urine CLOUDY (Clear); Bilirubin,Urine Negative (Negative); Blood, Urine TRACE-I (Negative); Color,Urine YELLOW (Yellow); Glucose,Urine (UA) Negative (Negative); Ketones,Urine Negative (Negative); Leukocyte Esterase,Urine 1+ (Negative); Nitrate,Urine POSITIVE (Negative); PH,Urine 5.5 (5.0-8.5); Protein,Urine 1+ (Negative); Specific Gravity, Urine >= 1.030 (1.005-1.030); Urobilinogen,Urine 0.2 EU/dl (0.2)
[2023-08-19 11:02] LABS: Troponin I < 0.01 ng/ml (0.00-0.034)
[2023-08-19 11:13] LABS: Bacteria,Urine Trace /lpf; WBC,Urine 20-50 #/hpf (0-3)
[2023-08-19 11:13] LABS: Amphetamine/Metha Screen,Urine Negative ng/ml (<1000)
[2023-08-19 11:14] LABS: Ammonia < 9 umol/L (9-30)
[2023-08-19 11:14] LABS: Barbiturates Screen,Urine Negative ng/ml (<200)
[2023-08-19 11:15] LABS: Benzodiazepines Screen,Urine Negative ng/ml (<200); Cannabinoid Screen,Urine Negative ng/ml (<50)
[2023-08-19 11:16] LABS: Cocaine Screen,Urine Negative ng/ml (<300); Methadone Screen,Urine Negative ng/ml (<300)
[2023-08-19 11:17] LABS: Opiate Screen,Urine Positive ng/ml (<300)
[2023-08-19 11:18] LABS: Phencyclidine Screen,Urine Negative ng/ml (<25)
[2023-08-19 11:20] LABS: Thyroid Stimulating Hormone 3.77 uIU/mL (0.465-4.68)
[2023-08-19] MEDS: CEFTRIAXONE 1 GM 1 GM in 0.9 % SODIUM CHLORIDE 50 ML IV (11:33)
--- NOTE | 2023-08-19 12:02 | PC.NURSE ---
Pt admitted to room 212 to for UTI. OBS
--- NOTE | 2023-08-19 12:13 | PC.NURSE ---
report called to heidy montelongo on second floor
--- NOTE | 2023-08-19 12:25 | PC.NURSE ---
arrived by stretcher from ED
--- NOTE | 2023-08-19 12:38 | P.CONPHA_ITS ---
Pharmacy Intervention Comments: HOME MEDICATION LIST VERIFIED USING THE LIST FROM THE LONG-TERM
--- NOTE | 2023-08-19 13:02 | SW/DCPLANNER ---
Addendum entered by Kiersten Mueller 08/20/23 10:34: I have updated Destinee w/ [facility] that patient will return today [facility] level of care. Original Note: This patient currently resides at [facility] level of care. I will continue to follow up w/ Destinee at [place] until patient is medically stable for discharge.
[2023-08-19] MEDS: HEPARIN SODIUM 5,000 UNIT/ML VIAL 5000 UNIT SQ ×2 (13:28→20:14)
[2023-08-19 14:29] LABS: Troponin I < 0.01 ng/ml (0.00-0.034)
[2023-08-19 14:47] LABS: Reflex Lactic Add Lactic Reflex
--- NOTE | 2023-08-19 15:33 | P.HP_ITS ---
History of Present Illness *Admission Date: 08/19/23 *Reason for visit:: AMS *History of present illness: Patient is a 77-year-old female with past medical history of diabetes mellitus, chronic back pain, hypertension hyperlipidemia who presents to the hospital due to change in mental status. At time of my evaluation patient is unable to provide detailed history given change in mental status. Reportedly patient was noted to have weakness, somnolence patient reportedly currently lives at senior living facility. Otherwise no reported fevers chills. [facility] Disclaimer: The information contained in this section may have been updated after the patient was seen, as this information can be updated by other users. Medical History Anxiety Dementia Abnormal cardiovascular stress test Atypical angina Abnormal electrocardiogram [ECG] [EKG] Essential (primary) hypertension Syncope HCAP (healthcare-associated pneumonia) Obesity (BMI 30-39.9) Acute kidney injury Community acquired pneumonia Low back pain Compression fracture Chronic back pain Major depressive disorder, recurrent, unspecified Dizziness, nonspecific Pre-syncope Hypertension Sinusitis CVA (cerebral vascular accident) Hyperlipidemia, unspecified Type 2 diabetes mellitus without complications Unspecified cataract Family History (Updated 08/19/23 @ 12:45 by Chasity Caro RN) Other No significant family history Social History (Updated 08/19/23 @ 12:52 by Chasity Caro RN) Smoking Status: Former smoker second hand exposure: No alcohol intake: never substance use type: denies use current occupational status: retired Travel in the last 8 weeks: None household members: other housing: senior living current occupational exposures/hazards: No caffeine: No Review of Systems Review of Systems Review of systems:: pertinent systems reviewed and negative unless documented below Meds Home Medications and Allergies Home Medications Medication Instructions Recorded Confirmed Type acetaminophen 500 mg tablet 1,000 mg PO Q6HP PRN PAIN/FEVER 05/01/17 08/19/23 History (Tylenol Extra Strength) aspirin 81 mg chewable tablet 81 mg PO DAILY Heart disease 05/01/17 08/19/23 History bisacodyl 10 mg rectal suppository 10 mg MA DIRECTED PRN 05/01/17 08/19/23 History Constipation clopidogrel 75 mg tablet 75 mg PO DAILY PLATELET 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 05/01/17 08/19/23 History donepezil 10 mg tablet 10 mg PO HS DEMENTIA 05/01/17 08/19/23 History loperamide 2 mg capsule 2 mg PO Q3HP PRN Diarrhea 05/01/17 08/19/23 History memantine 10 mg tablet 10 mg PO BID DEMENTIA 05/01/17 08/19/23 History venlafaxine 150 mg 150 mg PO DAILY MOOD 05/01/17 08/19/23 History capsule,extended release 24 hr atorvastatin 80 mg tablet 80 mg PO HS Cholesterol 03/31/21 08/19/23 History melatonin 3 mg tablet 3 mg PO HS SLEEP 03/31/21 08/19/23 History ondansetron HCl 4 mg tablet 4 mg PO Q6HP PRN Nausea And 03/31/21 08/19/23 History Vomiting bisoprolol fumarate 5 mg tablet 5 mg PO DAILY 30 days #30 tabs 04/03/21 08/19/23 Rx levothyroxine 75 mcg tablet 75 mcg PO DAILY 06/05/22 08/19/23 History sennosides 8.6 mg-docusate sodium 2 tab-cap PO DAILY PRN bowel 02/13/23 08/19/23 History 50 mg tablet (Senexon-S) clonazepam 1 mg tablet 0.5 mg PO DAILY 04/07/23 08/19/23 History insulin glargine 100 unit/mL (3 8 unit (0.08 mL) SQ HS #15 mL 06/23/23 08/19/23 Rx mL) subcutaneous pen (Basaglar KwikPen U-100 Insulin) acetaminophen 300 mg-codeine 30 mg 1 tab PO BID PRN Moderate Pain #60 07/29/23 08/19/23 Rx tablet tabs calcium carbonate (Calcium Antacid) 200 mg PO BID #180 tabs 08/05/23 08/19/23 Rx brexpiprazole 2 mg tablet (Rexulti) 2 mg PO DAILY 08/19/23 08/19/23 History clonazepam 1 mg tablet 2 mg PO 1600 08/19/23 08/19/23 History linagliptin 5 mg tablet (Tradjenta) 5 mg PO DAILY 08/19/23 08/19/23 History New Prescriptions to Start Prescriptions: Allergies Allergy/AdvReac Type Severity Reaction Status Date / Time diphenhydramine Allergy Unknown Verified 08/19/23 12:18 [From [facility]] Exam Data for Last 24 hours Vital signs and Labs for Last 24 Hours: Temp Pulse Resp BP Pulse Ox O2 Del Method 97.4 F L 65 19 141/91 H 95 Room Air 08/19/23 12:50 08/19/23 12:50 08/19/23 12:50 08/19/23 12:50 08/19/23 12:50 08/19/23 14:54 Laboratory Results - last 24 hr 08/19/23 09:40: WBC 11.6 H, RBC 4.67, Hgb 13.2, Hct 42.2, MCV 90.4, MCH 28.2, MCHC 31.3 L, RDW 15.6, Plt Count 257, MPV 7.4, Neut % (Auto) 73.7, Lymph % (Auto) 20.7, [place] % (Auto) 3.7, Eos % (Auto) 1.4, Baso % (Auto) 0.6, Neut # (Auto) 8.5 H, Lymph # (Auto) 2.4, [place] # (Auto) 0.4, Eos # (Auto) 0.2, Baso # (Auto) 0.1, Sodium 140, Potassium 4.3, Chloride 104, Carbon Dioxide 30, Anion Gap 10.3, BUN 24 H, Creatinine 1.40 H, Estimated Creat Clear 50, Estimated GFR 37 L, Est GFR ( Amer) 44 L, Glucose 206 H, Calcium 9.2, Total Bilirubin 0.2, AST 27, ALT 18, Alkaline Phosphatase 112, Troponin I < 0.01, Total Protein 6.0 L, Albumin 3.6, Globulin 2.4, Albumin/Globulin Ratio 1.5, TSH 3.77 08/19/23 10:25: Urine Opiates Screen Positive H, Urine Methadone Screen Negative, Ur Barbituates Screen Negative, Ur Phencyclidine Scrn Negative, Ur Amphetamines Screen Negative, U Benzodiazepines Scrn Negative, Urine Cocaine Screen Negative, U Marijuana (THC) Screen Negative 08/19/23 10:29: Urine Color Yellow, Urine Appearance Cloudy, Urine pH 5.5, Ur Specific [place] >= 1.030, Urine Protein 1+, Urine Glucose (UA) Negative, Urine Ketones Negative, Urine Blood Trace-i, Urine Nitrate Positive, Urine Bilirubin Negative, Urine Urobilinogen 0.2, Ur Leukocyte Esterase 1+ A, Urine RBC 3-5, Urine WBC 20-50, Ur Squamous Epith Cells 3-5, Urine Bacteria Trace 08/19/23 10:38: VBG pH 7.35, VBG pCO2 46.2, VBG pO2 34.7, VBG HCO3 25.2, VBG Total CO2 26.6, VBG O2 Saturation 73.4 H, VBG Base Excess -0.4, VBG Lactic Acid 2.9 H 08/19/23 10:53: Ammonia < 9 L 08/19/23 13:35: Troponin I < 0.01 I & O for Last 24 hours: Intake & Output 08/16/23 08/17/23 08/18/23 08/19/23 23:59 23:59 23:59 23:59 Weight 90.718 kg Constitutional Constitutional: no acute distress *Routine HEENT Exam Head: Present normocephalic Eye: Present EOMI and PERRL ENT: Present mucous membranes moist *Routine Neck Exam Neck: Present supple; Absent lymphadenopathy *Routine Respiratory Exam Respiratory: Present CTA bilaterally *Routine Cardiovascular Exam Cardiovascular: Present RRR *Routine Abdominal Exam Abdominal: Present soft and normoactive bowel sounds; Absent tenderness *Routine Rectal Exam Rectal:: deferred *Routine Genitalia Exam Genitalia:: deferred *Routine Extremities Exam Extremities: Absent cyanosis, clubbing or edema *Routine Skin Exam Skin: Present warm; Absent rash *Routine Neurological Exam Neurological: Present alert Comments: AxA x 2 Assessment and Plan *Assessment and plan (1) Acute UTI: Status: Acute Category: Medical Code(s): N39.0 - Urinary tract infection, site not specified (2) Acute encephalopathy: Status: Acute Category: Medical Code(s): G93.40 - Encephalopathy, unspecified (3) Fall: Status: Acute Category: Medical Code(s): W19.XXXA - Unspecified fall, initial encounter (4) Type 2 diabetes mellitus without complications: Status: Chronic Qualifiers: Diabetes mellitus skilled nursing insulin use: unspecified skilled nursing insulin use status Qualified Code(s): E11.9 - Type 2 diabetes mellitus without complications Category: Medical Code(s): E11.9 - Type 2 diabetes mellitus without complications (5) Hyperlipidemia, unspecified: Status: Chronic Qualifiers: Hyperlipidemia type: mixed hyperlipidemia Qualified Code(s): E78.2 - Mixed hyperlipidemia Category: Medical Code(s): E78.5 - Hyperlipidemia, unspecified Plan Patient is a 77-year-old female with past medical history of diabetes mellitus, chronic back pain, hypertension hyperlipidemia who presents to the hospital due to change in mental status. At time of my evaluation patient is unable to provide detailed history given change in mental status. Reportedly patient was noted to have weakness, somnolence patient reportedly currently lives at senior living facility. Otherwise no reported fevers chills. Assessment and plan Acute metabolic encephalopathy likely secondary to urinary tract infection Urinary tract infection Leukocytosis Initiate IV Rocephin IV fluids Check sputum culture, blood culture CT head performed-negative for acute neurologic process Diabetes mellitus -Insulin sliding scale DVT prophylaxis-heparin
[2023-08-19 15:57] LABS: Lactic Acid Follow Up (RFLX 1) 2.7 mmol/L (0.7-2.1)
[2023-08-19 16:56] LABS: POC Glucose,Bedside 126 (70-110)
[2023-08-19 17:44] LABS: Reflex Lactic (2 hrs) Add Lactic Reflex
[2023-08-19 18:43] LABS: Lactic Acid Follow up (RFLX 2) 1.2 mmol/L (0.7-2.1)
[2023-08-19] MEDS: INSULIN GLARGINE 100 UNITS/ML 3ML FLEXPEN 8 UNIT SQ (20:10)
[2023-08-19] MEDS: CALCIUM CARBONATE 500MG CHEWTAB 250 MG PO (20:14)
[2023-08-19] MEDS: DONEPEZIL 10MG TAB 10 MG PO (20:14)
[2023-08-19] MEDS: MEMANTINE 10MG TABLET 10 MG PO (20:14)
[2023-08-19] MEDS: ATORVASTATIN 40MG TABLET 80 MG PO (20:14)
[2023-08-19] MEDS: MELATONIN 5MG TABLET 2.5 MG PO (20:15)
[2023-08-19 20:19] LABS: POC Glucose,Bedside 160 (70-110)
--- NOTE | 2023-08-19 20:28 | PC.NURSE ---
verified full code status with [facility] chart sent from facility.
[2023-08-20] VITALS: BP 131/74; PULSE 74; RESP 17; TEMP 37.2; O2SAT 93
--- NOTE | 2023-08-20 02:20 | PC.NURSE ---
Called to patients room due to patient trying to have a bowel movement and experiencing pain. Extremely constipated and patient says she thinks her last bowel movement was approximately 1 week ago. Called hospitalist and received an order for soap suds enema. Administered enema and patient had a large bowel movement with small amounts of blood present. Patient states she feels alot better after bowel movement and no pain present.
[2023-08-20] MEDS: HEPARIN SODIUM 5,000 UNIT/ML VIAL 5000 UNIT SQ ×2 (03:19→12:22)
[2023-08-20 04:00] VITALS: BP 136/79; PULSE 69; RESP 16; TEMP 36.5; O2SAT 92; BMI 29.7
--- NOTE | 2023-08-20 04:55 | PC.NURSE ---
Patient alert and oriented to self tonight. Tolerating room air well. Bowel movement this morning with soap suds enema administration due to constipation. No acute changes this shift. VSS. Turned patient q2h. No new complaints from patient. Safety measures in place.
[2023-08-20] MEDS: LEVOTHYROXINE 75MCG (0.075MG) TAB 75 MCG PO (06:15)
[2023-08-20 06:23] LABS: POC Glucose,Bedside 123 (70-110)
[2023-08-20 06:31] LABS: Basophils # 0.1 K/mm3 (0-0.2); Basophils % 0.5 % (0.1-2.0); Eosinophils # 0.2 K/mm3 (0.0-0.4); Eosinophils % 1.9 % (0.1-12.0); Hematocrit 38.6 % (37.0-47.0); Hemoglobin 12.2 g/dL (12.2-16.2); Lymphocytes # 3.4 K/mm3 (0.7-4.5); Lymphocytes % 31.1 % (10-50); Mean Corpuscular HGB Conc 31.5 g/dL (31.8-35.4); Mean Corpuscular Hemoglobin 28.2 pg (27.0-31.2); Mean Corpuscular Volume 89.4 fl (81-99); Mean Platelet Volume 8.2 fl (7.4-10.4); Monocytes # 0.4 K/mm3 (0.1-1.0); Monocytes % 3.8 % (1.7-9.3); Neutrophils # 6.8 K/mm3 (1.8-7.8); Neutrophils % 62.7 % (37.0-80.0); Platelet Count 280 K/mm3 (142-424); Red Blood Count 4.32 M/mm3 (4.20-5.40); Red Cell Distribution Width 15.7 % (11.5-17.5); White Blood Count 10.8 K/mm3 (4.8-10.8)
[2023-08-20 06:33] LABS: Chloride 106 mmol/L (98-107); Sodium 140 mmol/L (136-145)
[2023-08-20 06:36] LABS: Blood Urea Nitrogen 22 mg/dl (7-17); Calcium 8.7 mg/dl (8.4-10.2); Carbon Dioxide 28 mmol/L (22.0-30.0); Creatinine Clearance Estimated 47 mL/min (50-200); Estimated Glomerular Filt Rate 37 ml/min (>60); GFR (African American) 44 ML/MIN (>60); Glucose 115 mg/dl (74-100)
[2023-08-20 07:41] VITALS: BP 112/67; PULSE 83; RESP 18; TEMP 36.7; O2SAT 94
[2023-08-20] MEDS: CALCIUM CARBONATE 500MG CHEWTAB 250 MG PO (08:58)
[2023-08-20] MEDS: ASPIRIN 81MG CHEWABLE TABLET 81 MG PO (08:58)
[2023-08-20] MEDS: BISOPROLOL 5MG TABLET 5 MG PO (08:58)
[2023-08-20] MEDS: VENLAFAXINE XR 75MG CAPSULE 150 MG PO (08:58)
[2023-08-20] MEDS: MEMANTINE 10MG TABLET 10 MG PO (08:58)
[2023-08-20] MEDS: CLOPIDOGREL 75MG TAB 75 MG PO (08:58)
[2023-08-20] MEDS: clonazePAM 1MG TABLET 0.5 MG PO (09:05)
[2023-08-20] MEDS: CEFTRIAXONE 1 GM 1 GM in 0.9 % SODIUM CHLORIDE 50 ML IV (11:33)
[2023-08-20 11:34] LABS: POC Glucose,Bedside 190 (70-110)
--- NOTE | 2023-08-20 11:36 | EXP.DC.SUM ---
General Admission date:: 08/19/23 Discharge date: 08/20/23 HPI HPI HPI: Patient is a 77-year-old female with past medical history of diabetes mellitus, chronic back pain, hypertension hyperlipidemia who presents to the hospital due to change in mental status. At time of my evaluation patient is unable to provide detailed history given change in mental status. Reportedly patient was noted to have weakness, somnolence patient reportedly currently lives at prison facility. Otherwise no reported fevers chills. Hospital Course Hospital Course Hospital Course: Patient is a 77-year-old female with past medical history of diabetes mellitus, chronic back pain, hypertension hyperlipidemia who presents to the hospital due to change in mental status. At time of my evaluation patient is unable to provide detailed history given change in mental status. Reportedly patient was noted to have weakness, somnolence patient reportedly currently lives at prison facility. Otherwise no reported fevers chills. Assessment and plan Acute metabolic encephalopathy likely secondary to urinary tract infection - improved Urinary tract infection - Leukocytosis - resolved Patient AMS improved on rocephin, Urine culture growin gram negative rods, will start levaquin at DC, patient is stable for discharge and patient is thinking she can go take care of herself. Patient will be dc on oral levofloxacin On the date of discharge, the patient reported feeling stable. The patient was found not to be in any acute distress, and no new abnormalities on physical examination. Further, the patient expressed appropriate understanding of, and agreement with, the discharge recommendations, medications, and plan. Time spent 37 mins Exam Data for Last 24 hours Vital signs and Labs for Last 24 Hours: Temp Pulse Resp BP Pulse Ox O2 Del Method 98.0 F 83 18 112/67 94 L Room Air 08/20/23 07:41 08/20/23 07:41 08/20/23 07:41 08/20/23 07:41 08/20/23 07:41 08/20/23 09:00 Laboratory Results - last 24 hr 08/19/23 10:29: Urine Color Yellow, Urine Appearance Cloudy, Urine pH 5.5, Ur Specific Gidd[place] >= 1.030, Urine Protein 1+, Urine Glucose (UA) Negative, Urine Ketones Negative, Urine Blood Trace-i, Urine Nitrate Positive, Urine Bilirubin Negative, Urine Urobilinogen 0.2, Ur Leukocyte Esterase 1+ A, Urine RBC 3-5, Urine WBC 20-50, Ur Squamous Epith Cells 3-5, Urine Bacteria Trace 08/19/23 13:35: Troponin I < 0.01 08/19/23 15:30: Lactate 2.7 H 08/19/23 16:28: POC Glucose 126 H 08/19/23 18:11: Lactate 1.2 08/19/23 20:09: POC Glucose 160 H 08/20/23 05:41: WBC 10.8, RBC 4.32, Hgb 12.2, Hct 38.6, MCV 89.4, MCH 28.2, MCHC 31.5 L, RDW 15.7, Plt Count 280, MPV 8.2, Neut % (Auto) 62.7, Lymph % (Auto) 31.1, Desha % (Auto) 3.8, Eos % (Auto) 1.9, Baso % (Auto) 0.5, Neut # (Auto) 6.8, Lymph # (Auto) 3.4, Desha # (Auto) 0.4, Eos # (Auto) 0.2, Baso # (Auto) 0.1, Sodium 140, Potassium 4.0, Chloride 106, Carbon Dioxide 28, Anion Gap 10.0, BUN 22 H, Creatinine 1.40 H, Estimated Creat Clear 47, Estimated GFR 37 L, Est GFR ( Amer) 44 L, Glucose 115 H D, Calcium 8.7 08/20/23 06:14: POC Glucose 123 H 08/20/23 11:27: POC Glucose 190 H I & O for Last 24 hours: Intake & Output 08/17/23 08/18/23 08/19/23 08/20/23 23:59 23:59 23:59 23:59 Intake Total 270 / 270 611 / 611 Output Total 0 / 0 Balance 270 / 270 611 / 611 Weight 90.718 kg 86.092 kg Microbiology Reports for the Last 24 Hours: Microbiology 08/19/23 10:55 Blood Blood Culture - Preliminary NO GROWTH AFTER 24 HOURS 08/19/23 10:55 Blood Blood Culture - Preliminary NO GROWTH AFTER 24 HOURS 08/19/23 10:29 Urine,Clean Catch Urine Culture - Preliminary Gram Negative Rods Constitutional Constitutional: no acute distress *Routine HEENT Exam Head: Present normocephalic Eye: Present EOMI and PERRL ENT: Present mucous membranes moist *Routine Neck Exam Neck: Present supple; Absent lymphadenopathy *Routine Respiratory Exam Respiratory: Present CTA bilaterally *Routine Cardiovascular Exam Cardiovascular: Present RRR *Routine Abdominal Exam Abdominal: Present soft and normoactive bowel sounds; Absent tenderness *Routine Extremities Exam Extremities: Absent cyanosis, clubbing or edema *Routine Skin Exam Skin: Present warm; Absent rash *Routine Neurological Exam Neurological: Present alert and oriented X3 Results Data Completed and Pending Labs on day of discharge: Labs from last 24 hours 08/20/23 08/20/23 08/20/23 11:27 06:14 05:41 WBC 10.8 RBC 4.32 Hgb 12.2 Hct 38.6 MCV 89.4 MCH 28.2 MCHC 31.5 L RDW 15.7 Plt Count 280 MPV 8.2 Neut % (Auto) 62.7 Lymph % (Auto) 31.1 Desha % (Auto) 3.8 Eos % (Auto) 1.9 Baso % (Auto) 0.5 Neut # (Auto) 6.8 Lymph # (Auto) 3.4 Desha # (Auto) 0.4 Eos # (Auto) 0.2 Baso # (Auto) 0.1 Sodium 140 Potassium 4.0 Chloride 106 Carbon Dioxide 28 Anion Gap 10.0 BUN 22 H Creatinine 1.40 H Estimated Creat Clear 47 Estimated GFR 37 L Est GFR ( Amer) 44 L Glucose 115 H D POC Glucose 190 H 123 H Lactate Calcium 8.7 Troponin I Urine Color Urine Appearance Urine pH Ur Specific Gidd[place] Urine Protein Urine Glucose (UA) Urine Ketones Urine Blood Urine Nitrate Urine Bilirubin Urine Urobilinogen Ur Leukocyte Esterase Urine RBC Urine WBC Ur Squamous Epith Cells Urine Bacteria 08/19/23 08/19/23 08/19/23 20:09 18:11 16:28 WBC RBC Hgb Hct MCV MCH MCHC RDW Plt Count MPV Neut % (Auto) Lymph % (Auto) Desha % (Auto) Eos % (Auto) Baso % (Auto) Neut # (Auto) Lymph # (Auto) Desha # (Auto) Eos # (Auto) Baso # (Auto) Sodium Potassium Chloride Carbon Dioxide Anion Gap BUN Creatinine Estimated Creat Clear Estimated GFR Est GFR ( Amer) Glucose POC Glucose 160 H 126 H Lactate 1.2 Calcium Troponin I Urine Color Urine Appearance Urine pH Ur Specific G[place] Urine Protein Urine Glucose (UA) Urine Ketones Urine Blood Urine Nitrate Urine Bilirubin Urine Urobilinogen Ur Leukocyte Esterase Urine RBC Urine WBC Ur Squamous Epith Cells Urine Bacteria 08/19/23 08/19/23 08/19/23 15:30 13:35 10:29 WBC RBC Hgb Hct MCV MCH MCHC RDW Plt Count MPV Neut % (Auto) Lymph % (Auto) Desha % (Auto) Eos % (Auto) Baso % (Auto) Neut # (Auto) Lymph # (Auto) Desha # (Auto) Eos # (Auto) Baso # (Auto) Sodium Potassium Chloride Carbon Dioxide Anion Gap BUN Creatinine Estimated Creat Clear Estimated GFR Est GFR ( Amer) Glucose POC Glucose Lactate 2.7 H Calcium Troponin I < 0.01 Urine Color Yellow Urine Appearance Cloudy Urine pH 5.5 Ur Specific G[place] >= 1.030 Urine Protein 1+ Urine Glucose (UA) Negative Urine Ketones Negative Urine Blood Trace-i Urine Nitrate Positive Urine Bilirubin Negative Urine Urobilinogen 0.2 Ur Leukocyte Esterase 1+ A Urine RBC 3-5 Urine WBC 20-50 Ur Squamous Epith Cells 3-5 Urine Bacteria Trace Preliminary micro results at discharge 08/19/23 10:55 Blood Culture - Preliminary Blood NO GROWTH AFTER 24 HOURS 08/19/23 10:55 Blood Culture - Preliminary Blood NO GROWTH AFTER 24 HOURS 08/19/23 10:29 Urine Culture - Preliminary Urine,Clean Catch Gram Negative Rods DS: Diagnosis Discharge Diagnosis (1) Acute UTI: Status: Acute Code(s): N39.0 - Urinary tract infection, site not specified (2) Acute encephalopathy: Status: Acute Code(s): G93.40 - Encephalopathy, unspecified (3) Fall: Status: Acute Code(s): W19.XXXA - Unspecified fall, initial encounter (4) Type 2 diabetes mellitus without complications: Status: Chronic Code(s): E11.9 - Type 2 diabetes mellitus without complications Qualifiers: Diabetes mellitus [facility] insulin use: unspecified [facility] insulin use status Qualified Code(s): E11.9 - Type 2 diabetes mellitus without complications (5) Hyperlipidemia, unspecified: Status: Chronic Code(s): E78.5 - Hyperlipidemia, unspecified Qualifiers: Hyperlipidemia type: mixed hyperlipidemia Qualified Code(s): E78.2 - Mixed hyperlipidemia Meds Home Medications and Allergies Home Medications Medication Instructions Recorded Confirmed Type acetaminophen 500 mg tablet 1,000 mg PO Q6HP PRN PAIN/FEVER 05/01/17 08/19/23 History (Tylenol Extra Strength) aspirin 81 mg chewable tablet 81 mg PO DAILY Heart disease 05/01/17 08/19/23 History bisacodyl 10 mg rectal suppository 10 mg [place] DIRECTED PRN 05/01/17 08/19/23 History Constipation clopidogrel 75 mg tablet 75 mg PO DAILY [employer] 05/01/17 08/19/23 History donepezil 10 mg tablet 10 mg PO HS DEMENTIA 05/01/17 08/19/23 History loperamide 2 mg capsule 2 mg PO Q3HP PRN Diarrhea 05/01/17 08/19/23 History memantine 10 mg tablet 10 mg PO BID DEMENTIA 05/01/17 08/19/23 History venlafaxine 150 mg 150 mg PO DAILY MOOD 05/01/17 08/19/23 History capsule,extended release 24 hr atorvastatin 80 mg tablet 80 mg PO HS Cholesterol 03/31/21 08/19/23 History melatonin 3 mg tablet 3 mg PO HS SLEEP 03/31/21 08/19/23 History ondansetron HCl 4 mg tablet 4 mg PO Q6HP PRN Nausea And 03/31/21 08/19/23 History Vomiting bisoprolol fumarate 5 mg tablet 5 mg PO DAILY 30 days #30 tabs 04/03/21 08/19/23 Rx levothyroxine 75 mcg tablet 75 mcg PO DAILY 06/05/22 08/19/23 History sennosides 8.6 mg-docusate sodium 2 tab-cap PO DAILY PRN bowel 02/13/23 08/19/23 History 50 mg tablet (Senexon-S) clonazepam 1 mg tablet 0.5 mg PO DAILY 04/07/23 08/19/23 History insulin glargine 100 unit/mL (3 8 unit (0.08 mL) SQ HS #15 mL 06/23/23 08/19/23 Rx mL) subcutaneous pen (Derekaglar Judith U-100 Insulin) acetaminophen 300 mg-codeine 30 mg 1 tab PO BID PRN Moderate Pain #60 07/29/23 08/19/23 Rx tablet tabs calcium carbonate (Calcium Antacid) 200 mg PO BID #180 tabs 08/05/23 08/19/23 Rx brexpiprazole 2 mg tablet (Rexulti) 2 mg PO DAILY 08/19/23 08/19/23 History clonazepam 1 mg tablet 2 mg PO 1600 08/19/23 08/19/23 History linagliptin 5 mg tablet (Tradjenta) 5 mg PO DAILY 08/19/23 08/19/23 History levofloxacin 750 mg tablet 750 mg PO Q24H 5 days #5 tabs 08/20/23 Rx New Prescriptions to Start Prescriptions: levofloxacin Julio Cesar Shannon Allergies Allergy/AdvReac Type Severity Reaction Status Date / Time diphenhydramine Allergy Unknown Verified 08/19/23 12:18 [From [facility]] Discharge Plan Disposition Patient Disposition: Home, Self-Care Condition: Fair Follow up Plan Follow up with: Provider,Referral, MD [Primary Care Provider] - 1 week Prescriptions/Medication Reconciliation: New levofloxacin 750 mg tablet 750 mg PO Q24H 5 Days Qty: 5 0RF Continued levothyroxine 75 mcg tablet 75 mcg PO DAILY donepezil 10 mg tablet 10 mg PO HS venlafaxine 150 mg capsule,extended release 24hr 150 mg PO DAILY clopidogrel 75 mg tablet 75 mg PO DAILY acetaminophen [Tylenol Extra Strength] 500 mg tablet 1,000 mg PO Q6HP PRN (Reason: PAIN/FEVER) bisacodyl 10 mg suppository 10 mg [place] DIRECTED PRN (Reason: Constipation) Rx Instructions: EVERY 3 DAYS NEEDED aspirin 81 mg tablet,chewable 81 mg PO DAILY memantine 10 mg tablet 10 mg PO BID loperamide 2 mg capsule 2 mg PO Q3HP PRN (Reason: Diarrhea) sennosides-docusate sodium [Senexon-S] 8.6-50 mg tablet 2 tab-cap PO DAILY PRN (Reason: bowel) clonazepam 1 mg tablet 0.5 mg PO DAILY insulin glargine [Basaglar KwikPen U-100 Insulin] 100 unit/mL (3 mL) insulin pen 8 unit SQ HS Qty: 15 3RF acetaminophen-codeine 300-30 mg tablet 1 tab PO BID PRN (Reason: Moderate Pain) Qty: 60 2RF calcium carbonate [Calcium Antacid] 200 mg calcium (500 mg) tablet,chewable 200 mg PO BID Qty: 180 3RF clonazepam 1 mg tablet 2 mg PO 1600 Rexulti 2 mg tablet 2 mg PO DAILY Tradjenta 5 mg Tablet 5 mg PO DAILY atorvastatin 80 MG tablet 80 mg PO HS ondansetron HCl 4 MG tablet 4 mg PO Q6HP PRN (Reason: Nausea And Vomiting) melatonin 3 MG tablet 3 mg PO HS bisoprolol fumarate 5 MG tablet 5 mg PO DAILY 30 Days Qty: 30 0RF Problem Reconciliation Problems Reviewed?: Yes Patient Discharge Instructions ACTIVITY: Ambulate as tolerated DIET: continue same diet Patient Instructions: DI for Urinary Tract Infection (UTI), DI for Encephalopathy, DI for Altered Mental Status Providers Primary Care Provider: Provider,Referral Admit Provider: Julio Cesar Shannon Attending Provider: Julio Cesar Shannon
== END 2023-08-20 13:20 ==
LOC: ER 11:56 → 2ND 12:04
PROVIDERS: Admitting Provider Internal Medicine; Emergency Provider Student in an Organized Health Care Education/Training Program; Visit Provider Internal Medicine
DX: N39.0 Urinary tract infection, site not specified (principal); G93.41 Metabolic encephalopathy; E11.9 Type 2 diabetes mellitus without complications; E78.2 Mixed hyperlipidemia; I10 Essential (primary) hypertension; R29.6 Repeated falls; Z87.891 Personal history of nicotine dependence; Z79.4 Long term (current) use of insulin; Z79.899 Other long term (current) drug therapy; B96.1 Klebsiella pneumoniae [K. pneumoniae] as the cause of diseases classified elsewhere; Z79.02 Long term (current) use of antithrombotics/antiplatelets
CPT/HCPCS: 36415; 70450; 71045; 80048; 80053; 80307; 81001; 82140; 82803; 82962; 83605; 84443; 84484; 85025; 87040; 87086; 87088; 87186; 93005; 99291; G0378; J0696; J1644; J2310; J7120

== ENCOUNTER 2023-10-03 12:31 | Emergency (ER) | payer MEDICARE, MEDICAID, SELFPAY ==
[2023-10-03] VITALS (8 sets, daily range): BP systolic 124–175; BP diastolic 78–107; PULSE 67–97; RESP 16; TEMP 36.9; O2SAT 95–98; BMI 29.7
--- NOTE | 2023-10-03 12:44 | PC.NURSE ---
Dr. Harley at bedside
--- NOTE | 2023-10-03 12:46 | XR_ITS ---
PROCEDURE INFORMATION: Exam: XR Left Hip Exam date and time: 10/03/2023 12:49 PM Age: 78 years old Clinical indication: Injury or trauma; Fall; Blunt trauma (contusions or hematomas); Left; Hip; Additional info: Left hip pain after fall TECHNIQUE: Imaging protocol: Radiologic exam of the left hip. Views: 2 or 3 views hip with pelvis when performed. COMPARISON: CT ANGIO ABDOMEN PELVIS 08/17/2023 5:47 PM FINDINGS: Bones/joints: Unremarkable. No acute fracture. Soft tissues: Unremarkable. IMPRESSION: No acute findings.
--- NOTE | 2023-10-03 12:46 | XR_ITS ---
PROCEDURE INFORMATION: Exam: XR Left Knee Exam date and time: 10/03/2023 12:49 PM Age: 78 years old Clinical indication: Injury or trauma; Fall; Blunt trauma; Knee; Left; Additional info: Left knee pain after fall TECHNIQUE: Imaging protocol: Radiologic exam of the left knee. Views: 3 views. COMPARISON: CR XR KNEE LT 3V 10/03/2023 12:49 PM FINDINGS: Bones/joints: Moderate knee joint effusion. No acute fracture. Moderate lateral femorotibial degenerative joint disease and mild medial femorotibial degenerative joint disease. Soft tissues: Mild soft tissue swelling surrounding the knee. IMPRESSION: Moderate knee joint effusion. No acute fracture. Moderate lateral femorotibial degenerative joint disease and mild medial femorotibial degenerative joint disease.
--- NOTE | 2023-10-03 12:46 | XR_ITS ---
PROCEDURE INFORMATION: Exam: XR Left Femur Exam date and time: 10/03/2023 12:49 PM Age: 78 years old Clinical indication: Injury or trauma; Fall; Blunt trauma; Thigh or upper leg; Left; Additional info: Left hip and knee pain after fall TECHNIQUE: Imaging protocol: Radiologic exam of the left femur. Views: 2 views. COMPARISON: CR XR FEMUR LT 2V 10/03/2023 12:49 PM FINDINGS: Bones/joints: Moderate knee joint effusion. No acute fracture. Soft tissues: Unremarkable. IMPRESSION: Moderate knee joint effusion. No acute fracture.
--- NOTE | 2023-10-03 13:02 | HMH.EDGENADL ---
Discharge Plan Disposition Patient Disposition: Home, Self-Care Chief Complaint: PAIN Prescriptions Prescriptions: No Action levothyroxine 75 mcg tablet 75 mcg PO DAILY Rexulti 3 mg tablet 3 mg PO DAILY donepezil 10 mg tablet 10 mg PO HS venlafaxine 150 mg capsule,extended release 24hr 150 mg PO DAILY clopidogrel 75 mg tablet 75 mg PO DAILY acetaminophen [Tylenol Extra Strength] 500 mg tablet 1,000 mg PO Q6HP PRN (Reason: PAIN/FEVER) bisacodyl 10 mg suppository 10 mg WI DIRECTED PRN (Reason: Constipation) Rx Instructions: EVERY 3 DAYS NEEDED aspirin 81 mg tablet,chewable 81 mg PO DAILY memantine 10 mg tablet 10 mg PO BID loperamide 2 mg capsule 2 mg PO Q3HP PRN (Reason: Diarrhea) sennosides-docusate sodium [Senexon-S] 8.6-50 mg tablet 2 tab-cap PO DAILY PRN (Reason: bowel) clonazepam 1 mg tablet 0.5 mg PO DAILY insulin glargine [Basaglar KwikPen U-100 Insulin] 100 unit/mL (3 mL) insulin pen 8 unit SQ HS Qty: 15 3RF acetaminophen-codeine 300-30 mg tablet 1 tab PO BID PRN (Reason: Moderate Pain) Qty: 60 2RF calcium carbonate [Calcium Antacid] 200 mg calcium (500 mg) tablet,chewable 200 mg PO BID Qty: 180 3RF guaifenesin 100 mg/5 mL liquid 200 mg PO Q4H PRN (Reason: cough) Qty: 1000 11RF clonazepam 1 mg tablet 2 mg PO 1600 Tradjenta 5 mg Tablet 5 mg PO DAILY atorvastatin 80 MG tablet 80 mg PO HS ondansetron HCl 4 MG tablet 4 mg PO Q6HP PRN (Reason: Nausea And Vomiting) melatonin 3 MG tablet 3 mg PO HS bisoprolol fumarate 5 MG tablet 5 mg PO DAILY 30 Days Qty: 30 0RF Referrals Follow up/Referrals: Provider,Referral, MD [Primary Care Provider] - See instructions Activity Restrictions/Add. Instructions Additional Instructions/Restrictions: Call your family doctor to establish care for this visit to the emergency department and schedule follow-up within 48 hours to ensure improvement. If you have any worsening of your condition or any other concerning signs or symptoms, return to the emergency department or your primary care doctor for further evaluation. Take Tylenol 1000 mg every 6 hours (4 times daily) and ibuprofen 400 mg every 6 hours (4 times daily) as needed with food and water to prevent GI upset and kidney damage. Clinical Impressions Clinical Impression: Pain and swelling of left knee, Acute pain of left hip Print Language Print Language: Yi Discharge ED Provider: Jason Harley General Adult HPI General Chief complaint: PAIN Stated complaint: Left hip pain Time Seen by Provider: 10/03/23 12:32 Mode of Arrival: EMS Source of Information: Patient and EMS Limitations: No Limitations Description of Symptoms (Recalled from ER Triage Doc. by RN): Per [facility] patient fell forward two days ago. Today she began complaining of left hip and femur pain. History of Present Illness HPI narrative: Please note that above description of symptoms, in this electronic medical record under categorization of recalled from ER triage doctor by RN are reflective of an initial nursing assessment, however, is not reflective of my full history and physical exam that was personally taken and clarified. Consequentially, this preceding description of symptoms, which may include the patient's categorized chief complaint in the EMR, do not reflect my personal clinical impression, and the ultimate description of history of present illness and patient stated complaints should be deferred to this section of the note. Unless stated otherwise or congruent with this section of the note, additional signs, symptoms, or incongruence should be interpreted as inaccurate with my clinical impression. 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 05/01/17 09/29/23 donepezil 10 mg tablet 10 mg PO HS DEMENTIA 05/01/17 09/29/23 loperamide 2 mg capsule 2 mg PO Q3HP PRN Diarrhea 05/01/17 09/29/23 memantine 10 mg tablet 10 mg PO BID DEMENTIA 05/01/17 09/29/23 venlafaxine 150 mg 150 mg PO DAILY MOOD 05/01/17 09/29/23 capsule,extended release 24 hr atorvastatin 80 mg tablet 80 mg PO HS Cholesterol 03/31/21 09/29/23 melatonin 3 mg tablet 3 mg PO HS SLEEP 03/31/21 09/29/23 ondansetron HCl 4 mg tablet 4 mg PO Q6HP PRN Nausea And 03/31/21 09/29/23 Vomiting levothyroxine 75 mcg tablet 75 mcg PO DAILY 06/05/22 09/29/23 sennosides 8.6 mg-docusate sodium 2 tab-cap PO DAILY PRN bowel 02/13/23 09/29/23 50 mg tablet (Senexon-S) clonazepam 1 mg tablet 0.5 mg PO DAILY 04/07/23 09/29/23 clonazepam 1 mg tablet 2 mg PO 1600 08/19/23 09/29/23 linagliptin 5 mg tablet (Tradjenta) 5 mg PO DAILY 08/19/23 09/29/23 brexpiprazole 3 mg tablet (Rexulti) 3 mg PO DAILY 08/29/23 09/29/23 Previous Rx's ?Medication ?Instructions ?Recorded bisoprolol fumarate 5 mg tablet 5 mg PO DAILY 30 days #30 tabs 04/03/21 insulin glargine 100 unit/mL (3 8 unit (0.08 mL) SQ HS #15 mL 06/23/23 mL) subcutaneous pen (Basaglar KwikPen U-100 Insulin) acetaminophen 300 mg-codeine 30 mg 1 tab PO BID PRN Moderate Pain #60 07/29/23 tablet tabs calcium carbonate (Calcium Antacid) 200 mg PO BID #180 tabs 08/05/23 guaifenesin 100 mg/5 mL oral liquid 200 mg (10 mL) PO Q4H PRN cough 09/29/23 #1,000 mL Allergies Allergy/AdvReac Type Severity Reaction Status Date / Time diphenhydramine Allergy Unknown Verified 09/29/23 14:55 [From [facility] Disclaimer: The information contained in this section may have been updated after the patient was seen, as this information can be updated by other users. Medical History Anxiety Dementia Abnormal cardiovascular stress test Atypical angina Abnormal electrocardiogram [ECG] [EKG] Essential (primary) hypertension Syncope HCAP (healthcare-associated pneumonia) Obesity (BMI 30-39.9) Acute kidney injury Community acquired pneumonia Low back pain Compression fracture Chronic back pain Major depressive disorder, recurrent, unspecified Dizziness, nonspecific Pre-syncope Hypertension Sinusitis CVA (cerebral vascular accident) Hyperlipidemia, unspecified Type 2 diabetes mellitus without complications Unspecified cataract Family History Other No significant family history Social History Smoking Status: Former smoker second hand exposure: No alcohol intake: never substance use type: denies use current occupational status: retired Travel in the last 8 weeks: None household members: other housing: [facility] current occupational exposures/hazards: No caffeine: No ROS Obtained: Yes All systems reviewed & no additional complaints except as documented Physical Exam General General appearance: alert, obese and other (Chronically ill) Head Head exam: atraumatic and normocephalic Eye Eye exam: Present normal appearance, PERRL and EOMI ENT ENT exam: Present other (Dentures in place) Neck Neck exam: Present normal inspection, full ROM and trachea midline Respiratory Respiratory exam: Absent respiratory distress, wheezes, stridor, accessory muscle use or prolonged expiratory phase Cardiovascular Cardiovascular exam: Present other (Pulses equal symmetric in upper and lower extremities) Abdominal Exam Abdominal exam: Present soft; Absent distention, tenderness or pulsatile mass Extremities Exam Extremities exam: Present tenderness (With range of motion of left hip. Also tender to palpation left inguinal fold, left lateral hip, left knee. No outward signs of injury or deformity.); Absent edema Neurological Exam Neurological exam: Present alert, oriented X3 and CN II-XII intact; Absent motor sensory deficit Skin Skin exam: Present warm and dry; Absent diaphoresis or erythema Medical Decision Making Medical Records Medical records reviewed: Yes I reviewed the patient's medical records. Paramjit Inquiry Pt receiving controlled substance: No Paramjit was queried for this patient: No Vital Signs: 10/03/23 12:31 10/03/23 12:35 10/03/23 12:55 Temperature 98.5 F Temperature Source Oral Pulse Rate 97 H 96 H Pulse Rate [Radial] 94 H Respiratory Rate 16 Blood Pressure 134/89 166/107 H Blood Pressure [Right Arm] 137/81 Blood Pressure Mean [Right Arm] 99 Blood Pressure Source [Right Arm] Automatic Cuff Blood Pressure Position [Right Arm] Supine 02 Sat by Pulse Oximetry 96 95 97 Oxygen Delivery Method Room Air Room Air Room Air Orders (Tests/Meds): ED MEDICATIONS Discontinued Medications Generic Name Dose Route Start Last Admin Trade Name Andrews PRN Reason Stop Dose Admin Acetaminophen 1,000 mg 10/03/23 12:46 10/03/23 13:13 Acetaminophen 500mg Tab PO 10/03/23 12:47 1,000 mg ONCE ONE Administration Ibuprofen 600 mg 10/03/23 12:46 10/03/23 13:13 Ibuprofen 600 Mg Tablet PO 10/03/23 12:47 600 mg ONCE ONE Administration ORDERS Category Date Time Status Femur XR left 2 views [XR femur LT 2V] Stat Exams 10/03/23 12:46 Completed Hip XR left minimum 2 views [XR hip LT 2-3V w/pelvis] Exams 10/03/23 12:46 Completed Stat Knee XR left 3 views [XR knee LT 3V] Stat Exams 10/03/23 12:46 Completed Medical Decision Narrative: 78-year-old female presenting with mechanical fall from standing. States that she fell 2 days ago while in her room. Was complaining of pain yesterday, did not come to the emergency department then. Continue to have pain into today. Patient was able to be ambulated by staff to and from meals, but given constant complaining, came to the emergency department. She states she has not gotten anything for the pain. Pain is primarily in her left inguinal fold and left knee. It is mild at rest, moderate to severe when bearing weight. History was obtained via conversation with patient and EMS. On arrival, patient hemodynamically stable, alert, oriented x4, appropriate, GCS 15, moving all extremities spontaneously, pupils equal and reactive to light. Full physical exam performed and significant for obese, chronically ill female in no acute distress. She does have tenderness in inguinal fold with range of motion of left hip. No outward signs of injury or deformity. Differential includes fracture, sprain, strain, radiculopathy, among others. Patient was given Tylenol and Motrin for symptomatic management and correction of underlying abnormalities. Workup independently interpreted and significant for no acute fracture or bony abnormality of the pelvis, femur, knee of the left lower extremity other than joint effusion in the knee. See radiology read for full review of final results. Patient ambulatory. Because patient at baseline without signs or symptoms of clinical decompensation, deemed appropriate for discharge. Results were relayed to patient who voiced understanding and were agreeable to outpatient management and follow up. I discussed my clinical impression with patient and answered all questions. At this time, the evidence for any other entities in the differential is insufficient to warrant any further testing or ED observation. This was explained as well. Advisory was given that persistent or worsening symptoms require further evaluation. I confirmed the understanding of this discussion. Embedded Software Engineer disclaimer Much of this encounter note is an electronic piano case and bench assembler spoken language to printed text. Electronic piano case and bench assembler of the spoken language may permit errors. Although I have reviewed the note, some errors may still exist. Critical Care Critical Care Time Critical Care Time: No
[2023-10-03] MEDS: IBUPROFEN 600 MG TABLET PO (13:13)
[2023-10-03] MEDS: ACETAMINOPHEN 500MG TAB 1000 MG PO (13:13)
--- NOTE | 2023-10-03 14:18 | PC.NURSE ---
EMS NOTIFIED OF TRANSFER BACK TO [facility]
== END 2023-10-03 16:00 ==
PROVIDERS: Emergency Provider Emergency Medicine
DX: M25.562 Pain in left knee (principal); M25.462 Effusion, left knee; M25.552 Pain in left hip
CPT/HCPCS: 73502; 73552; 73562; 99283

== ENCOUNTER 2024-03-29 01:47 | Inpatient (IN) | payer MEDICARE, MEDICAID, SELFPAY ==
[2024-03-29] VITALS (72 sets, daily range): BP systolic 83–174; BP diastolic 47–154; PULSE 41–120; RESP 11–37; TEMP 36.9–38.5; O2SAT 79–100; BMI 32.3
--- NOTE | 2024-03-29 01:46 | CT_ITS ---
PROCEDURE INFORMATION: Exam: CTA Chest With Contrast Exam date and time: 03/29/2024 3:04 AM Age: 78 years old Clinical indication: Shortness of breath; Additional info: Hypoxic SOA TECHNIQUE: Imaging protocol: Computed tomographic angiography of the chest with contrast. Exam focused on the arteries. 3D rendering (Not supervised by radiologist): MIP and/or 3D reconstructed images were created by the technologist. Radiation optimization: All CT scans at this facility use at least one of these dose optimization techniques: automated exposure control; mA and/or kV adjustment per patient size (includes targeted exams where dose is matched to clinical indication); or iterative reconstruction. Contrast material: ISOVUE; Contrast volume: 85 ml; Contrast route: INTRAVENOUS (IV); COMPARISON: CT ANGIO CHEST 08/17/2023 5:47 PM FINDINGS: Pulmonary arteries: Normal. No pulmonary emboli. Aorta: Unremarkable. No aortic aneurysm. No aortic dissection. Lungs: Bibasilar infiltrates left more than right. Pleural spaces: Unremarkable. No pneumothorax. No pleural effusion. Heart: Unremarkable. No cardiomegaly. No pericardial effusion. Lymph nodes: Unremarkable. No enlarged lymph nodes. Bones/joints: Unremarkable. No acute fracture. Soft tissues: Unremarkable. IMPRESSION: Bibasilar infiltrates.
--- NOTE | 2024-03-29 01:46 | XR_ITS ---
PROCEDURE INFORMATION: Exam: XR Chest Exam date and time: 03/29/2024 1:58 AM Age: 78 years old Clinical indication: Shortness of breath; Additional info: SOA hypoxia chills TECHNIQUE: Imaging protocol: Radiologic exam of the chest. Views: 1 view. COMPARISON: CR XR CHEST PORTABLE 08/19/2023 11:02 AM FINDINGS: Lungs: No evidence of acute pulmonary disease or infiltrates Pleural spaces: No large effusion or pneumothorax. Heart/Mediastinum: Stable cardiac and mediastinal contours. Bones/joints: No evidence of acute osseous abnormalities within the visualized portions of the thoracic spine and ribs. Osseous structures appear appropriate for patient age. Soft tissues: The chin projects over the patient's upper chest somewhat limiting the study. Other findings: The patient is rotated on the examination which somewhat alters the expected anatomic relationships and limits the study. IMPRESSION: No dense parenchymal consolidation, pleural effusion, or pneumothorax.
--- NOTE | 2024-03-29 01:46 | CT_ITS ---
PROCEDURE INFORMATION: Exam: CT Head Without Contrast Exam date and time: 03/29/2024 3:02 AM Age: 78 years old Clinical indication: Altered mental status/memory loss; Additional info: AMS TECHNIQUE: Imaging protocol: Computed tomography of the head without contrast. Radiation optimization: All CT scans at this facility use at least one of these dose optimization techniques: automated exposure control; mA and/or kV adjustment per patient size (includes targeted exams where dose is matched to clinical indication); or iterative reconstruction. COMPARISON: CT HEAD/BRAIN WO CON 08/19/2023 11:02 AM FINDINGS: Brain: Chronic ischemic change and atrophy of the brain. Remote right posterior watershed infarction. Cerebral ventricles: No ventriculomegaly. Paranasal sinuses: Visualized sinuses are unremarkable. No fluid levels. Mastoid air cells: Visualized mastoid air cells are well aerated. Bones: Unremarkable. No acute fracture. Soft tissues: Unremarkable. IMPRESSION: Stable appearance of the brain compared to 08/19/2023. Advanced chronic ischemic change and volume loss without evidence of superimposed acute process.
[2024-03-29 01:54] LABS: VBG Base Excess -7.1 mmol/L (-2.4-2.3); VBG HCO3 21.3 mmol/L (23-30); VBG Oxygen Saturation 50.8 % (50-70); VBG PO2 33.7 mmol/L (28-40); VBG Total CO2 23.2 mmol/L (23-27)
[2024-03-29 01:55] LABS: Basophils # 0.1 K/mm3 (0-0.2); Basophils % 0.3 % (0.1-2.0); Eosinophils # 0.2 K/mm3 (0.0-0.4); Eosinophils % 1.3 % (0.1-12.0); Hematocrit 39.7 % (37.0-47.0); Hemoglobin 12.1 g/dL (12.2-16.2); Lymphocytes # 5.5 K/mm3 (0.7-4.5); Lymphocytes % 31.8 % (10-50); Mean Corpuscular HGB Conc 30.5 g/dL (31.8-35.4); Mean Corpuscular Hemoglobin 26.5 pg (27.0-31.2); Mean Corpuscular Volume 87.1 fl (81-99); Monocytes # 0.7 K/mm3 (0.1-1.0); Monocytes % 4.3 % (1.7-9.3); Neutrophils # 10.7 K/mm3 (1.8-7.8); Platelet Count 299 K/mm3 (142-424); Red Blood Count 4.56 M/mm3 (4.20-5.40); Red Cell Distribution Width 13.7 % (11.5-17.5); White Blood Count 17.2 K/mm3 (4.8-10.8)
[2024-03-29] MEDS: IPRATROPIUM/ALBUTEROL 3 ML NEB 9 ML IH (01:55)
[2024-03-29 01:57] LABS: Lactate Venous 6.7 mmol/L (0.4-2.0); VBG PCO2 59.3 mmol/L (35-51); VBG PH 7.17 mmol/L (7.31-7.41)
--- NOTE | 2024-03-29 01:57 | ECG_ITS ---
APPROVED REPORT Exam: Resting ECG HR:118 bpm ECG Measurements Heart Rate 118 AXES QRSd 82 QRS 54 QT 325 T 82 QTc 395 Conclusion A-fib RVR LOW QRS VOLTAGE IN EXTREMITY LEADS [QRS DEFLECTION < 0.5 mV IN LIMB LEADS] MODERATE ST DEPRESSION [0.05+ mV ST DEPRESSION] No STEMI Electronically signed by : YOVANA ORTEGA, 03/29/2024 07:41:18
[2024-03-29 01:59] LABS: Chloride 104 mmol/L (98-107); MANUAL DIFFERENTIAL MANUAL DIFFERENTIAL (MANUAL DIFF)
[2024-03-29 02:00] LABS: Albumin Level 3.7 g/dl (3.5-5.0); Potassium 4.6 mmoL/L (3.5-5.1); Sodium 140 mmol/L (136-145)
[2024-03-29] MEDS: VANCOMYCIN CONSULT REQUEST 1 EACH NOTAPPLIC (02:01)
--- NOTE | 2024-03-29 02:01 | PC.NURSE ---
Spoke with Leo at [facility] pharmacy for [facility] consult
[2024-03-29 02:02] LABS: Blood Urea Nitrogen 34 mg/dl (7-17); Creatinine Clearance Estimated 50 mL/min (50-200); Estimated Glomerular Filt Rate 40 ml/min (>60); GFR (African American) 48 ML/MIN (>60)
[2024-03-29 02:03] LABS: Alanine Aminotransferase 30 U/L (12-78); Albumin/Globulin Ratio 1.5 (1.1-1.8); Alkaline Phosphatase 100 U/L (38-126); Anion Gap 17.6 mEq/L (5-15); Aspartate Amino Transferase 32 U/L (14-36); Bilirubin,Total 0.2 mg/dl (0.2-1.3); Calcium 8.5 mg/dl (8.4-10.2); Carbon Dioxide 23 mmol/L (22.0-30.0); Globulin 2.5 g/dL (1.3-3.2); Glucose 166 mg/dl (74-100); Total Protein,Serum 6.2 g/dl (6.3-8.2)
[2024-03-29] MEDS: LACTATED RINGERS 1000ML 1,000 ML 999 ML IV ×2 (02:20→02:21)
[2024-03-29] MEDS: ONDANSETRON 4MG/2ML VIAL 4 MG IV (02:22)
[2024-03-29] MEDS: PIPERACILLIN/TAZO 4.5 GM in 0.9 % SODIUM CHLORIDE 100 ML IV (02:22)
--- NOTE | 2024-03-29 02:22 | [facility].EDCP ---
Discharge Plan Disposition Patient Disposition: Admitted Condition: Fair Prescriptions Prescriptions: No Action Rexulti 3 mg tablet 3 mg PO DAILY levothyroxine 88 mcg tablet 88 mcg PO DAILY calcium carbonate 500 mg calcium (1,250 mg) tablet 500 mg PO BID bisoprolol fumarate 5 mg tablet 2.5 mg PO DAILY 30 Days Qty: 15 0RF donepezil 10 mg tablet 10 mg PO HS venlafaxine 150 mg capsule,extended release 24hr 150 mg PO DAILY clopidogrel 75 mg tablet 75 mg PO DAILY acetaminophen [Tylenol Extra Strength] 500 mg tablet 1,000 mg PO Q6HP PRN (Reason: PAIN/FEVER) bisacodyl 10 mg suppository 10 mg [place] DIRECTED PRN (Reason: Constipation) Rx Instructions: EVERY 3 DAYS NEEDED aspirin 81 mg tablet,chewable 81 mg PO DAILY memantine 10 mg tablet 10 mg PO BID loperamide 2 mg capsule 2 mg PO Q3HP PRN (Reason: Diarrhea) sennosides-docusate sodium [Senexon-S] 8.6-50 mg tablet 2 tab-cap PO DAILY PRN (Reason: bowel) clonazepam 1 mg tablet 0.5 mg PO DAILY insulin glargine [Basaglar KwikPen U-100 Insulin] 100 unit/mL (3 mL) insulin pen 8 unit SQ HS Qty: 15 3RF guaifenesin 100 mg/5 mL liquid 200 mg PO Q4H PRN (Reason: cough) Qty: 1000 11RF acetaminophen-codeine 300-30 mg tablet 1 tab PO BID PRN (Reason: Moderate Pain) Qty: 60 0RF clonazepam 1 mg tablet 2 mg PO 1600 Tradjenta 5 mg Tablet 5 mg PO DAILY atorvastatin 80 MG tablet 80 mg PO HS ondansetron HCl 4 MG tablet 4 mg PO Q6HP PRN (Reason: Nausea And Vomiting) melatonin 3 MG tablet 3 mg PO HS Referrals Follow up/Referrals: Provider,Referral, MD [Primary Care Provider] - See instructions Clinical Impressions Clinical Impression: Sepsis, Acute hypoxic respiratory failure, Hypercarbia, Acidosis, lactic, Aspiration pneumonia Print Language Print Language: Bruneian Discharge ED Provider: Janessa Pinzon General Chief Complaint: Shortness of Breath/Dyspnea Stated Complaint: Weakness and Vomitting Time Seen by Provider: 03/29/24 01:47 Mode of Arrival: EMS Source of Information: Patient and EMS Limitations: No Limitations Description of Symptoms (Recalled from ER Triage Doc. by RN): Patient presents to ED via [facility] from [facility] stating patient was slighty altered tonight, had x1 episode of vomiting, and difficulty breathing. Patient received her covid booster last thursday. Patient arrives to ED on duo neb from EMS, vitals are stable. History of Present Illness HPI narrative: 78-year-old female with history of diabetes, previous UTI, encephalopathy, previous CVA, pre-existing eyelid droop, hypertension presents to the ER via EMS from [facility]. Patient has had emesis today including 1 episode of projectile vomiting. After that she developed difficulty breathing and seemed to be slightly altered from her baseline. They states she is mildly confused but does not have new deficits, no falls or injuries. Patient received COVID booster last Thursday. EMS reports they found her satting in the mid 80s, no prior oxygen requirement. They administered 1 DuoNeb in transport, no other medications administered according to EMS. Patient denies pain. She denies headache, chest pain, abdominal pain, cough, numbness, tingling, or weakness. She does report vomiting but denies diarrhea. She does not report pain with urination. prison reported temperature over 102. 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 05/01/17 03/27/24 donepezil 10 mg tablet 10 mg PO HS DEMENTIA 05/01/17 03/27/24 loperamide 2 mg capsule 2 mg PO Q3HP PRN Diarrhea 05/01/17 03/27/24 memantine 10 mg tablet 10 mg PO BID DEMENTIA 05/01/17 03/27/24 venlafaxine 150 mg 150 mg PO DAILY MOOD 05/01/17 03/27/24 capsule,extended release 24 hr atorvastatin 80 mg tablet 80 mg PO HS Cholesterol 03/31/21 03/27/24 melatonin 3 mg tablet 3 mg PO HS SLEEP 03/31/21 03/27/24 ondansetron HCl 4 mg tablet 4 mg PO Q6HP PRN Nausea And 03/31/21 03/27/24 Vomiting sennosides 8.6 mg-docusate sodium 2 tab-cap PO DAILY PRN bowel 02/13/23 03/27/24 50 mg tablet (Senexon-S) clonazepam 1 mg tablet 0.5 mg PO DAILY 04/07/23 03/27/24 clonazepam 1 mg tablet 2 mg PO 1600 08/19/23 03/27/24 linagliptin 5 mg tablet (Tradjenta) 5 mg PO DAILY 08/19/23 03/27/24 brexpiprazole 3 mg tablet (Rexulti) 3 mg PO DAILY 08/29/23 03/27/24 calcium carbonate 500 mg PO BID 02/16/24 03/27/24 levothyroxine 88 mcg tablet 88 mcg PO DAILY 02/16/24 03/27/24 Previous Rx's ?Medication ?Instructions ?Recorded insulin glargine 100 unit/mL (3 8 unit (0.08 mL) SQ HS #15 mL 06/23/23 mL) subcutaneous pen (Basaglar KwikPen U-100 Insulin) guaifenesin 100 mg/5 mL oral liquid 200 mg (10 mL) PO Q4H PRN cough 09/29/23 #1,000 mL acetaminophen 300 mg-codeine 30 mg 1 tab PO BID PRN Moderate Pain #60 02/16/24 tablet tabs bisoprolol fumarate 5 mg tablet 2.5 mg (1/2 x 5 mg) PO DAILY 30 03/27/24 days #15 tabs Allergies Allergy/AdvReac Type Severity Reaction Status Date / Time diphenhydramine (From Allergy Unknown Verified 02/16/24 13:27 BENADRYL) [facility] Disclaimer: The information contained in this section may have been updated after the patient was seen, as this information can be updated by other users. Medical History Diabetes mellitus Anxiety Dementia Abnormal cardiovascular stress test Atypical angina Abnormal electrocardiogram [ECG] [EKG] Essential (primary) hypertension Syncope HCAP (healthcare-associated pneumonia) Obesity (BMI 30-39.9) Acute kidney injury Community acquired pneumonia Low back pain Compression fracture Chronic back pain Major depressive disorder, recurrent, unspecified Dizziness, nonspecific Pre-syncope Hypertension Sinusitis CVA (cerebral vascular accident) Hyperlipidemia, unspecified Type 2 diabetes mellitus without complications Unspecified cataract Family History Other No significant family history Social History Smoking Status: Never smoker second hand exposure: No alcohol intake: never substance use type: denies use current occupational status: retired Travel in the last 8 weeks: None household members: other housing: jail current occupational exposures/hazards: No caffeine: No Other Medical History Have you received the Flu Vaccine for this season: No Have you received the Pneumonia Vaccine: Yes (12/20/14) ROS Obtained: Yes Systems reviewed as appropriate & no additional complaints except as documented Per HPI Physical Exam General General appearance: alert Comment: Rapid respirations, ill-appearing Head Head exam: atraumatic and normocephalic Eye Eye exam: Present PERRL and EOMI ENT ENT exam: Present mucous membranes moist Neck Neck exam: Present normal inspection and full ROM Chest Chest inspection: Present symmetric chest wall rise Respiratory Respiratory exam: Present normal lung sounds bilaterally (Rhonchi, rales bilaterally), respiratory distress (Tachypneic, no accessory muscle use, saturating 94% on 5 L nasal cannula) and wheezes (Mild); Absent stridor Cardiovascular Cardiovascular exam: Present normal rhythm and tachycardia Abdominal Exam Abdominal exam: Present soft; Absent distention, tenderness, guarding or rebound Extremities Exam Extremities exam: Present full ROM; Absent normal capillary refill (Capillary fill 2 to 3 seconds) or edema Neurological Exam Neurological exam: Present alert; Absent oriented X3 (Oriented to self and location, disoriented to year, believes the president is [place].) or motor sensory deficit (Patient has generalized weakness but no localizing deficit) Psychiatric Psychiatric exam: Present normal affect and normal mood Skin Skin exam: Present warm and dry HEART Score HEART Score HEART Score assessment performed?: Yes History (anamnesis): Slightly suspicious ECG: Non-specific disturbance Age: >65 years Risk factors: Atherosclerosis history Troponin: </= normal limit HEART Score: 5 Procedures Miscellaneous Procedure Procedure Performed: Limited lung ultrasound A focused ultrasound exam of the pleural spaces was performed to evaluate for pneumothorax, pulmonary edema, pleural effusion and/or consolidation. The ultrasound was performed with the following indications, as noted in the H&P: Dyspnea Identified structures: Bilateral thoracic cavities were examined. Findings: Lung sliding: -Present bilaterally B-lines: Absent Pleural effusion: -Not appreciated Consolidation: Small consolidation in lower lateral lung maynard Impression: - Pneumothorax absent bilaterally - Pleural effusion absent bilaterally - B-lines absent bilaterally - Consolidation in the lower lateral lung maynard Images were saved to permanent archive The study was technically adequate CPT 11611-27 This study was performed by tx, and I personally interpreted all images/videos. Based on my clinical judgement, these images were adequate and did not necessitate further imaging. Limited Cardiac Ultrasound Indication: Shortness of breath, altered mental status Identified cardiac views: Attempted parasternal long and short axis as well as apical four-chamber but had difficulty obtaining these secondary to patient's anatomy. Best view was the subxiphoid Findings: Cardiac activity present without gross wall motion abnormality, no pericardial effusion, no right heart strain Impression: -Cardiac activity present without gross wall motion abnormality, no pericardial effusion, no right heart strain Images were saved to permanent archive The study was technically adequate CPT: 51209 This study was performed by tx, and I personally interpreted all images/videos. Based on my clinical judgement, these images were adequate and did not necessitate further imaging. Critical Care Critical Care Time Critical Care Time: Yes Attestation: On 03/29/24, the high probability of a clinically significant, sudden or life threatening deterioration of the following system(s) (respiratory, hemodynamic) required my full and direct attention, intervention and personal management. The time I documented below is in addition to time spent performing reported procedures but includes the following listed in this critical care notation. Total Time Total Critical Care Time: 35 Medical Decision Making Medical Records Medical records reviewed: Yes I reviewed the patient's medical records. MR Comment: I reviewed discharge summary from August 2023. Patient was admitted to the hospital due to mental status changes. She was thought to have acute metabolic encephalopathy likely secondary to UTI. She was discharged on Levaquin. Paramjit Inquiry Pt receiving controlled substance: No Vital Signs Vital Signs: 03/29/24 01:47 03/29/24 01:55 03/29/24 01:55 Temperature 100.6 F H Temperature Source Axillary Pulse Rate 116 H Pulse Rate [Right Brachial] 115 H Respiratory Rate 24 Blood Pressure Blood Pressure [Right Arm] 163/107 H Blood Pressure Mean [Right Arm] 125 Blood Pressure Source [Right Arm] Automatic Cuff Blood Pressure Position [Right Arm] Supine 02 Sat by Pulse Oximetry 94 L 94 L Oxygen Delivery Method Simple Mask Nasal Cannula Oxygen Flow Rate (LPM) 6 5 03/29/24 01:55 03/29/24 02:00 Temperature Temperature Source Pulse Rate 119 H 120 H Pulse Rate [Right Brachial] Respiratory Rate 25 H Blood Pressure 174/154 H Blood Pressure [Right Arm] Blood Pressure Mean [Right Arm] Blood Pressure Source [Right Arm] Blood Pressure Position [Right Arm] 02 Sat by Pulse Oximetry 97 Oxygen Delivery Method Oxygen Flow Rate (LPM) Lab Data Labs: Lab Results 03/29/24 01:27: WBC 17.2 H, RBC 4.56, Hgb 12.1 L, Hct 39.7, MCV 87.1, MCH 26.5 L, MCHC 30.5 L, RDW 13.7, Plt Count 299, MPV 10.0, Neut % (Auto) 62.0, Lymph % (Auto) 31.8, [place] % (Auto) 4.3, Eos % (Auto) 1.3, Baso % (Auto) 0.3, Neut # (Auto) 10.7 H, Lymph # (Auto) 5.5 H, [place] # (Auto) 0.7, Eos # (Auto) 0.2, Baso # (Auto) 0.1, Total Counted 100, Neutrophils % (Manual) 67, Lymphocytes % (Manual) 25, Monocytes % (Manual) 7, Eosinophils % (Manual) 1, Platelet Estimate Normal, RBC Morphology Normal, Sodium 140, Potassium 4.6, Chloride 104, Carbon Dioxide 23, Anion Gap 17.6 H, BUN 34 H, Creatinine 1.30 H, Estimated Creat Clear 50, Estimated GFR 40 L, Est GFR ( Amer) 48 L, Glucose 166 H, Calcium 8.5, Total Bilirubin 0.2, AST 32, ALT 30, Alkaline Phosphatase 100, Troponin I < 0.01, NT-Pro-B Natriuret Pep 287, Total Protein 6.2 L, Albumin 3.7, Globulin 2.5, Albumin/Globulin Ratio 1.5, Acetone Level None detected 03/29/24 01:52: VBG pH 7.17 L, VBG pCO2 59.3 H, VBG pO2 33.7, VBG HCO3 21.3 L, VBG Total CO2 23.2, VBG O2 Saturation 50.8, VBG Base Excess -7.1 L, VBG Lactic Acid 6.7 H 03/29/24 02:07: Lactate 4.5 H 03/29/24 03:49: VBG pH 7.36, VBG pCO2 40.1, VBG pO2 31.0, VBG HCO3 22.2 L, VBG Total CO2 23.5, VBG O2 Saturation 58.2, VBG Base Excess -3.2 L, VBG Lactic Acid 1.9 03/29/24 01:27 03/29/24 01:27 Response Orders (Tests/Meds): ED MEDICATIONS Generic Name Dose Route Start Last Admin Trade Name Freq PRN Reason Stop Dose Admin Acetaminophen 650 mg 03/29/24 04:07 Acetaminophen 325mg Tab PO 04/28/24 04:06 Q4HP PRN Fever or Mild Pain (1-3) Budesonide 0.5 mg 03/29/24 04:15 Budesonide 0.5mg/2ml [facility] 04/28/24 04:14 BIDRT [facility] Enoxaparin Sodium 40 mg 03/29/24 09:00 Enoxaparin 40mg/0.4ml Syringe SUBCUT 04/28/24 08:59 DAILY AD Levalbuterol HCl 1.25 mg 03/29/24 06:00 Levalbuterol 1.25mg/3ml [facility] 04/28/24 05:59 Q6RT AD Miscellaneous 1 each 03/29/24 02:00 03/29/24 02:01 Vancomycin Consult Request NOTAPPLIC 04/28/24 01:59 1 each CONSULT PHARMACY AD Administration Ondansetron HCl 4 mg 03/29/24 04:07 Ondansetron 4mg/2ml Vial IV 04/28/24 04:06 Q6HP PRN Nausea Discontinued Medications Generic Name Dose Route Start Last Admin Trade Name Freq PRN Reason Stop Dose Admin Acetaminophen 1,000 mg 03/29/24 03:53 03/29/24 03:55 Acetaminophen 1,000mg/100ml Vial IV 03/29/24 03:54 1,000 mg ONCE ONE Administration Albuterol/Ipratropium 9 ml 03/29/24 01:46 03/29/24 01:55 Ipratropium/Albuterol 3 Ml Neb IH 03/29/24 01:47 9 ml ONCE ONE Administration Lactated Ringer's 1,000 mls @ 999 mls/hr 03/29/24 01:46 03/29/24 02:20 Lactated Ringer's 1000 Ml Bag IV 03/29/24 02:46 999 mls/hr .Q1H1M ONE Administration Piperacillin Sod/Tazobactam 100 mls @ 200 mls/hr 03/29/24 01:51 03/29/24 02:22 Sod 4.5 gm/ Sodium Chloride IV 03/29/24 02:20 200 mls/hr ONCE ONE Administration Vancomycin/PEG/NADA/Lysine/Water 1.75 gm in 350 mls @ 175 mls/hr 03/29/24 02:15 03/29/24 02:52 Vancomycin 1.75gm/350ml (Peg) Premix IV 03/29/24 04:14 175 mls/hr ONCE ONE Administration Lactated Ringer's 1,000 mls @ 999 mls/hr 03/29/24 02:00 03/29/24 02:21 Lactated Ringer's 1000 Ml Bag IV 03/29/24 03:30 999 mls/hr .Q1H1M AD Administration Iopamidol 85 ml 03/29/24 03:13 03/29/24 03:15 Iopamidol-370 (76%);100ml Bottle IV 03/29/24 03:14 85 ml ONCE ONE Administration Loratadine 10 mg 03/29/24 04:11 Loratadine 10mg Tablet PO 03/29/24 04:12 ONCE ONE Ondansetron HCl 4 mg 03/29/24 01:50 03/29/24 02:22 Ondansetron 4mg/2ml Vial IV 03/29/24 01:51 4 mg ONCE ONE Administration Sodium Chloride 10 ml 03/29/24 03:13 03/29/24 03:15 Sodium Chloride 0.9% 10ml Syr (Rad Only) IV 03/29/24 03:14 10 ml ONCE ONE Administration Sodium Chloride 50 ml 03/29/24 03:13 03/29/24 03:15 0.9 % Sodium Chloride 50 Ml Vial IV 03/29/24 03:14 50 ml ONCE ONE Administration ORDERS Category Date Time Status CT angio chest PE protocol Stat Cat Scan 03/29/24 01:[address] head/brain wo con Stat Cat Scan 03/29/24 01:46 Completed Pulmonology Consult [Consult to Pulmonology] [CONS] Cons 03/29/24 04:13 Active Routine CXR --portable [XR chest portable] Stat Exams 03/29/24 01:46 Completed POCUS Point of Care (ER Only) Stat Exams 03/29/24 01:46 Ordered Acetone, Serum (Rapid) Stat Lab 03/29/24 01:27 Completed BNP [NT Pro Brain Natriuretic Pep.] Stat Lab 03/29/24 01:27 Completed CBC w/Auto Diff [Complete Blood Count Auto Diff] Stat Lab 03/29/24 01:27 Completed CMP [Comprehensive Metabolic Panel] Stat Lab 03/29/24 01:27 Completed Complete Blood Count Auto Diff AMLAB Lab 03/29/24 06:00 Ordered Complete Blood Count Auto Diff AMLAB Lab 03/30/24 06:00 Ordered Complete Blood Count Auto Diff AMLAB Lab 03/31/24 06:00 Ordered Complete Blood Count Auto Diff AMLAB Lab 04/01/24 06:00 Ordered Complete Blood Count Auto Diff AMLAB Lab 04/02/24 06:00 Ordered Comprehensive Metabolic Panel AMLAB Lab 03/29/24 06:00 Ordered Comprehensive Metabolic Panel AMLAB Lab 03/30/24 06:00 Ordered Comprehensive Metabolic Panel AMLAB Lab 03/31/24 06:00 Ordered Comprehensive Metabolic Panel AMLAB Lab 04/01/24 06:00 Ordered Comprehensive Metabolic Panel AMLAB Lab 04/02/24 06:00 Ordered Full Resp Panel w/COVID ([facility]) Routine Lab 03/29/24 04:06 Ordered HIV Combo Stat Lab 03/29/24 01:27 Received Hepatitis C Ab Qual. W/ RFX Stat Lab 03/29/24 01:59 Ordered Lactic Acid Stat Lab 03/29/24 02:07 Completed Magnesium AMLAB Lab 03/29/24 06:00 Ordered Magnesium AMLAB Lab 03/30/24 06:00 Ordered Magnesium AMLAB Lab 03/31/24 06:00 Ordered Magnesium AMLAB Lab 04/01/24 06:00 Ordered Magnesium AMLAB Lab 04/02/24 06:00 Ordered Trop I [Troponin I] Stat Lab 03/29/24 01:27 Completed Troponin I Q3H Lab 03/29/24 05:00 Ordered Troponin I Q3H Lab 03/29/24 08:00 Ordered Urinalysis and Microscopic Stat Lab 03/29/24 01:46 Ordered Blood Culture Stat Micro 03/29/24 01:50 Received VBG [Venous Blood Gas] Stat RT 03/29/24 01:52 Completed VBG [Venous Blood Gas] Stat RT 03/29/24 03:49 Completed MDM Narrative Medical Decision Narrative: In summary, this 78-year-old female with comorbidities described in the HPI presents to the emergency department today with shortness of breath, altered mental status according to jail after having episode of emesis. On initial evaluation patient is tachycardic, tachypneic, hypoxic, febrile, but not hypotensive, she does have 2 to 3-second capillary refill, peripheral pulses palpable, no peripheral edema, lungs with mild wheezing as well as rhonchi and rales, abdomen is soft, nontender, nondistended, GCS 14, no localizing neurologic deficits. Patient meets sepsis criteria. She is receiving 30 mL/kg fluid bolus since she does not have history of kidney dysfunction or fluid overload.. She is also receiving broad-spectrum antibiotics vancomycin and Zosyn. Differential diagnosis includes but is not limited to pneumonia, urinary tract infection, aspiration, viral syndrome, lactic acidosis, hypercarbia, intracranial abnormality, pleural effusion, fluid overload though I do not appreciate evidence of this clinically. Also considered DKA, PE, among others. Appropriate workup including cardiac workup, CT imaging, intracranial imaging, serum labs has been ordered. VBG resulted demonstrating respiratory and metabolic acidosis with elevated lactate and hypercarbia. She is oriented but has diffuse generalized weakness and I am not confident that she would be able to pull off of BiPAP mask so Vapotherm is being attempted at this time. I do not believe she requires intubation at this time since she is able to talk to me and clear her own airway, but she has upper extremity tremor and diffuse weakness which concerns me about applying BiPAP. She is receiving DuoNebs which may help with her hypercarbia and wheezing as well. ECG personally interpreted demonstrates atrial fibrillation with RVR, rate 118, normal QTc, normal axis, no STEMI. Patient is receiving IV acetaminophen for fever. Labs personally reviewed demonstrate leukocytosis with WBC 17.2, anemia hemoglobin 12.1, Stable from prior based on my review of previous labs, platelets normal, initial VBG showing signs of respiratory metabolic acidosis with hypercarbia, lactic on VBG was 6.7, pH 7.17. CMP with baseline kidney dysfunction, lactate on chemistry 4.5, no transaminitis, initial troponin undetectably low less than 0.01, no acetone reassuring against DKA as is the patient's blood glucose of 166 on chemistry. CXR personally interpreted demonstrates no obvious large lobar infiltrate, pneumothorax, or pleural effusion, patient is rotated but mediastinum appears questionably shifted to the right. See radiology read for final interpretation.. CT head personally interpreted demonstrates chronic changes but no acute intracranial abnormality such as bleed, mass, or midline shift. See radiology read for final interpretation. CTA PE personally interpreted does not demonstrate PE, patient has bibasilar infiltrate, potentially related to aspiration event. See radiology read for final interpretation. I performed [id number] bedside ultrasound of the heart and lungs. Patient does not have pneumothorax, no B-lines, slight basilar consolidation, cardiac windows difficult to obtain, some views were able to be obtained from the right chest, but patient does not have pericardial effusion or obvious wall motion abnormality. See procedure note for details. On reevaluation patient has had significant improvement in her mentation since receiving fluids, antibiotics, Vapotherm oxygen therapy. She is much more interactive and quick to answer questions as well as follow commands. She is still slightly disoriented, but behaving appropriately and answering questions adequately. Repeat VBG demonstrates improvement in her respiratory and metabolic acidosis, normal pH. She is tolerating Vapotherm well. At this time I believe she is appropriate for admission. I discussed this case with the hospitalist including lab and imaging findings, current Vapotherm settings. Patient was graciously accepted for admission. She was admitted in stable condition.
[2024-03-29 02:33] LABS: Lactic Acid 4.5 mmol/L (0.7-2.1)
[2024-03-29 02:33] LABS: Troponin I < 0.01 ng/ml (0.00-0.034)
[2024-03-29 02:51] LABS: NT Pro Brain Natriuretic Pep. 287 pg/mL (0-450)
[2024-03-29] MEDS: VANCOMYCIN/WATER FOR INJ (PEG) 1.75 GM/350 ML PIGGYBACK IV (02:52)
[2024-03-29] MEDS: IOPAMIDOL-370 (76%);100ML BOTTLE 85 ML IV (03:15)
[2024-03-29] MEDS: SODIUM CHLORIDE 0.9% 10ML SYR (RAD ONLY) 10 ML IV (03:15)
[2024-03-29] MEDS: 0.9 % SODIUM CHLORIDE 50 ML VIAL IV (03:15)
[2024-03-29 03:16] LABS: Acetone, Serum (Rapid) None Detected (None Detect)
[2024-03-29 03:22] LABS: Eosinophils % 1 % (0-3); Lymphocytes % 25 % (10-50); Monocytes % 7 % (2-9); Neutrophils % 67 % (42-76); Total Cells Counted 100
[2024-03-29 03:23] LABS: Platelet Estimate Normal; RBC Morphology Normal
[2024-03-29] MEDS: ACETAMINOPHEN 1,000MG/100ML VIAL 1000 MG IV (03:55)
[2024-03-29 03:57] LABS: Lactate Venous 1.9 mmol/L (0.4-2.0); VBG Base Excess -3.2 mmol/L (-2.4-2.3); VBG HCO3 22.2 mmol/L (23-30); VBG Oxygen Saturation 58.2 % (50-70); VBG PCO2 40.1 mmol/L (35-51); VBG PH 7.36 mmol/L (7.31-7.41); VBG Total CO2 23.5 mmol/L (23-27)
[2024-03-29 03:59] LABS: HIV Combo NEGATIVE (Negative)
[2024-03-29 04:21] LABS: Microscopic, Urine URINE MICROSCOPIC (MICROSCOPIC)
[2024-03-29] MEDS: RINGERS SOLUTION,LACTATED 500 ML 999 ML IV (04:35)
[2024-03-29 04:37] LABS: Appearance,Urine CLEAR (Clear); Bilirubin,Urine Negative (Negative); Blood, Urine Negative (Negative); Color,Urine YELLOW (Yellow); Glucose,Urine (UA) Negative (Negative); Ketones,Urine Negative (Negative); Leukocyte Esterase,Urine 1+ (Negative); Nitrate,Urine Negative (Negative); Protein,Urine Negative (Negative); Urobilinogen,Urine 0.2 EU/dl (0.2)
[2024-03-29 04:46] LABS: Bacteria,Urine Trace /lpf; Squamous Epithelial Cell,Urine Occasional #/hpf (0-5)
--- NOTE | 2024-03-29 04:46 | PC.NURSE ---
Report given to STEPHANIE Cope
[2024-03-29 04:53] LABS: Adenovirus,PCR Not Detected (NotDetected); Bordetella Pertussis Not Detected (NotDetected); Chlamydophila Pneumoniae, PCR Not Detected (NotDetected); Coronavirus 19, PCR Not Detected (NotDetected); Coronavirus 229E Not Detected (NotDetected); Coronavirus NL63 Not Detected (NotDetected); Coronovirus HKU1,PCR Not Detected (NotDetected); Human Metapneumovirus Not Detected (NotDetected); Influenza A, PCR Not Detected (NotDetected); Influenza AH1, 2009 Not Detected (NotDetected); Influenza AH1, PCR Not Detected (NotDetected); Influenza AH3,PCR Not Detected (NotDetected); Influenza B, PCR Not Detected (NotDetected); Mycoplasma Pneumoniae, PCR Not Detected (NotDetected); Parainfluenza 1, PCR Not Detected (NotDetected); Parainfluenza 2, PCR Not Detected (NotDetected); Parainfluenza 3, PCR Not Detected (NotDetected); Parainfluenza 4, PCR Not Detected (NotDetected); Respiratory Syncytial Virus Not Detected (NotDetected); Rhinovirus/Enterovirus Not Detected (NotDetected)
[2024-03-29] MEDS: LORATADINE 10MG TABLET 10 MG PO (05:16)
[2024-03-29 05:39] LABS: Reflex Lactic Add Lactic Reflex
[2024-03-29 05:46] LABS: Basophils % 0.1 % (0.1-2.0); Hematocrit 30.6 % (37.0-47.0); Lymphocytes # 1.8 K/mm3 (0.7-4.5); Lymphocytes % 13.2 % (10-50); Mean Corpuscular Hemoglobin 26.6 pg (27.0-31.2); Mean Corpuscular Volume 85.7 fl (81-99); Mean Platelet Volume 9.9 fl (7.4-10.4); Monocytes % 7.1 % (1.7-9.3); Neutrophils # 10.7 K/mm3 (1.8-7.8); Neutrophils % 79.3 % (37.0-80.0); Platelet Count 181 K/mm3 (142-424); Red Blood Count 3.57 M/mm3 (4.20-5.40); Red Cell Distribution Width 13.6 % (11.5-17.5); White Blood Count 13.5 K/mm3 (4.8-10.8)
[2024-03-29 05:49] LABS: Lactic Acid Follow Up (RFLX 1) 2.4 mmol/L (0.7-2.1)
[2024-03-29 06:00] LABS: Alanine Aminotransferase 30 U/L (12-78); Albumin Level 2.6 g/dl (3.5-5.0); Albumin/Globulin Ratio 1.4 (1.1-1.8); Alkaline Phosphatase 77 U/L (38-126); Anion Gap 12.9 mEq/L (5-15); Aspartate Amino Transferase 46 U/L (14-36); Blood Urea Nitrogen 31 mg/dl (7-17); Calcium 7.6 mg/dl (8.4-10.2); Carbon Dioxide 22 mmol/L (22.0-30.0); Chloride 107 mmol/L (98-107); Creatinine Clearance Estimated 59 mL/min (50-200); Estimated Glomerular Filt Rate 48 ml/min (>60); GFR (African American) 58 ML/MIN (>60); Globulin 1.9 g/dL (1.3-3.2); Glucose 155 mg/dl (74-100); Magnesium 1.3 mg/dl (1.6-2.3); Potassium 3.9 mmoL/L (3.5-5.1); Sodium 138 mmol/L (136-145); Total Protein,Serum 4.5 g/dl (6.3-8.2)
[2024-03-29 06:07] LABS: Bilirubin,Total 0.1 mg/dl (0.2-1.3); Hemoglobin 9.5 g/dL (12.2-16.2)
[2024-03-29 06:14] LABS: Coronavirus OC43 Detected (NotDetected)
[2024-03-29] MEDS: NOREPINEPHRINE BITARTRATE/D5W 8 MG/250 ML PLAST..BAG 15 MG IV (06:16)
[2024-03-29] MEDS: LEVALBUTEROL 1.25MG/3ML NEB 1.25 MG IH ×3 (06:25→18:30)
[2024-03-29] MEDS: BUDESONIDE 0.5MG/2ML NEB 0.5 MG IH ×2 (06:25→18:30)
--- NOTE | 2024-03-29 06:44 | P.HP_ITS ---
History of Present Illness *Admission Date: 03/29/24 *Reason for visit:: Altered mentation *History of present illness: Elizabeth dejesus is 78-year-old female with a medical history significant for CVA with left eyelid droop, hypertension, recurrent UTI, diabetes who presents from [facility] due to alteration in mental status, nausea/vomiting, and shortness of breath. Patient is currently encephalopathic and history was not able to be obtained. Workup in the ED significant for tachycardia, tachypnea, fever 101.3, leukocytosis. VBG showed acute pCO2 retention with improvement after Vapotherm. Continues to be encephalopathic. Case discussed with ED provider and decision was made to admit patient for acute hypoxic, hypercapnic respiratory failure with community-acquired pneumonia, UTI. [facility] Disclaimer: The information contained in this section may have been updated after the patient was seen, as this information can be updated by other users. Medical History Diabetes mellitus Anxiety Dementia Abnormal cardiovascular stress test Atypical angina Abnormal electrocardiogram [ECG] [EKG] Essential (primary) hypertension Syncope HCAP (healthcare-associated pneumonia) Obesity (BMI 30-39.9) Acute kidney injury Community acquired pneumonia Low back pain Compression fracture Chronic back pain Major depressive disorder, recurrent, unspecified Dizziness, nonspecific Pre-syncope Hypertension Sinusitis CVA (cerebral vascular accident) Hyperlipidemia, unspecified Type 2 diabetes mellitus without complications Unspecified cataract Family History Other No significant family history Social History Smoking Status: Never smoker second hand exposure: No alcohol intake: never substance use type: denies use current occupational status: retired Travel in the last 8 weeks: None household members: other housing: senior care current occupational exposures/hazards: No caffeine: No Other Medical History Have you received the Flu Vaccine for this season: Yes Have you received the Pneumonia Vaccine: Yes Meds Home Medications and Allergies Home Medications ?Medication ?Instructions ?Recorded ?Confirmed ?Type acetaminophen 500 mg tablet 1,000 mg PO Q6HP PRN PAIN/FEVER 05/01/17 03/29/24 History (Tylenol Extra Strength) aspirin 81 mg chewable tablet 81 mg PO DAILY Heart disease 05/01/17 03/29/24 History bisacodyl 10 mg rectal suppository 10 mg IA DIRECTED PRN 05/01/17 03/29/24 History Constipation clopidogrel 75 mg tablet 75 mg PO DAILY PLATELET INHIB[employer]OR 05/01/17 03/29/24 History donepezil 10 mg tablet 10 mg PO HS DEMENTIA 05/01/17 03/29/24 History loperamide 2 mg capsule 2 mg PO Q3HP PRN Diarrhea 05/01/17 03/29/24 History memantine 10 mg tablet 10 mg PO BID DEMENTIA 05/01/17 03/29/24 History venlafaxine 150 mg 150 mg PO DAILY MOOD 05/01/17 03/29/24 History capsule,extended release 24 hr atorvastatin 80 mg tablet 80 mg PO HS Cholesterol 03/31/21 03/29/24 History melatonin 3 mg tablet 3 mg PO HS SLEEP 03/31/21 03/29/24 History ondansetron HCl 4 mg tablet 4 mg PO Q6HP PRN Nausea And 03/31/21 03/29/24 History Vomiting sennosides 8.6 mg-docusate sodium 2 tab-cap PO DAILY PRN bowel 02/13/23 03/29/24 History 50 mg tablet (Senexon-S) clonazepam 1 mg tablet 0.5 mg PO DAILY 04/07/23 03/29/24 History clonazepam 1 mg tablet 2 mg PO 1600 08/19/23 03/29/24 History linagliptin 5 mg tablet (Tradjenta) 5 mg PO DAILY 08/19/23 03/29/24 History brexpiprazole 3 mg tablet (Rexulti) 3 mg PO DAILY 08/29/23 03/29/24 History guaifenesin 100 mg/5 mL oral liquid 200 mg (10 mL) PO Q4H PRN cough 09/29/23 03/29/24 Rx #1,000 mL acetaminophen 300 mg-codeine 30 mg 1 tab PO BID PRN Moderate Pain #60 02/16/24 03/29/24 Rx tablet tabs levothyroxine 88 mcg tablet 88 mcg PO DAILY 02/16/24 03/29/24 History bisoprolol fumarate 5 mg tablet 2.5 mg (1/2 x 5 mg) PO DAILY 30 03/27/24 03/29/24 Rx days #15 tabs calcium carbonate (Oyster Shell 500 mg PO BID 03/29/24 03/29/24 History Calcium 500) insulin glargine 100 unit/mL (3 8 unit SQ HS 03/29/24 03/29/24 History mL) subcutaneous pen (Basaglar KwikPen U-100 Insulin) New Prescriptions to Start Prescriptions: Allergies Allergy/AdvReac Type Severity Reaction Status Date / Time diphenhydramine (From Allergy Unknown Verified 02/16/24 13:27 BENADRYL) Exam Data for Last 24 hours Vital signs and Labs for Last 24 Hours: Temp Pulse Resp BP Pulse Ox O2 Del Method O2 Flow Rate 99.0 F 74 19 114/53 L 97 Vapotherm 20 03/29/24 04:50 03/29/24 06:23 03/29/24 04:50 03/29/24 04:50 03/29/24 06:40 03/29/24 06:40 03/29/24 06:40 FiO2 45 03/29/24 06:40 Laboratory Results - last 24 hr 03/29/24 01:27: WBC 17.2 H, RBC 4.56, Hgb 12.1 L, Hct 39.7, MCV 87.1, MCH 26.5 L , MCHC 30.5 L, RDW 13.7, Plt Count 299, MPV 10.0, Neut % (Auto) 62.0, Lymph % (Auto) 31.8, [place] % (Auto) 4.3, Eos % (Auto) 1.3, Baso % (Auto) 0.3, Neut # (Auto) 10.7 H, Lymph # (Auto) 5.5 H, [place] # (Auto) 0.7, Eos # (Auto) 0.2, Baso # (Auto) 0.1, Total Counted 100, Neutrophils % (Manual) 67, Lymphocytes % (Manual) 25, Monocytes % (Manual) 7, Eosinophils % (Manual) 1, Platelet Estimate Normal, RBC Morphology Normal, Sodium 140, Potassium 4.6, Chloride 104, Carbon Dioxide 23, Anion Gap 17.6 H, BUN 34 H, Creatinine 1.30 H, Estimated Creat Clear 50, Estimated GFR 40 L, Est GFR ( Amer) 48 L, Glucose 166 H, Calcium 8.5, Total Bilirubin 0.2, AST 32, ALT 30, Alkaline Phosphatase 100, Troponin I < 0.01, NT-Pro-B Natriuret Pep 287, Total Protein 6.2 L, Albumin 3.7, Globulin 2.5, Albumin/Globulin Ratio 1.5, Acetone Level None detected, HIV Ag/Ab Combo Qual Negative 03/29/24 01:52: VBG pH 7.17 L, VBG pCO2 59.3 H, VBG pO2 33.7, VBG HCO3 21.3 L, VBG Total CO2 23.2, VBG O2 Saturation 50.8, VBG Base Excess -7.1 L, VBG Lactic Acid 6.7 H 03/29/24 02:07: Lactate 4.5 H 03/29/24 03:49: VBG pH 7.36, VBG pCO2 40.1, VBG pO2 31.0, VBG HCO3 22.2 L, VBG Total CO2 23.5, VBG O2 Saturation 58.2, VBG Base Excess -3.2 L, VBG Lactic Acid 1.9 03/29/24 04:17: Urine Color Yellow, Urine Appearance Clear, Urine pH 6.0, Ur Specific [place] 1.010, Urine Protein Negative, Urine Glucose (UA) Negative, Urine Ketones Negative, Urine Blood Negative, Urine Nitrate Negative, Urine Bilirubin Negative, Urine Urobilinogen 0.2, Ur Leukocyte Esterase 1+ A, Urine WBC 10-20, Ur Squamous Epith Cells Occasional, Urine Bacteria Trace 03/29/24 04:44: Chlamy pneumoniae PCR Not detected, Adenovirus (PCR) Not detected, B. pertussis DNA (PCR) Not detected, Coronavirus OC43 (PCR) Detected A , Coronavirus HKU1 (PCR) Not detected, Coronavirus 229E (PCR) Not detected, SARS-CoV-2 (PCR) Not detected, Coronavirus NL63 (PCR) Not detected, Human Metapneumovir PCR Not detected, Influenza A (H1) PCR Not detected, Influ A (H1N1/09) PCR Not detected, Influenza A (H3) PCR Not detected, Influenza Type A (PCR) Not detected, Influenza Type B (PCR) Not detected, M. pneumoniae (PCR) Not detected, Parainfluenza 1 (PCR) Not detected, Parainfluenza 2 (PCR) Not detected, Parainfluenza 3 (PCR) Not detected, Parainfluenza 4 (PCR) Not detected, RSV (PCR) Not detected, Entero/Rhino (PCR) Not detected 03/29/24 05:20: WBC 13.5 H, RBC 3.57 L, Hgb 9.5 L D, Hct 30.6 L, MCV 85.7, MCH 26.6 L, MCHC 31.0 L, RDW 13.6, Plt Count 181 D, MPV 9.9, Neut % (Auto) 79.3, Lymph % (Auto) 13.2, [place] % (Auto) 7.1, Eos % (Auto) 0.0 L, Baso % (Auto) 0.1, Neut # (Auto) 10.7 H, Lymph # (Auto) 1.8, [place] # (Auto) 1.0, Eos # (Auto) 0.0, Baso # (Auto) 0.0, Sodium 138, Potassium 3.9, Chloride 107, Carbon Dioxide 22, Anion Gap 12.9, BUN 31 H, Creatinine 1.10 H, Estimated Creat Clear 59, Estimated GFR 48 L, Est GFR ( Amer) 58 L D, Glucose 155 H, Lactate 2.4 H, Calcium 7.6 L, Magnesium 1.3 L, Total Bilirubin 0.1 L, AST 46 H D, ALT 30, Alkaline Phosphatase 77, Total Protein 4.5 L D, Albumin 2.6 L D, Globulin 1.9, Albumin/Globulin Ratio 1.4 I & O for Last 24 hours: Intake & Output 03/26/24 03/27/24 03/28/24 03/29/24 23:59 23:59 23:59 23:59 Intake Total 5.75 / 5.75 Balance 5.75 / 5.75 Weight 85.502 kg Constitutional Comments: Somnolent but arousable to sternal rub *Routine HEENT Exam Head: Present normocephalic Eye: Present EOMI and PERRL ENT: Present mucous membranes moist *Routine Neck Exam Neck: Present supple; Absent lymphadenopathy *Routine Respiratory Exam Respiratory: Present CTA bilaterally *Routine Cardiovascular Exam Cardiovascular: Present RRR *Routine Abdominal Exam Abdominal: Present soft and normoactive bowel sounds; Absent tenderness *Routine Rectal Exam Rectal:: deferred *Routine Genitalia Exam Genitalia:: deferred *Routine Extremities Exam Extremities: Absent cyanosis, clubbing or edema *Routine Skin Exam Skin: Present warm; Absent rash *Routine Neurological Exam Neurological: Present alert Assessment and Plan *Assessment and plan (1) Hypercarbia: Status: Acute Category: Medical Code(s): R06.89 - Other abnormalities of breathing (2) Acute hypoxic respiratory failure: Status: Acute Category: Medical Code(s): J96.01 - Acute respiratory failure with hypoxia (3) Sepsis: Status: Acute Category: Medical Code(s): A41.9 - Sepsis, unspecified organism Plan Elizabeth dejesus is 78-year-old female with a medical history significant for CVA with left eyelid droop, hypertension, recurrent UTI, diabetes who presents from [facility] due to alteration in mental status, nausea/vomiting, and shortness of breath. Patient is currently encephalopathic and history was not able to be obtained. Workup in the ED significant for tachycardia, tachypnea, fever 101.3, leukocytosis. VBG showed acute pCO2 retention with improvement after Vapotherm. Continues to be encephalopathic. Case discussed with ED provider and decision was made to admit patient for acute hypoxic, hypercapnic respiratory failure with community-acquired pneumonia, UTI. #Acute metabolic encephalopathy #Acute hypoxic, hypercapnic respiratory failure #Suspected bibasilar pneumonia #Septic shock #Coronavirus ? Initial hypercapnic VBG improved with just Vapotherm. Currently on Vapotherm 20 L 45%. ? Patient is very somnolent but arousable, suspect multifactorial given pneumonia, coronavirus, UTI. ? Presented with leukocytosis, tachycardia, tachypnea, fever of 101.3. Given 2.5 sepsis bolus in the ED, and vancomycin and Zosyn. WBC improved from 17.2- 13.5. ? CTA chest shows bibasilar opacities. ? Respiratory panel positive for coronavirus, but older strain. ? IV ceftriaxone, azithromycin day 1. ? IV remdesivir, Decadron 6 mg daily ordered. Will need to discuss with pulmonology in the morning whether this is needed for the older strain of coronavirus. ? Started Levophed at 8 mcg as MAPs were in mid 50s. ? Continue DuoNebs, Pulmicort for now. Can be discontinued if less suspicious for COPD. ? Follow-up sputum, blood cultures. ? Pulmonology consulted, pending further recommendations. #UTI ? UA grossly abnormal, pending urine culture. ? IV ceftriaxone day 1. #Hypothyroidism ? Resume home levothyroxine 88 mcg. ? Obtain TFTs once more stable and not in critical condition. #History of CVA ? Continue home aspirin, Plavix, statin. #Mood disorder #Anxiety/depression #Dementia ? Hold home proxy Paxil, clonazepam, donepezil, melatonin, memantine, venlafaxine given encephalopathy. Full code DVT prophylaxis: Lovenox 40 mg.
[2024-03-29 06:48] LABS: Lactate Venous 1.9 mmol/L (0.4-2.0); VBG Base Excess -3.9 mmol/L (-2.4-2.3); VBG HCO3 21.4 mmol/L (23-30); VBG Oxygen Saturation 74.9 % (50-70); VBG PH 7.37 mmol/L (7.31-7.41); VBG PO2 39.6 mmol/L (28-40); VBG Total CO2 22.6 mmol/L (23-27)
[2024-03-29] MEDS: AZITHROMYCIN 500 MG in 0.9 % SODIUM CHLORIDE 250 ML 250 MG IV (06:51)
[2024-03-29 06:54] LABS: Troponin I 0.03 ng/ml (0.00-0.034)
[2024-03-29 07:49] LABS: Reflex Lactic (2 hrs) Add Lactic Reflex
--- NOTE | 2024-03-29 08:00 | SW/DCPLANNER ---
This patient currently resides at [facility] level of care. Updated patient information will be faxed to Destinee lee/ [facility]. Discharge date is unknown at this time. I will continue to follow up.
--- NOTE | 2024-03-29 08:06 | P.CONPHA_ITS ---
Pharmacy Intervention Comments: MEDICATION RECONCILIATION COMPLETED ON PATIENT USING MAR FROM [facility]. -FREDIS NARVAEZ, DICKD
--- NOTE | 2024-03-29 08:06 | HMH.PHAINT1 ---
Pharmacy Intervention Comments: MEDICATION RECONCILIATION COMPLETED ON PATIENT USING MAR FROM [facility]. -FREDIS NARVAEZ, DICKD
[2024-03-29 08:34] LABS: Lactic Acid Follow up (RFLX 2) 1.4 mmol/L (0.7-2.1)
[2024-03-29 08:47] LABS: Troponin I 0.03 ng/ml (0.00-0.034)
[2024-03-29] MEDS: ENOXAPARIN 40MG/0.4ML SYRINGE 40 MG SUBCUT (09:10)
--- NOTE | 2024-03-29 09:23 | EXP.PULM.CON ---
History of Present Illness History of present illness: Patient lethargic, barely responding to verbal stimuli. Much of the history is obtained from chart review. Ms. Polanco is a 78-year-old female with reported history of CVA hypertension recurrent UTI diabetes mellitus presented from [facility] with altered mentation respiratory distress and pulmonary was called for further evaluation and management. Febrile with a Tmax of 101.3. Hemodynamically stable. Neutrophilic predominant leukocytosis. Respiratory viral PCR positive for coronavirus OC43. [facility] Disclaimer: The information contained in this section may have been updated after the patient was seen, as this information can be updated by other users. Medical History (Updated 03/29/24 @ 10:43 by Carl Diego MD) Viral pneumonia Pneumonia Diabetes mellitus Anxiety Dementia Abnormal cardiovascular stress test Atypical angina Abnormal electrocardiogram [ECG] [EKG] Essential (primary) hypertension Syncope HCAP (healthcare-associated pneumonia) Obesity (BMI 30-39.9) Acute kidney injury Community acquired pneumonia Low back pain Compression fracture Chronic back pain Major depressive disorder, recurrent, unspecified Dizziness, nonspecific Pre-syncope Hypertension Sinusitis CVA (cerebral vascular accident) Hyperlipidemia, unspecified Type 2 diabetes mellitus without complications Unspecified cataract Family History Other No significant family history Social History Smoking Status: Never smoker second hand exposure: No alcohol intake: never substance use type: denies use current occupational status: retired Travel in the last 8 weeks: None household members: other housing: [facility] current occupational exposures/hazards: No caffeine: No Review of Systems Review of Systems Review of systems:: unable to obtain Pulmonology Exam Inpatient Vital signs and Labs for Last 24 Hours: Temp Pulse Resp BP Pulse Ox O2 Del Method O2 Flow Rate 99.6 F 74 24 105/55 L 96 Vapotherm 25 03/29/24 07:02 03/29/24 07:00 03/29/24 07:00 03/29/24 07:00 03/29/24 07:00 03/29/24 07:00 03/29/24 07:00 FiO2 45 03/29/24 06:40 Laboratory Results - last 24 hr 03/29/24 01:27: WBC 17.2 H, RBC 4.56, Hgb 12.1 L, Hct 39.7, MCV 87.1, MCH 26.5 L, MCHC 30.5 L, RDW 13.7, Plt Count 299, MPV 10.0, Neut % (Auto) 62.0, Lymph % (Auto) 31.8, [place] % (Auto) 4.3, Eos % (Auto) 1.3, Baso % (Auto) 0.3, Neut # (Auto) 10.7 H, Lymph # (Auto) 5.5 H, [place] # (Auto) 0.7, Eos # (Auto) 0.2, Baso # (Auto) 0.1, Total Counted 100, Neutrophils % (Manual) 67, Lymphocytes % (Manual) 25, Monocytes % (Manual) 7, Eosinophils % (Manual) 1, Platelet Estimate Normal, RBC Morphology Normal, Sodium 140, Potassium 4.6, Chloride 104, Carbon Dioxide 23, Anion Gap 17.6 H, BUN 34 H, Creatinine 1.30 H, Estimated Creat Clear 50, Estimated GFR 40 L, Est GFR ( Amer) 48 L, Glucose 166 H, Calcium 8.5, Total Bilirubin 0.2, AST 32, ALT 30, Alkaline Phosphatase 100, Troponin I < 0.01, NT-Pro-B Natriuret Pep 287, Total Protein 6.2 L, Albumin 3.7, Globulin 2.5, Albumin/Globulin Ratio 1.5, Acetone Level None detected, HIV Ag/Ab Combo Qual Negative 03/29/24 01:52: VBG pH 7.17 L, VBG pCO2 59.3 H, VBG pO2 33.7, VBG HCO3 21.3 L, VBG Total CO2 23.2, VBG O2 Saturation 50.8, VBG Base Excess -7.1 L, VBG Lactic Acid 6.7 H 03/29/24 02:07: Lactate 4.5 H 03/29/24 03:49: VBG pH 7.36, VBG pCO2 40.1, VBG pO2 31.0, VBG HCO3 22.2 L, VBG Total CO2 23.5, VBG O2 Saturation 58.2, VBG Base Excess -3.2 L, VBG Lactic Acid 1.9 03/29/24 04:17: Urine Color Yellow, Urine Appearance Clear, Urine pH 6.0, Ur Specific [place] 1.010, Urine Protein Negative, Urine Glucose (UA) Negative, Urine Ketones Negative, Urine Blood Negative, Urine Nitrate Negative, Urine Bilirubin Negative, Urine Urobilinogen 0.2, Ur Leukocyte Esterase 1+ A, Urine WBC 10-20, Ur Squamous Epith Cells Occasional, Urine Bacteria Trace 03/29/24 04:44: Chlamy pneumoniae PCR Not detected, Adenovirus (PCR) Not detected, B. pertussis DNA (PCR) Not detected, Coronavirus OC43 (PCR) Detected A, Coronavirus HKU1 (PCR) Not detected, Coronavirus 229E (PCR) Not detected, SARS-CoV-2 (PCR) Not detected, Coronavirus NL63 (PCR) Not detected, Human Metapneumovir PCR Not detected, Influenza A (H1) PCR Not detected, Influ A (H1N1/09) PCR Not detected, Influenza A (H3) PCR Not detected, Influenza Type A (PCR) Not detected, Influenza Type B (PCR) Not detected, M. pneumoniae (PCR) Not detected, Parainfluenza 1 (PCR) Not detected, Parainfluenza 2 (PCR) Not detected, Parainfluenza 3 (PCR) Not detected, Parainfluenza 4 (PCR) Not detected, RSV (PCR) Not detected, Entero/Rhino (PCR) Not detected 03/29/24 05:20: WBC 13.5 H, RBC 3.57 L, Hgb 9.5 L D, Hct 30.6 L, MCV 85.7, MCH 26.6 L, MCHC 31.0 L, RDW 13.6, Plt Count 181 D, MPV 9.9, Neut % (Auto) 79.3, Lymph % (Auto) 13.2, [place] % (Auto) 7.1, Eos % (Auto) 0.0 L, Baso % (Auto) 0.1, Neut # (Auto) 10.7 H, Lymph # (Auto) 1.8, [place] # (Auto) 1.0, Eos # (Auto) 0.0, Baso # (Auto) 0.0, Sodium 138, Potassium 3.9, Chloride 107, Carbon Dioxide 22, Anion Gap 12.9, BUN 31 H, Creatinine 1.10 H, Estimated Creat Clear 59, Estimated GFR 48 L, Est GFR ( Amer) 58 L D, Glucose 155 H, Lactate 2.4 H, Calcium 7.6 L, Magnesium 1.3 L, Total Bilirubin 0.1 L, AST 46 H D, ALT 30, Alkaline Phosphatase 77, Troponin I 0.03, Total Protein 4.5 L D, Albumin 2.6 L D, Globulin 1.9, Albumin/Globulin Ratio 1.4 03/29/24 06:28: VBG pH 7.37, VBG pCO2 38.0, VBG pO2 39.6, VBG HCO3 21.4 L, VBG Total CO2 22.6 L, VBG O2 Saturation 74.9 H, VBG Base Excess -3.9 L, VBG Lactic Acid 1.9 03/29/24 08:15: Lactate 1.4, Troponin I 0.03 I & O for Labs for Last 24 Hours: Intake & Output 03/26/24 03/27/24 03/28/24 03/29/24 23:59 23:59 23:59 23:59 Intake Total 18.688 / 18.688 Output Total 0 / 0 Balance 18.688 / 18.688 Weight 188 lb 8 oz Constitutional: Present severe distress Head: Present normocephalic and atraumatic ENT: Present normal exam, normal oropharynx and mucous membranes moist Neck: Present normal inspection and full ROM Respiratory: Present respiratory distress, wheezes, diminished air movement and able to speak in complete sentences Cardiac: Present S1/S2, Tachycardia and radial pulses present GI: Present soft and distention; Absent tenderness or guarding Rectal (female): Present deferred (female): Present deferred Skin: Present intact; Absent cyanosis or jaundice Neuro: Absent alert, awake or oriented x 3 Extremities: Present normal inspection; Absent clubbing or cyanosis Meds Home Medications and Allergies Home Medications ?Medication ?Instructions ?Recorded ?Confirmed ?Type acetaminophen 500 mg tablet 1,000 mg PO Q6HP PRN Mild Pain 05/01/17 03/29/24 History (Tylenol Extra Strength) (Scale Score 1-4) aspirin 81 mg chewable tablet 81 mg PO DAILY Heart disease 05/01/17 03/29/24 History bisacodyl 10 mg rectal suppository 10 mg [place] Q3D PRN Constipation 05/01/17 03/29/24 History clopidogrel 75 mg tablet 75 mg PO DAILY 05/01/17 03/29/24 History donepezil 10 mg tablet 10 mg PO HS 05/01/17 03/29/24 History loperamide 2 mg capsule 2 mg PO Q3HP PRN Diarrhea 05/01/17 03/29/24 History memantine 10 mg tablet 10 mg PO BID 05/01/17 03/29/24 History venlafaxine 150 mg 150 mg PO DAILY 05/01/17 03/29/24 History capsule,extended release 24 hr atorvastatin 80 mg tablet 80 mg PO HS 03/31/21 03/29/24 History melatonin 3 mg tablet 3 mg PO HS 03/31/21 03/29/24 History ondansetron HCl 4 mg tablet 4 mg PO Q6HP PRN Nausea And 03/31/21 03/29/24 History Vomiting sennosides 8.6 mg-docusate sodium 2 tab-cap PO DAILYP PRN 02/13/23 03/29/24 History 50 mg tablet (Senexon-S) Constipation clonazepam 1 mg tablet 0.5 mg PO DAILY 04/07/23 03/29/24 History clonazepam 1 mg tablet 2 mg PO 1600 08/19/23 03/29/24 History linagliptin 5 mg tablet (Tradjenta) 5 mg PO DAILY 08/19/23 03/29/24 History brexpiprazole 3 mg tablet (Rexulti) 3 mg PO DAILY 08/29/23 03/29/24 History levothyroxine 88 mcg tablet 88 mcg PO DAILY 02/16/24 03/29/24 History bisoprolol fumarate 5 mg tablet 2.5 mg (1/2 x 5 mg) PO DAILY 30 03/27/24 03/29/24 Rx days #15 tabs acetaminophen 300 mg-codeine 30 mg 1 tab PO BIDP PRN Moderate Pain 03/29/24 03/29/24 History tablet (Scale Score 5-6) calcium carbonate (Oyster Shell 500 mg PO BID 03/29/24 03/29/24 History Calcium 500) guaifenesin 100 mg/5 mL oral liquid 200 mg PO Q4HP PRN cough 03/29/24 03/29/24 History insulin glargine 100 unit/mL (3 8 unit SQ HS 03/29/24 03/29/24 History mL) subcutaneous pen (Kristel Wong U-100 Insulin) New Prescriptions to Start Prescriptions: Allergies Allergy/AdvReac Type Severity Reaction Status Date / Time diphenhydramine (From Allergy Unknown Verified 02/16/24 13:27 BENADRYL) Results Laboratory Findings 03/29/24 05:20 03/29/24 05:20 Abnormal lab findings: Abnormal Labs 03/29/24 03/29/24 03/29/24 01:27 01:52 02:07 WBC 17.2 H RBC Hgb 12.1 L Hct MCH 26.5 L MCHC 30.5 L Eos % (Auto) Neut # (Auto) 10.7 H Lymph # (Auto) 5.5 H VBG pH 7.17 L VBG pCO2 59.3 H VBG HCO3 21.3 L VBG Total CO2 VBG O2 Saturation VBG Base Excess -7.1 L VBG Lactic Acid 6.7 H Anion Gap 17.6 H BUN 34 H Creatinine 1.30 H Estimated GFR 40 L Est GFR ( Amer) 48 L Glucose 166 H Lactate 4.5 H Calcium Magnesium Total Bilirubin AST Total Protein 6.2 L Albumin Ur Leukocyte Esterase Coronavirus OC43 (PCR) 03/29/24 03/29/24 03/29/24 03:49 04:17 04:44 WBC RBC Hgb Hct MCH MCHC Eos % (Auto) Neut # (Auto) Lymph # (Auto) VBG pH VBG pCO2 VBG HCO3 22.2 L VBG Total CO2 VBG O2 Saturation VBG Base Excess -3.2 L VBG Lactic Acid Anion Gap BUN Creatinine Estimated GFR Est GFR ( Amer) Glucose Lactate Calcium Magnesium Total Bilirubin AST Total Protein Albumin Ur Leukocyte Esterase 1+ A Coronavirus OC43 (PCR) Detected A 03/29/24 03/29/24 05:20 06:28 WBC 13.5 H RBC 3.57 L Hgb 9.5 L D Hct 30.6 L MCH 26.6 L MCHC 31.0 L Eos % (Auto) 0.0 L Neut # (Auto) 10.7 H Lymph # (Auto) VBG pH VBG pCO2 VBG HCO3 21.4 L VBG Total CO2 22.6 L VBG O2 Saturation 74.9 H VBG Base Excess -3.9 L VBG Lactic Acid Anion Gap BUN 31 H Creatinine 1.10 H Estimated GFR 48 L Est GFR ( Amer) 58 L D Glucose 155 H Lactate 2.4 H Calcium 7.6 L Magnesium 1.3 L Total Bilirubin 0.1 L AST 46 H D Total Protein 4.5 L D Albumin 2.6 L D Ur Leukocyte Esterase Coronavirus OC43 (PCR) Assessment and Plan *Assessment and plan (1) Pneumonia: Status: Acute Category: Medical Code(s): J18.9 - Pneumonia, unspecified organism (2) Viral pneumonia: Status: Acute Category: Medical Code(s): J12.9 - Viral pneumonia, unspecified (3) Acute hypoxic respiratory failure: Status: Acute Category: Medical Code(s): J96.01 - Acute respiratory failure with hypoxia Plan Patient lethargic, barely responding to verbal stimuli. Much of the history is obtained from chart review. Ms. Polanco is a 78-year-old female with reported history of CVA hypertension recurrent UTI diabetes mellitus presented from [facility] with altered mentation respiratory distress and pulmonary was called for further evaluation and management. Febrile with a Tmax of 101.3. Hemodynamically stable. Neutrophilic predominant leukocytosis. Respiratory viral PCR positive for coronavirus OC43. CTA PE upon admission no evidence of pulmonary embolism bilateral lower lobe airspace disease left greater than right. Small right pleural effusion noted. ABG upon admission did not show any evidence of hypoxic/hypercarbic respiratory failure. Weaned to nasal cannula this morning. Tolerating well. Bilateral minimal wheezing appreciated. Plan: Initiate contact droplet precautions Continue nasal cannula oxygen supplementation to maintain O2 saturation of 90% and above DuoNebs every 6 hours on a scheduled basis Continue ceftriaxone azithromycin pending final culture results
--- NOTE | 2024-03-29 09:33 | ECG_ITS ---
APPROVED REPORT Exam: Resting ECG HR:66 bpm ECG Measurements Heart Rate 66 AXES MT 187 P 14 QRSd 93 QRS 30 QT 429 T -12 QTc 443 Conclusion SINUS RHYTHM NORMAL ECG UNCONFIRMED REPORT Electronically signed by : Trent Buchanan MD 03/29/2024 19:19:46
[2024-03-29 10:12] LABS: Hepatitis C Ab Qual. W/ RFX NEGATIVE (Negative)
--- NOTE | 2024-03-29 10:20 | DIET.NUTRFU ---
Chart reviewed, patient follows regular, thin liquids at [place], hx is stable. BS 166-155. Will continue regular diet at this time.
[2024-03-29] MEDS: SODIUM CHLORIDE 3% 15ML NEB 3 ML IH (13:58)
[2024-03-30] VITALS (27 sets, daily range): BP systolic 102–144; BP diastolic 51–105; PULSE 59–102; RESP 11–32; TEMP 36.4–37.8; O2SAT 93–98; BMI 32.9
[2024-03-30] MEDS: LEVALBUTEROL 1.25MG/3ML NEB 1.25 MG IH ×2 (01:00→06:14)
[2024-03-30 06:01] LABS: Alanine Aminotransferase 21 U/L (12-78); Albumin Level 2.7 g/dl (3.5-5.0); Albumin/Globulin Ratio 1.2 (1.1-1.8); Alkaline Phosphatase 73 U/L (38-126); Anion Gap 10.5 mEq/L (5-15); Aspartate Amino Transferase 23 U/L (14-36); Blood Urea Nitrogen 26 mg/dl (7-17); Calcium 7.5 mg/dl (8.4-10.2); Carbon Dioxide 25 mmol/L (22.0-30.0); Chloride 110 mmol/L (98-107); Creatinine Clearance Estimated 47 mL/min (50-200); Estimated Glomerular Filt Rate 37 ml/min (>60); GFR (African American) 44 ML/MIN (>60); Globulin 2.2 g/dL (1.3-3.2); Glucose 134 mg/dl (74-100); Magnesium 1.6 mg/dl (1.6-2.3); Potassium 3.5 mmoL/L (3.5-5.1); Sodium 142 mmol/L (136-145); Total Protein,Serum 4.9 g/dl (6.3-8.2)
[2024-03-30 06:03] LABS: Bilirubin,Total < 0.1 mg/dl (0.2-1.3)
[2024-03-30 06:05] LABS: Basophils % 0.1 % (0.1-2.0); Eosinophils # 0.1 K/mm3 (0.0-0.4); Hematocrit 28.1 % (37.0-47.0); Hemoglobin 8.8 g/dL (12.2-16.2); Lymphocytes # 2.6 K/mm3 (0.7-4.5); Mean Corpuscular HGB Conc 31.3 g/dL (31.8-35.4); Mean Corpuscular Hemoglobin 26.2 pg (27.0-31.2); Mean Corpuscular Volume 83.6 fl (81-99); Mean Platelet Volume 9.8 fl (7.4-10.4); Monocytes # 0.6 K/mm3 (0.1-1.0); Monocytes % 5.6 % (1.7-9.3); Neutrophils % 67.9 % (37.0-80.0); Platelet Count 190 K/mm3 (142-424); Red Blood Count 3.36 M/mm3 (4.20-5.40); White Blood Count 10.3 K/mm3 (4.8-10.8)
[2024-03-30] MEDS: BUDESONIDE 0.5MG/2ML NEB 0.5 MG IH (06:14)
[2024-03-30] MEDS: MAGNESIUM SULFATE IN WATER 2 GM/50 ML PIGGYBACK IV ×2 (06:43→07:51)
--- NOTE | 2024-03-30 09:33 | EXP.PULM.PN ---
Subjective *Date: 03/30/24 *Time: 12:27 Interval history: No acute respiratory vents overnight. Pulmonology Exam Inpatient Vital signs and Labs for Last 24 Hours: Temp Pulse Resp BP Pulse Ox O2 Del Method O2 Flow Rate 100.1 F H 82 25 H 118/72 93 L Nasal Cannula 2 03/30/24 08:00 03/30/24 09:00 03/30/24 09:00 03/30/24 09:00 03/30/24 09:00 03/30/24 09:00 03/30/24 09:00 FiO2 35 03/29/24 08:00 Laboratory Results - last 24 hr 03/29/24 05:20: HCV Ab FAINA w/Rflx PCR Qn Negative 03/30/24 05:23: WBC 10.3, RBC 3.36 L, Hgb 8.8 L, Hct 28.1 L, MCV 83.6, MCH 26.2 L, MCHC 31.3 L, RDW 14.0, Plt Count 190, MPV 9.8, Neut % (Auto) 67.9, Lymph % (Auto) 25.0, Evangeline % (Auto) 5.6, Eos % (Auto) 1.0, Baso % (Auto) 0.1, Neut # (Auto) 7.0, Lymph # (Auto) 2.6, Evangeline # (Auto) 0.6, Eos # (Auto) 0.1, Baso # (Auto) 0.0, Sodium 142, Potassium 3.5, Chloride 110 H, Carbon Dioxide 25, Anion Gap 10.5, BUN 26 H, Creatinine 1.40 H D, Estimated Creat Clear 47, Estimated GFR 37 L, Est GFR ( Amer) 44 L D, Glucose 134 H, Calcium 7.5 L, Magnesium 1.6 D, Total Bilirubin < 0.1 L, AST 23 D, ALT 21 D, Alkaline Phosphatase 73, Total Protein 4.9 L, Albumin 2.7 L, Globulin 2.2, Albumin/Globulin Ratio 1.2 Temp Pulse Resp BP Pulse Ox O2 Del Method O2 Flow Rate 99.6 F 74 24 105/55 L 96 Vapotherm 25 03/29/24 07:02 03/29/24 07:00 03/29/24 07:00 03/29/24 07:00 03/29/24 07:00 03/29/24 07:00 03/29/24 07:00 FiO2 45 03/29/24 06:40 Laboratory Results - last 24 hr 03/29/24 01:27: WBC 17.2 H, RBC 4.56, Hgb 12.1 L, Hct 39.7, MCV 87.1, MCH 26.5 L, MCHC 30.5 L, RDW 13.7, Plt Count 299, MPV 10.0, Neut % (Auto) 62.0, Lymph % (Auto) 31.8, Evangeline % (Auto) 4.3, Eos % (Auto) 1.3, Baso % (Auto) 0.3, Neut # (Auto) 10.7 H, Lymph # (Auto) 5.5 H, Evangeline # (Auto) 0.7, Eos # (Auto) 0.2, Baso # (Auto) 0.1, Total Counted 100, Neutrophils % (Manual) 67, Lymphocytes % (Manual) 25, Monocytes % (Manual) 7, Eosinophils % (Manual) 1, Platelet Estimate Normal, RBC Morphology Normal, Sodium 140, Potassium 4.6, Chloride 104, Carbon Dioxide 23, Anion Gap 17.6 H, BUN 34 H, Creatinine 1.30 H, Estimated Creat Clear 50, Estimated GFR 40 L, Est GFR ( Amer) 48 L, Glucose 166 H, Calcium 8.5, Total Bilirubin 0.2, AST 32, ALT 30, Alkaline Phosphatase 100, Troponin I < 0.01, NT-Pro-B Natriuret Pep 287, Total Protein 6.2 L, Albumin 3.7, Globulin 2.5, Albumin/Globulin Ratio 1.5, Acetone Level None detected, HIV Ag/Ab Combo Qual Negative 03/29/24 01:52: VBG pH 7.17 L, VBG pCO2 59.3 H, VBG pO2 33.7, VBG HCO3 21.3 L, VBG Total CO2 23.2, VBG O2 Saturation 50.8, VBG Base Excess -7.1 L, VBG Lactic Acid 6.7 H 03/29/24 02:07: Lactate 4.5 H 03/29/24 03:49: VBG pH 7.36, VBG pCO2 40.1, VBG pO2 31.0, VBG HCO3 22.2 L, VBG Total CO2 23.5, VBG O2 Saturation 58.2, VBG Base Excess -3.2 L, VBG Lactic Acid 1.9 03/29/24 04:17: Urine Color Yellow, Urine Appearance Clear, Urine pH 6.0, Ur Specific [place] 1.010, Urine Protein Negative, Urine Glucose (UA) Negative, Urine Ketones Negative, Urine Blood Negative, Urine Nitrate Negative, Urine Bilirubin Negative, Urine Urobilinogen 0.2, Ur Leukocyte Esterase 1+ A, Urine WBC 10-20, Ur Squamous Epith Cells Occasional, Urine Bacteria Trace 03/29/24 04:44: Chlamy pneumoniae PCR Not detected, Adenovirus (PCR) Not detected, B. pertussis DNA (PCR) Not detected, Coronavirus OC43 (PCR) Detected A, Coronavirus HKU1 (PCR) Not detected, Coronavirus 229E (PCR) Not detected, SARS-CoV-2 (PCR) Not detected, Coronavirus NL63 (PCR) Not detected, Human Metapneumovir PCR Not detected, Influenza A (H1) PCR Not detected, Influ A (H1N1/09) PCR Not detected, Influenza A (H3) PCR Not detected, Influenza Type A (PCR) Not detected, Influenza Type B (PCR) Not detected, M. pneumoniae (PCR) Not detected, Parainfluenza 1 (PCR) Not detected, Parainfluenza 2 (PCR) Not detected, Parainfluenza 3 (PCR) Not detected, Parainfluenza 4 (PCR) Not detected, RSV (PCR) Not detected, Entero/Rhino (PCR) Not detected 03/29/24 05:20: WBC 13.5 H, RBC 3.57 L, Hgb 9.5 L D, Hct 30.6 L, MCV 85.7, MCH 26.6 L, MCHC 31.0 L, RDW 13.6, Plt Count 181 D, MPV 9.9, Neut % (Auto) 79.3, Lymph % (Auto) 13.2, Evangeline % (Auto) 7.1, Eos % (Auto) 0.0 L, Baso % (Auto) 0.1, Neut # (Auto) 10.7 H, Lymph # (Auto) 1.8, Evangeline # (Auto) 1.0, Eos # (Auto) 0.0, Baso # (Auto) 0.0, Sodium 138, Potassium 3.9, Chloride 107, Carbon Dioxide 22, Anion Gap 12.9, BUN 31 H, Creatinine 1.10 H, Estimated Creat Clear 59, Estimated GFR 48 L, Est GFR ( Amer) 58 L D, Glucose 155 H, Lactate 2.4 H, Calcium 7.6 L, Magnesium 1.3 L, Total Bilirubin 0.1 L, AST 46 H D, ALT 30, Alkaline Phosphatase 77, Troponin I 0.03, Total Protein 4.5 L D, Albumin 2.6 L D, Globulin 1.9, Albumin/Globulin Ratio 1.4 03/29/24 06:28: VBG pH 7.37, VBG pCO2 38.0, VBG pO2 39.6, VBG HCO3 21.4 L, VBG Total CO2 22.6 L, VBG O2 Saturation 74.9 H, VBG Base Excess -3.9 L, VBG Lactic Acid 1.9 03/29/24 08:15: Lactate 1.4, Troponin I 0.03 I & O for Labs for Last 24 Hours: Intake & Output 03/27/24 03/28/24 03/29/24 03/30/24 23:59 23:59 23:59 23:59 Intake Total 2050.438 / 2050.438 0 / 0 Output Total 0 / 0 925 / 925 Balance 1.438 / 2051.438 -925 / -925 Weight 188 lb 8 oz 193 lb Intake & Output 03/26/24 03/27/24 03/28/24 03/29/24 23:59 23:59 23:59 23:59 Intake Total 18.688 / 18.688 Output Total 0 / 0 Balance 18.688 / 18.688 Weight 188 lb 8 oz Microbiology Reports for the Last 24 Hours: Microbiology 03/29/24 04:17 Urine,Catheterized Urine Culture - Final No growth. 03/29/24 01:50 Blood Blood Culture - Preliminary NO GROWTH AFTER 24 HOURS 03/29/24 01:50 Blood Blood Culture - Preliminary NO GROWTH AFTER 24 HOURS Constitutional: Present severe distress Head: Present normocephalic and atraumatic ENT: Present normal exam, normal oropharynx and mucous membranes moist Neck: Present normal inspection and full ROM Respiratory: Present respiratory distress, wheezes, diminished air movement and able to speak in complete sentences Cardiac: Present S1/S2, Tachycardia and radial pulses present GI: Present soft and distention; Absent tenderness or guarding Rectal (female): Present deferred (female): Present deferred Skin: Present intact; Absent cyanosis or jaundice Neuro: Absent alert, awake or oriented x 3 Extremities: Present normal inspection; Absent clubbing or cyanosis Assessment and Plan *Assessment and plan (1) Pneumonia: Status: Acute Category: Medical Code(s): J18.9 - Pneumonia, unspecified organism (2) Viral pneumonia: Status: Acute Category: Medical Code(s): J12.9 - Viral pneumonia, unspecified (3) Acute hypoxic respiratory failure: Status: Acute Category: Medical Code(s): J96.01 - Acute respiratory failure with hypoxia Plan Ms. Polanco is a 78-year-old female with reported history of CVA hypertension recurrent UTI diabetes mellitus presented from [facility] with altered mentation respiratory distress and pulmonary was called for further evaluation and management. Febrile with a Tmax of 101.3. Hemodynamically stable. Neutrophilic predominant leukocytosis. Respiratory viral PCR positive for coronavirus OC43. CTA PE upon admission no evidence of pulmonary embolism bilateral lower lobe airspace disease left greater than right. Small right pleural effusion noted. ABG upon admission did not show any evidence of hypoxic/hypercarbic respiratory failure. No significant emphysematous changes appreciated. Weaned to nasal cannula this morning. Tolerating well. Bilateral minimal wheezing appreciated. Interval update: No acute respiratory vents overnight. Improving leukocytosis. Improving oxygen requirements. Improvement in mentation, responding to painful stimuli. Plan: Continue nasal cannula oxygen supplementation to maintain O2 saturation of 90% and above Initiate Advair 250 along with DuoNebs 4 times daily as needed Continue ceftriaxone azithromycin pending final culture results
[2024-03-30] MEDS: AZITHROMYCIN 500 MG in 0.9 % SODIUM CHLORIDE 250 ML 250 MG IV (09:48)
[2024-03-30] MEDS: ENOXAPARIN 40MG/0.4ML SYRINGE 40 MG SUBCUT (09:48)
[2024-03-30] MEDS: CEFTRIAXONE 1 GM 1 GM in 0.9 % SODIUM CHLORIDE 50 ML IV (09:48)
--- NOTE | 2024-03-30 13:43 | P.DS_ITS ---
General Admission date:: 03/29/24 Discharge date: 03/30/24 HPI HPI HPI: Elizabeth dejesus is 78-year-old female with a medical history significant for CVA with left eyelid droop, hypertension, recurrent UTI, diabetes who presents from [facility] due to alteration in mental status, nausea/vomiting, and shortness of breath. Patient is currently encephalopathic and history was not able to be obtained. Workup in the ED significant for tachycardia, tachypnea, fever 101.3, leukocytosis. VBG showed acute pCO2 retention with improvement after Vapotherm. Continues to be encephalopathic. Case discussed with ED provider and decision was made to admit patient for acute hypoxic, hypercapnic respiratory failure with community-acquired pneumonia, UTI. Hospital Course Hospital Course Hospital Course: Elizabeth dejesus is 78-year-old female with a medical history significant for CVA with left eyelid droop, hypertension, recurrent UTI, diabetes who presents from [facility] due to alteration in mental status, nausea/vomiting, and shortness of breath. Patient encephalopathic on presentation. Improved very quickly within 24 hours of admission. Found to be coronavirus positive (non- COVID). Able to wean to room air by morning of discharge. Improved to baseline mentation. Overall doing better. Given her improvement clinically, stable to discharge back to her senior care for further care. Problems addressed as follows: #Acute metabolic encephalopathy #Acute hypoxic, hypercapnic respiratory failure #Suspected bibasilar pneumonia #Septic shock #Coronavirus #Urinary tract infection ? Initial hypercapnic VBG improved with just Vapotherm. Blood pressure was soft necessitating Levophed. Able to wean off by afternoon of admission. Able to wean supplemental oxygen within 24 of admission hours from Vapotherm to nasal cannula. Weaned to room air by following morning. Noted to have leukocytosis on presentation with fever of 101.3. White count improved to 10.3 by following morning. Respiratory panel positive for coronavirus. Urinalysis also abnormal concerning for UTI. Will transition antibiotics to levofloxacin to treat for a total of 5 days of antibiotic therapy. Given her improvement to room air, will discharge back to her nursing facility on Levaquin. Sputum and blood culture still pending at discharge. Pulmonology assisted with care. #Hypothyroidism: Resume home levothyroxine 88 mcg. #History of CVA: Continue home aspirin, Plavix, statin. #Mood disorder #Anxiety/depression #Dementia ? Resume home medications at discharge. Held on admission due to encephalo quang, improved to baseline mentation. Total time spent on discharge 32 minutes in counseling, documentation, chart review, and direct care with patient. Exam Data for Last 24 hours Vital signs and Labs for Last 24 Hours: Temp Pulse Resp BP Pulse Ox O2 Del Method O2 Flow Rate 99 F 72 19 123/65 98 Nasal Cannula 2 03/30/24 09:58 03/30/24 13:00 03/30/24 13:00 03/30/24 13:00 03/30/24 13:00 03/30/24 13:00 03/30/24 13:00 FiO2 35 03/29/24 08:00 Laboratory Results - last 24 hr 03/30/24 05:23: WBC 10.3, RBC 3.36 L, Hgb 8.8 L, Hct 28.1 L, MCV 83.6, MCH 26.2 L, MCHC 31.3 L, RDW 14.0, Plt Count 190, MPV 9.8, Neut % (Auto) 67.9, Lymph % (Auto) 25.0, Crane % (Auto) 5.6, Eos % (Auto) 1.0, Baso % (Auto) 0.1, Neut # (Auto) 7.0, Lymph # (Auto) 2.6, Crane # (Auto) 0.6, Eos # (Auto) 0.1, Baso # (Auto) 0.0, Sodium 142, Potassium 3.5, Chloride 110 H, Carbon Dioxide 25, Anion Gap 10.5, BUN 26 H, Creatinine 1.40 H D, Estimated Creat Clear 47, Estimated GFR 37 L, Est GFR ( Amer) 44 L D, Glucose 134 H, Calcium 7.5 L, Magnesium 1.6 D, Total Bilirubin < 0.1 L, AST 23 D, ALT 21 D, Alkaline Phosphatase 73, Total Protein 4.9 L, Albumin 2.7 L, Globulin 2.2, Albumin/Globulin Ratio 1.2 I & O for Last 24 hours: Intake & Output 03/27/24 03/28/24 03/29/24 03/30/24 23:59 23:59 23:59 23:59 Intake Total 2050.438 / 2050.438 375 / 375 Output Total 0 / 0 925 / 925 Balance 2050.438 / 2050.438 -550 / -550 Weight 85.502 kg 87.543 kg Microbiology Reports for the Last 24 Hours: Microbiology 03/29/24 04:17 Urine,Catheterized Urine Culture - Final No growth. 03/29/24 01:50 Blood Blood Culture - Preliminary NO GROWTH AFTER 24 HOURS 03/29/24 01:50 Blood Blood Culture - Preliminary NO GROWTH AFTER 24 HOURS Constitutional Constitutional: no acute distress, obese, chronically ill appearing and cooperative *Routine HEENT Exam Head: Present normocephalic Eye: Present EOMI and PERRL ENT: Present mucous membranes moist *Routine Neck Exam Neck: Present supple; Absent lymphadenopathy *Routine Respiratory Exam Respiratory: Present prolonged expiratory phase and rhonchi; Absent wheezes or crackles *Routine Cardiovascular Exam Cardiovascular: Present RRR *Routine Abdominal Exam Abdominal: Present soft and normoactive bowel sounds; Absent tenderness *Routine Rectal Exam Patient deferred: visual exam *Routine Exam Patient deferred: external exam *Routine Extremities Exam Extremities: Absent cyanosis, clubbing or edema *Routine Skin Exam Skin: Present intact and warm; Absent rash *Routine Neurological Exam Neurological: Present alert and moving all extremities; Absent altered mental status Comments: baseline mentation, oriented to self Results Data Completed and Pending Labs on day of discharge: Labs from last 24 hours 03/30/24 05:23 WBC 10.3 RBC 3.36 L Hgb 8.8 L Hct 28.1 L MCV 83.6 MCH 26.2 L MCHC 31.3 L RDW 14.0 Plt Count 190 MPV 9.8 Neut % (Auto) 67.9 Lymph % (Auto) 25.0 Crane % (Auto) 5.6 Eos % (Auto) 1.0 Baso % (Auto) 0.1 Neut # (Auto) 7.0 Lymph # (Auto) 2.6 Crane # (Auto) 0.6 Eos # (Auto) 0.1 Baso # (Auto) 0.0 Sodium 142 Potassium 3.5 Chloride 110 H Carbon Dioxide 25 Anion Gap 10.5 BUN 26 H Creatinine 1.40 H D Estimated Creat Clear 47 Estimated GFR 37 L Est GFR ( Amer) 44 L D Glucose 134 H Calcium 7.5 L Magnesium 1.6 D Total Bilirubin < 0.1 L AST 23 D ALT 21 D Alkaline Phosphatase 73 Total Protein 4.9 L Albumin 2.7 L Globulin 2.2 Albumin/Globulin Ratio 1.2 Preliminary micro results at discharge 03/29/24 01:50 Blood Culture - Preliminary Blood NO GROWTH AFTER 24 HOURS 03/29/24 01:50 Blood Culture - Preliminary Blood NO GROWTH AFTER 24 HOURS DS: Diagnosis Discharge Diagnosis (1) Pneumonia: Status: Acute Code(s): J18.9 - Pneumonia, unspecified organism (2) Viral pneumonia: Status: Acute Code(s): J12.9 - Viral pneumonia, unspecified (3) Acute hypoxic respiratory failure: Status: Acute Code(s): J96.01 - Acute respiratory failure with hypoxia (4) Hypercarbia: Status: Resolved Code(s): R06.89 - Other abnormalities of breathing (5) Diabetes mellitus: Status: Acute Code(s): E11.9 - Type 2 diabetes mellitus without complications (6) Acute UTI: Status: Acute Code(s): N39.0 - Urinary tract infection, site not specified (7) Acute encephalopathy: Status: Resolved Code(s): G93.40 - Encephalopathy, unspecified Meds Home Medications and Allergies Home Medications ?Medication ?Instructions ?Recorded ?Confirmed ?Type acetaminophen 500 mg tablet 1,000 mg PO Q6HP PRN Mild Pain 05/01/17 03/29/24 History (Tylenol Extra Strength) (Scale Score 1-4) aspirin 81 mg chewable tablet 81 mg PO DAILY Heart disease 05/01/17 03/29/24 History bisacodyl 10 mg rectal suppository 10 mg WV Q3D PRN Constipation 05/01/17 03/29/24 History clopidogrel 75 mg tablet 75 mg PO DAILY 05/01/17 03/29/24 History donepezil 10 mg tablet 10 mg PO HS 05/01/17 03/29/24 History loperamide 2 mg capsule 2 mg PO Q3HP PRN Diarrhea 05/01/17 03/29/24 History memantine 10 mg tablet 10 mg PO BID 05/01/17 03/29/24 History venlafaxine 150 mg 150 mg PO DAILY 05/01/17 03/29/24 History capsule,extended release 24 hr atorvastatin 80 mg tablet 80 mg PO HS 03/31/21 03/29/24 History melatonin 3 mg tablet 3 mg PO HS 03/31/21 03/29/24 History ondansetron HCl 4 mg tablet 4 mg PO Q6HP PRN Nausea And 03/31/21 03/29/24 History Vomiting sennosides 8.6 mg-docusate sodium 2 tab-cap PO DAILYP PRN 02/13/23 03/29/24 History 50 mg tablet (Senexon-S) Constipation clonazepam 1 mg tablet 0.5 mg PO DAILY 04/07/23 03/29/24 History linagliptin 5 mg tablet (Tradjenta) 5 mg PO DAILY 08/19/23 03/29/24 History brexpiprazole 3 mg tablet (Rexulti) 3 mg PO DAILY 08/29/23 03/29/24 History levothyroxine 88 mcg tablet 88 mcg PO DAILY 02/16/24 03/29/24 History bisoprolol fumarate 5 mg tablet 2.5 mg (1/2 x 5 mg) PO DAILY 30 03/27/24 03/29/24 Rx days #15 tabs acetaminophen 300 mg-codeine 30 mg 1 tab PO BIDP PRN Moderate Pain 03/29/24 03/29/24 History tablet (Scale Score 5-6) calcium carbonate (Oyster Shell 500 mg PO BID 03/29/24 03/29/24 History Calcium 500) guaifenesin 100 mg/5 mL oral liquid 200 mg PO Q4HP PRN cough 03/29/24 03/29/24 History insulin glargine 100 unit/mL (3 8 unit SQ HS 03/29/24 03/29/24 History mL) subcutaneous pen (Basaglar KwikPen U-100 Insulin) clonazepam 1 mg tablet 1 mg PO 1600 #30 tabs 03/30/24 Rx fluticasone 250 mcg-salmeterol 50 1 inh inhalation BIDRT 30 days #60 03/30/24 Rx mcg/dose blistr powdr for ea inhalation (Advair Diskus) levofloxacin 750 mg tablet 750 mg PO Q48H 3 days #2 tabs 03/30/24 Rx New Prescriptions to Start Prescriptions: Noel Giron fluticasone propion-salmeterol [Advair Diskus] Noel Rowell levofloxacin Noel Rowell Allergies Allergy/AdvReac Type Severity Reaction Status Date / Time diphenhydramine (From Allergy Unknown Verified 02/16/24 13:27 BENADRYL) Discharge Plan Disposition Patient Disposition: Xfer Intermediate Care Fac Condition: Fair Discharge Order Discharge Orders: Discharge Order (Routine); Ordered 03/30/24 Ordered By: Noel Rowell Follow up Plan Follow up with: Carl Diego MD [Physician] - Enter time for follow up Prescriptions/Medication Reconciliation: New fluticasone propion-salmeterol [Advair Diskus] 250-50 mcg/dose Blister With Device 1 inh inhalation BIDRT 30 Days Qty: 60 0RF levofloxacin 750 mg tablet 750 mg PO Q48H 3 Days Qty: 2 0RF Rx Instructions: first dose morning of 03/31/24 Continued Rexulti 3 mg tablet 3 mg PO DAILY levothyroxine 88 mcg tablet 88 mcg PO DAILY donepezil 10 mg tablet 10 mg PO HS venlafaxine 150 mg capsule,extended release 24hr 150 mg PO DAILY clopidogrel 75 mg tablet 75 mg PO DAILY acetaminophen [Tylenol Extra Strength] 500 mg tablet 1,000 mg PO Q6HP PRN (Reason: Mild Pain (Scale Score 1-4)) bisacodyl 10 mg suppository 10 mg WV Q3D PRN (Reason: Constipation) aspirin 81 mg tablet,chewable 81 mg PO DAILY memantine 10 mg tablet 10 mg PO BID loperamide 2 mg capsule 2 mg PO Q3HP PRN (Reason: Diarrhea) sennosides-docusate sodium [Senexon-S] 8.6-50 mg tablet 2 tab-cap PO DAILYP PRN (Reason: Constipation) clonazepam 1 mg tablet 0.5 mg PO DAILY Tradjenta 5 mg Tablet 5 mg PO DAILY calcium carbonate [Oyster Shell Calcium 500] 500 mg calcium (1,250 mg) tablet 500 mg PO BID insulin glargine [Basaglar KwikPen U-100 Insulin] 100 unit/mL (3 mL) insulin pen 8 unit SQ HS acetaminophen-codeine 300-30 mg tablet 1 tab PO BIDP PRN (Reason: Moderate Pain (Scale Score 5-6)) guaifenesin 100 mg/5 mL liquid 200 mg PO Q4HP PRN (Reason: cough) atorvastatin 80 MG tablet 80 mg PO HS ondansetron HCl 4 MG tablet 4 mg PO Q6HP PRN (Reason: Nausea And Vomiting) melatonin 3 MG tablet 3 mg PO HS Changed clonazepam 1 mg tablet 1 mg PO 1600 Qty: 30 0RF Held bisoprolol fumarate 5 mg tablet 2.5 mg PO DAILY 30 Days Qty: 15 0RF Hold Instructions: pending monitoring of her blood pressure normalization over the next week Problem Reconciliation Problems Reviewed?: Yes Patient Discharge Instructions ACTIVITY: Continue current activity DIET: continue same diet Patient Instructions: DI for Pneumonia -- Adult, DI for Sepsis -- Adult, DI for Respiratory Failure Print Language: Panamanian Providers Primary Care Provider: Provider,Referral Admit Provider: Donald Chance Attending Provider: Donald Chance
== END 2024-03-30 15:40 | DRG 871 ==
LOC: ER 04:20 → ICU 04:54
PROVIDERS: Admitting Provider Student in an Organized Health Care Education/Training Program; Emergency Provider Emergency Medicine; Visit Provider Student in an Organized Health Care Education/Training Program
DX: A41.9 Sepsis, unspecified organism (principal); G93.41 Metabolic encephalopathy; J12.9 Viral pneumonia, unspecified; J96.01 Acute respiratory failure with hypoxia; J96.02 Acute respiratory failure with hypercapnia; N39.0 Urinary tract infection, site not specified; B97.29 Other coronavirus as the cause of diseases classified elsewhere; F03.90 Unspecified dementia, unspecified severity, without behavioral disturbance, psychotic disturbance, mood disturbance, and anxiety; I10 Essential (primary) hypertension; E03.9 Hypothyroidism, unspecified; E11.9 Type 2 diabetes mellitus without complications; E78.5 Hyperlipidemia, unspecified; F32.9 Major depressive disorder, single episode, unspecified; R41.0 Disorientation, unspecified; E66.9 Obesity, unspecified; Z68.32 Body mass index [BMI] 32.0-32.9, adult; Z86.73 Personal history of transient ischemic attack (TIA), and cerebral infarction without residual deficits; Z79.82 Long term (current) use of aspirin; Z79.02 Long term (current) use of antithrombotics/antiplatelets; Z79.890 Hormone replacement therapy; Z79.84 Long term (current) use of oral hypoglycemic drugs; Z79.899 Other long term (current) drug therapy
CPT/HCPCS: 36415; 70450; 71045; 71275; 80053; 81001; 82009; 82803; 83605; 83735; 83880; 84484; 85007; 85025; 86803; 87040; 87086; 87389; 87633; 93005; 94640; 94760; 94761; 99291; J0131; J0456; J0696; J1650; J2405; J2543; J3372; J3475; J7050; J7120; J7614; J7620; Q9967

== ENCOUNTER 2024-06-25 15:37 | Outpatient (CLI) | payer MEDICARE, MEDICAID, SELFPAY ==
[2024-06-25 15:48] LABS: Basophils % 0.4 % (0.1-2.0); Eosinophils # 0.2 Kmm3 (0.0-0.4); Eosinophils % 2.1 % (0.1-12.0); Hematocrit 37.5 % (37.0-47.0); Hemoglobin 11.4 g/dL (12.2-16.2); Lymphocytes # 3.9 K/mm3 (0.7-4.5); Lymphocytes % 36.1 % (10-50); Mean Corpuscular HGB Conc 30.4 g/dL (31.8-35.4); Mean Corpuscular Hemoglobin 24.3 pg (27.0-31.2); Mean Corpuscular Volume 79.8 fl (81-99); Mean Platelet Volume 9.9 fl (7.4-10.4); Monocytes # 0.6 K/mm3 (0.1-1.0); Neutrophils # 5.9 K/mm3 (1.8-7.8); Neutrophils % 55.1 % (37.0-80.0); Nucleated Red Blood Cells # 0 10^3/uL; Nucleated Red Blood Cells % 0 %; Platelet Count 253 K/mm3 (142-424); Red Cell Distribution Width 16.3 % (11.5-17.5); Red Cell Distribution Width-SD 47.2 fL; White Blood Count 10.7 K/mm3 (4.8-10.8)
== END 2024-06-25 23:59 | disposition home or self-care (01) ==
LOC: LAB.DROPOF 15:38
PROVIDERS: PCP Family Medicine; Visit Provider Family Medicine
DX: R53.1 Weakness (principal); R55 Syncope and collapse; I49.2 Junctional premature depolarization; I49.3 Ventricular premature depolarization; N17.9 Acute kidney failure, unspecified
CPT/HCPCS: 85025

== ENCOUNTER 2024-07-15 06:57 | Outpatient (CLI) | payer MEDICARE, MEDICAID, SELFPAY ==
[2024-07-15 07:19] LABS: Basophils % 0.3 % (0.1-2.0); Eosinophils # 0.3 Kmm3 (0.0-0.4); Eosinophils % 2.8 % (0.1-12.0); Hematocrit 40.2 % (37.0-47.0); Immature Granulocytes # 0.04 10^3uL; Immature Granulocytes % 0.4 %; Lymphocytes # 3.5 K/mm3 (0.7-4.5); Lymphocytes % 34.2 % (10-50); Mean Corpuscular HGB Conc 29.9 g/dL (31.8-35.4); Mean Corpuscular Hemoglobin 24.4 pg (27.0-31.2); Mean Corpuscular Volume 81.7 fl (81-99); Mean Platelet Volume 9.6 fl (7.4-10.4); Monocytes # 0.5 K/mm3 (0.1-1.0); Monocytes % 5.3 % (1.7-9.3); Neutrophils # 5.8 K/mm3 (1.8-7.8); Nucleated Red Blood Cells # 0 10^3/uL; Nucleated Red Blood Cells % 0 %; Platelet Count 230 K/mm3 (142-424); Red Blood Count 4.92 M/mm3 (4.20-5.40); Red Cell Distribution Width 16.2 % (11.5-17.5); Red Cell Distribution Width-SD 47.6 fL; White Blood Count 10.1 K/mm3 (4.8-10.8)
[2024-07-15 08:32] LABS: Albumin Level 3.4 g/dl (3.5-5.0); Chloride 108 mmol/L (98-107)
[2024-07-15 08:33] LABS: Potassium 3.9 mmoL/L (3.5-5.1); Sodium 144 mmol/L (136-145)
[2024-07-15 08:35] LABS: Alanine Aminotransferase 12 U/L (12-78); Albumin/Globulin Ratio 1.5 (1.1-1.8); Anion Gap 9.9 mEq/L (5-15); Aspartate Amino Transferase 16 U/L (14-36); Blood Urea Nitrogen 17 mg/dl (7-17); Carbon Dioxide 30 mmol/L (22.0-30.0); Estimated Glomerular Filt Rate 37 ml/min (>60); GFR (African American) 44 ML/MIN (>60); Globulin 2.2 g/dL (1.3-3.2); Total Protein,Serum 5.6 g/dl (6.3-8.2)
[2024-07-15 08:36] LABS: Alkaline Phosphatase 94 U/L (38-126); Bilirubin,Total 0.2 mg/dl (0.2-1.3); Chol/HDL Ratio 2.5 (1-3.5); Cholesterol 101 mg/dl (140-200); Glucose 92 mg/dl (74-100); HDL Cholesterol 41 mg/dl (40-60); Iron 46 ug/dL (37-170); Triglycerides 120 mg/dl (30-150); VLDL Cholesterol 24 mg/dL (0-40)
[2024-07-15 08:45] LABS: Total Iron Binding Capacity 308 ug/dL (265-497)
[2024-07-15 08:47] LABS: Direct LDL Cholesterol 36.36 mg/dL (100-129)
[2024-07-15 09:05] LABS: Thyroid Stimulating Hormone 2.25 uIU/mL (0.465-4.68)
[2024-07-15 09:09] LABS: Ferritin 9.61 ng/ml (11.1-264)
[2024-07-15 10:16] LABS: Hemoglobin A1C 6.4 % (4.0-6.0)
== END 2024-07-15 23:59 | disposition home or self-care (01) ==
PROVIDERS: PCP Family Medicine; Visit Provider Family Medicine
DX: D64.9 Anemia, unspecified (principal); E11.9 Type 2 diabetes mellitus without complications; E78.5 Hyperlipidemia, unspecified; I10 Essential (primary) hypertension; E03.9 Hypothyroidism, unspecified
CPT/HCPCS: 36415; 80053; 80061; 82728; 83036; 83540; 83550; 84443; 85025

== ENCOUNTER 2024-12-23 08:56 | Outpatient (CLI) | payer MEDICARE, MEDICAID, SELFPAY ==
--- OUTSIDE RECORDS SUMMARY | 2017-06-02 11:00 | XMS_ITS | Continuity of Care Document ---
Author Organization [address] [place] [address] Address [address] [facility] [address] [place] [address] Phone Care Team Providers Care Dressmaker Or Tailor Name Role Phone Lee Blanco DPM Unavailable Unavailable Allergies, Adverse Reactions, Alerts Substance Reaction Status Criticality DIPHENHYDRAMINE HCL Active No Infor mation Medications Medication Instructions Dosage Effective Dates (start - stop) Status Comments metformin 500 mg tablet - Ac tive lisinopril 40 mg tablet - Ac tive atorvastatin 40 mg tablet - Active donepezil 10 mg tablet - Act abraham memantine 10 mg tablet - Act abraham mirtazapine 15 mg tablet - A ctive risperidone 0.5 mg tablet - Active Vesicare 5 mg tablet - Activ e levothyroxine 75 mcg tablet - Active clopidogrel 75 mg tablet - A ctive hydrochlorothiazide 25 mg tablet - Active venlafaxine ER 150 mg capsule,extended release 24 hr - Active glipizide 5 mg tablet - Acti ve Procedures Procedure Date DEBRIDEMENT OF NAIL(S) BY ANY METHOD(S); 6 OR MORE Complete Denture - Maxillary Denture Mandibular Lab traditional FRAMES PURCHASES FITTING OF SPECTACLES EXCEPT FOR APHAKIA BIFOCAL SPHERE BIFOCAL PLUS OR MINUS 7.12 TO P M Ophthalmological services, E/M Justin Adams nt,Comprehensive,1 or more visits DEBRIDEMENT OF NAIL(S) BY ANY METHOD(S); 6 OR MORE Diabetic Foot Exam Performed Subsequent Nursing Facility Care 2016 Bite Registration Denture Impression Periodic Oral Evaluation Compsve Oral Eval- New/Est Pat 16 Advance Directives Directive Yes / No Effective Date File Name No Information Encounters Encounter Description Practice Location Reason(s) For Visit Diagnoses Date Provider Providers Copied on Encounter [address] [place] [address], [id number] [place] [address], [place], [place], [id number], tel:[phone] [facility] Tinea unguiumType 2 diabetes w diabetic peripheral angiopath w/o gangreneLong term (current) use of oral hypoglycemic drugs May- 8 Bella Howard. [address] [facility], [address], [place], [place], [id number], [place]. tel:[phone] Referring Provider: Lee Quintanilla. [address] [place] [address], [id number] [place] [address], [place], [place], [id number], tel:[phone] [facility] Complete loss of teeth, unspecified cause, unspecified class May- 8 Lauraabundio Matthew. [address] [facility], [place], [place], [id number], [place]. tel:[phone] [place] [address], [address] [facility] [place], [place], [id number], [place] tel:[phone] [facility] Presbyopia May- 8 Rob Croft. [address] [facility], [place], [address], [place]. [address] [place] [address], [address] [facility], [place], [place], [id number], tel:[phone] [facility] Diabetic eye exam (chief complaint) Type 2 diabetes mellitus without complications Age-related nuclear cataract, bilateral 8 Buckt Guerda. [address] [facility], [place], [address], [place]. [facility], [address] [facility], [place], [place], [id number], [place] tel:[phone] [facility] Tinea unguiumType 2 diabetes mellitus with diabetic neuropathy, unspLong term (current) use of oral hypoglycemic drugs 8 Bella Howard. [address] [facility], [address], [place], [place], [id number], [place]. tel:[phone] Referring Provider: Lee Quintanilla. Subsequent Nursing Facility Care [facility], [address] [place], [place] [address], [place], [place], [id number], [place] tel:[phone] [facility] hearing loss (chief complaint) Unspecified hearing loss, bilateral 7 Bee-Hard alea Bernadine. [address] [facility], [address], [place], [address], [place]. Referring Provider: Lee Quintanilla. [facility], [address] [place], [place] [address], [place], [place], [id number], [place] tel:[phone] [facility] No Information 7 Dana-Hard alea Bernadine. [address] [facility], [address], [place], [address], [place]. [facility], [address] [place], [place] [address], [place], [place], [id number], [place] tel:[phone] [facility] No Information 7 Rich Bennett. [address] [facility], [address], [place], [address], [place]. tel:[phone] [facility], [address] [place], [place] [address], [place], [place], [id number], [place] tel:[phone] [facility] No Information Oct-0 7 Darvin Green. , [place]. tel:[phone] [facility], [address] [place], [place] [address], [place], [place], [id number], tel:[phone] [facility] Encounter for dental exam and cleaning w/o abnormal findings 7 Rich Bennett. [address], [place], [address], [place]. tel:[phone] [place] [address], [address] [place], [place], [id number], tel:[phone] [facility] Encounter for dental exam and cleaning w/o abnormal findings 6 Rich Bennett. [address], [place], [address], [place]. tel:[phone] Family History Family Member Type Diagnosis Age At Onset No Information Payers Payer name Insurance type Covered republican ID Authoriza tion(s) Medicare [facility] [id number] Medicaid [facility] [id number] Social History Type Description Quantity Date Captured Comments Alcohol Use Details Unknown Caffeine Use Details Unknown Tobacco Use Status No Information Smoking Status No Information Sex Female Chief Complaint And Reason For Visit No Information Reason For Referral Reason For Referral No Information Plan Of Treatment Date Type Action Status Appointment Elizabeth David BOOKED Patient Education Diabetes Foot Health: C are Instructio~ completed Patient Education Reduced Vision: Care In structions completed History Of Present Illness Encounter Date Complaint History Of Prese nt Illness Diabetic eye exam The 71 year ol d female presents for evaluation of Diabetic eye exam in the right eye and left eye. It occurs during the day. The onset was gradual. It affects both near and far vision. The symptom is intermittent. The condition is moderate. The condition is described as distorted. hearing loss The symptoms are reported as being moderate. The symptoms occur constantly. She states the symptoms are chronic. Patient is not interested in audiology services at this time. Pt agrees to ear exam and cleaning if needed. Functional Status Date Functional Assessmen t No Information Instructions Date Instruction Additional Infor mation Debridement and redu ction of painful mycotic nails x10 performed with 5 1/2 curved jaw double spring nail clippers and powered dremel tool w/ sanding disk and application of topical antifungal. Follow up 2-3 months for diabetic foot care. Related to Tinea unguium Follow up - We will schedule a follow up appointment in 6-9 months for a dilated fundus exam. Follow up in 3-6 months for Follow up in 6-9 months for Dilated Fundus Exam. Impression/Plan - Gl asses order will be processed at request of resident. Related to Age-related nuclear cataract, bilateral Impression/Plan - Ca taracts are moderate and are affecting visual acuity; however, no treatment recommended at this time. We will monitor for progression. Related to Age-related nuclear cataract, bilateral Impression/Plan - No active diabetic retinopathy present in either eye. We will monitor at regular intervals. Related to Type 2 diabetes mellitus without complications Debridement and redu ction of painful mycotic nails x10 performed with 5 1/2 curved jaw double spring nail clippers and powered dremel tool w/ sanding disk and application of topical antifungal. Follow up 2-3 months for diabetic foot care. Related to Tinea unguium Follow up in 6-9 mon ths or sooner if needed. 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
--- OUTSIDE RECORDS SUMMARY | 2024-12-23 09:01 | XMS_ITS | Clinical Summary ---
Author Organization [facility] Address [address] [place] [address] Care Team Providers Care Agriculture Laboratory Technician Name Role Phone Lee Quintanilla MD Primary Care Provider Un available Allergies Active Allergy Reactions Criticality Noted Date Comments No Known Drug Allergy 08/07/2015 Medications aspirin EC 325 MG EC tablet Take by mouth. 11/04/2013 Active Insulin Pen Needle (B-D UF III MINI PEN NEEDLES) 31G X 5 MM misc 03/17/2013 Active busPIRone (BUSPAR) 5 MG tablet Take by mouth 2 (two) times a day. 11/04/2013 Active fenofibrate (TRICOR) 145 MG tablet Take by mouth daily. 11/04/2013 Active hydrochlorothiaz hafsa (HYDRODIURIL) 25 MG tablet Take by mouth daily. 11/04/2013 Active levothyroxine (SYNTHROID, LEVOTHROID) 50 MCG tablet Take by mouth daily. 11/04/2013 Active lisinopril (PRINIVIL,ZESTRI L) 40 MG tablet Take by mouth daily. 11/04/2013 Active meloxicam (MOBIC) 15 MG tablet Take by mouth. 11/04/2013 Active metFORMIN (GLUCOPHAGE) 1000 MG tablet Take by mouth 2 (two) times a day. 07/07/2013 Active saxagliptin (ONGLYZA) 5 MG tablet Take by mouth. 01/14/2013 Active oxybutynin (DITROPAN) 5 MG tablet Take by mouth. 01/14/2013 Active simvastatin (ZOCOR) 10 MG tablet Take by mouth. 11/04/2013 Active venlafaxine XR (EFFEXOR-XR) 150 MG 24 hr capsule Take by mouth daily. 08/29/2013 Active Liraglutide (VICTOZA) 18 MG/3ML solution pen-injector Inject under the skin. 11/04/2013 Active vitamin D (ERGOCALCIFEROL) 19783 UNITS capsule capsule Take by mouth. 11/04/2013 Active donepezil (ARICEPT) 10 MG tablet Take 1 tablet by mouth Every Night. 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 Not on file 01/2023 Does Anyone Keep You from Co ntacting Others or Doint Things Outside the Home? Not on file 12/17/2022 Physical Sign of Abuse Present Not on file 1 Housing Stability Answer Date Recorded Current Living Arrangements Not on file 12/07 Potentially Unsafe Housing Conditions Not on kevin e 12/17/2022 Family and Community Support Answer Alexander e Recorded Help with Day-to-Day Activities Not on file 12/17/2022 Lonely or Isolated Not on file 12/17/2022 Employment Answer Date Recorded Do you want help finding or keeping work or a morales b? Not on file 12/17/2022 Disabilities Answer Date Recorded Concentrating, Remembering, or Making Decisions Difficulty Not on file 12/17/2022 Doing Errands Independently Difficulty Not on fi le 12/17/2022 Education Answer Date Recorded Help with school or training? Not on file Preferred Language Not on file 12/17/2022 Comments Unknown Sex and Gender Information Value Date Recorded Sex Assigned at Not on file Legal Sex Female 12:13 PM EDT Gender Identity Not on file Sexual Orientation Not on file Last Filed Vital Signs Vital Sign Reading Time Taken Comments Blood Pressure 138/78 03/18/2016 1:48 PM EST Pulse - - Temperature - - Respiratory Rate - - Oxygen Saturation - - Inhaled Oxygen Concentration - - Weight 90.7 kg (200 lb) 03/18/2016 1:48 PM EST Height 170.2 cm (5' 7 ) 03/18/2016 1:48 PM EST Body Mass Index 31.32 03/18/2016 1:48 PM EST Plan of Treatment Health Maintenance Due Date Last Done Comments ANNUAL PHYSICAL 1945 DXA SCAN 1945 HEPATITIS C SCREENING 1945 LIPID PANEL 1945 TDAP/TD VACCINES (1 - Tdap) 09/23/1966 Pneumococcal Vaccine 50+ (1 of 1 - PCV) 09/23/1997 ZOSTER VACCINE (1 of 2) 09/23/1997 RSV Vaccine - Adults (1 - 1-dose 75+ series) INFLUENZA VACCINE 10/07/2024 COVID-19 Vaccine (1 - 2023- season) 2024 Insurance MEDICARE A & B Care Teams Agriculture Laboratory Technician Relationship Specialty Start Date End Date Lee Quintanilla MD PCP - General 01/02/15
--- OUTSIDE RECORDS SUMMARY | 2024-12-23 09:02 | XMS_ITS | Clinical Summary ---
Author Organization 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 venlafaxine (EFFEXOR-XR) 75 mg Oral Capsule, Sust. Release 24 hrIndications:D epression,Anxie ty Take one capsule twice daily 60 Cap 6 6 Active mirtazapine (REMERON) 15 mg Oral TabletIndicatio ns:Depression,A nxiety Take one tablet by mouth at bedtime 30 Tab 6 6 Active LORazepam (ATIVAN) 2 mg/mL Inj SolutionIndicat ions:Anxiety with agitation Inject 1 ML into the muscle x 1. May repeat in 2 hours if ineffective 1 mL 4 Active clonazePAM (KLONOPIN) 0.5 mg Oral TabletIndicatio ns:Anxiety with agitation Take 1 Tablet by mouth daily. 30 Tablet 3 4 Active clonazePAM (KLONOPIN) 2 mg Oral Tablet Take 1 tab at 4 pm 30 Tablet 3 4 Active Active Problems Problem Noted Date Diagnosed Date Depression 10/11/2015 Anxiety 10/11/2015 Moderate Alzheimer's dementia with anxiety 10/11 Social History Tobacco Use Types Packs/Day Years Used Date Smoking Tobacco: Unknown Smokeless Tobacco: Never Tobacco Cessation:Counseling Given: No Alcohol Use Standard Drinks/Week Comments Not Currently 0 (1 standard drink = 0.6 oz pur e alcohol) Comments Unknown Sex and Gender Information Value Date Recorded Sex Assigned at Not on file Legal Sex Female 1:35 PM EDT Gender Identity Not on file Sexual Orientation Not on file Plan of Treatment Health Maintenance Due Date Last Done Comments Wellness Exam Medicare 09/23/1948 Hepatitis C Screening 09/23/1965 DTaP/TDaP/Td (1 - Tdap) 09/23/1966 Pneumococcal Vaccine 50+ (1 of 1 - PCV) 09/23/1997 Zoster (1 of 2) 09/23/1997 Bone Density Screening 09/23/2012 RSV or 60+ (1 - 1-d ose 75+ series) 09/23/2022 COVID-19 Vaccine (1 - 2023-2 5 season) 2024 Influenza Vaccine (#1) 2024 Hepatitis B Vaccine Aged Out No longe r eligible based on patient's age to complete this topic Meningococcal B Vaccine Aged Out No l onger eligible based on patient's age to complete this topic Insurance MEDICARE [place] PART A AND B MEDICAID [id number]
--- OUTSIDE RECORDS SUMMARY | 2024-12-23 09:02 | XMS_ITS | Clinical Summary ---
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 Name Role Phone Unavailable Primary Care Provider Unavailabl e Immunizations Immunization Administration Dates Next Due Pneumococcal Polysaccharide PPV23 04/02/2015 Social History Tobacco Use Types Packs/Day Years Used Date Smoking Tobacco: Never Comments Unknown Sex and Gender Information Value Date Recorded Sex Assigned at Not on file Legal Sex Female 7:30 PM EDT Gender Identity Not on file Sexual Orientation Not on file Last Filed Vital Signs Vital Sign Reading Time Taken Comments Blood Pressure - - Pulse - - Temperature - - Respiratory Rate - - Oxygen Saturation - - Inhaled Oxygen Concentration - - Weight 81.9 kg (180 lb 8.9 oz) 08/22/2015 10:15 AM EDT Height 175.3 cm (5' 9 ) 08/22/2015 10:00 AM EDT Body Mass Index 26.66 08/22/2015 10:00 AM EDT Plan of Treatment Not on file
[2024-12-23 09:25] LABS: Hematocrit 40.9 % (37.0-47.0); Hemoglobin 13.0 g/dL (12.2-16.2); Immature Granulocytes % 0.2 %; Mean Corpuscular HGB Conc 31.8 g/dL (31.8-35.4); Mean Corpuscular Hemoglobin 28.1 pg (27.0-31.2); Mean Corpuscular Volume 88.5 fl (81-99); Nucleated Red Blood Cells % 0 %; Platelet Count 215 K/mm3 (142-424); Red Blood Count 4.62 M/mm3 (4.20-5.40); Red Cell Distribution Width-SD 45.9 fL; White Blood Count 10.6 K/mm3 (4.8-10.8)
[2024-12-23 09:42] LABS: Alanine Aminotransferase 17 U/L (12-78); Albumin Level 3.3 g/dl (3.5-5.0); Albumin/Globulin Ratio 1.6 (1.1-1.8); Alkaline Phosphatase 98 U/L (38-126); Anion Gap 12.9 mEq/L (5-15); Aspartate Amino Transferase 22 U/L (14-36); Bilirubin,Total 0.4 mg/dl (0.2-1.3); Blood Urea Nitrogen 28 mg/dl (7-17); Calcium 8.5 mg/dl (8.4-10.2); Carbon Dioxide 27 mmol/L (22.0-30.0); Chloride 106 mmol/L (98-107); Cholesterol 91 mg/dl (140-200); Creatinine,Serum 1.30 mg/dl (0.52-1.04); Estimated Glomerular Filt Rate 40 ml/min (>60); GFR (African American) 48 ML/MIN (>60); Globulin 2.1 g/dL (1.3-3.2); Glucose 120 mg/dl (74-100); HDL Cholesterol 39 mg/dl (40-60); Potassium 3.9 mmoL/L (3.5-5.1); Sodium 142 mmol/L (136-145); Total Protein,Serum 5.4 g/dl (6.3-8.2); Triglycerides 122 mg/dl (30-150)
[2024-12-23 09:58] LABS: Free T4 (Free Thyroxine) 1.21 ng/dl (0.78-2.19)
[2024-12-23 09:59] LABS: Hemoglobin A1C 6.3 % (4.0-6.0)
[2024-12-23 10:13] LABS: Thyroid Stimulating Hormone 2.78 uIU/mL (0.465-4.68)
== END 2024-12-23 23:59 | disposition home or self-care (01) ==
PROVIDERS: PCP Family Medicine; Visit Provider Family Medicine
DX: E03.9 Hypothyroidism, unspecified (principal); E11.9 Type 2 diabetes mellitus without complications; D50.9 Iron deficiency anemia, unspecified
CPT/HCPCS: 36415; 80053; 80061; 83036; 84439; 84443; 85025